=== PATIENT | male | born 1935 | race Caucasian/White ===

== ENCOUNTER 2021-11-16 09:41 | Outpatient (CLI) | payer OTHER, SELFPAY ==
--- NOTE | 2021-11-16 10:05 | USCV_ITS ---
Rafaela Tapan Age: 85 Gender: M : 1935 Exam Date: 11/16/2021 10:29 Ordering Phys: WILSON CAPMOS MD Technologist: Ishmael Loaiza [place] [facility] [place]: AAA HISTORY: Diameter (cm) AP x Transverse x Length Velocity (cm/s) Waveform Prox Aorta: 2.72 x 3.19 x 5.35 81.80 Mid Aorta: 1.73 x 2.13 x 132.80 Distal Aorta: 3.76 x 3.79 x 6.61 107.40 Right Iliac Prox: 1.08 x 0.98 x 118.90 Left Iliac Prox: 1.50 x 1.08 x 118.90 Stent Prox Landing x x Aneurysmal Sac Max x x Lt Lat Sac Dim Rt Lat Sac Dim Stent Dist Landing x x Right Iliac Stent x x Left Iliac Stent x x Right Renal Art Left Renal Art FINDINGS: Comparison: none available. A fusiform abdominal aortic aneurysm is noted with a maximal diameter of 3.8 cm. Atherosclerotic plaque is noted in the abdominal aorta. There is evidence of atherosclerotic plaque no significan stenosis in the right common iliac artery. There is evidence of atherosclerotic plaque no significan stenosis in the left common iliac artery. CONCLUSIONS A fusiform abdominal aortic aneurysm is noted with a maximal diameter of 3.[address] Carly Angel DO (Electronically Signed) Final Date: 16 November 2021 15:03 S
== END 2021-11-16 09:42 | disposition home or self-care (01) ==
LOC: RAD 09:41
PROVIDERS: PCP Family Medicine; Visit Provider Family Medicine
DX: I71.4 Abdominal aortic aneurysm, without rupture (principal)
CPT/HCPCS: 93978

== ENCOUNTER 2022-11-16 08:44 | Outpatient (CLI) | payer OTHER, SELFPAY ==
--- NOTE | 2022-11-16 09:38 | USCV_ITS ---
Tapan Russo Age: 86 Gender: M : 1935 Exam Date: 11/16/2022 09:46 Ordering Phys: Mauricio Parks Technologist: CT Exam Location: [facility] [place] Indication: AAA HISTORY: Diameter (cm) AP x Transverse x Length Velocity (cm/s) Waveform Prox Aorta: 2.71 x 2.32 x 73.50 Mid Aorta: 2.54 x 1.99 x 102.10 Distal Aorta: 4.03 x 3.98 x 5.34 116.00 Right Iliac Prox: 1.33 x 1.13 x 147.20 Left Iliac Prox: 1.75 x 1.62 x 116.00 Stent Prox Landing x x Aneurysmal Sac Max x x Lt Lat Sac Dim Rt Lat Sac Dim Stent Dist Landing x x Right Iliac Stent x x Left Iliac Stent x x Right Renal Art Left Renal Art FINDINGS: Comp 11/16/21 CONCLUSIONS Fusiform Distal AAA measuring 4.0 x 3.9 x 5.3cm AP x transverse x length not significantly changed Normal iliac arteries. 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 Colin Martinez MD (Electronically Signed) Final Date: 16 November 2022 12:43 S
== END 2022-11-16 08:45 | disposition home or self-care (01) ==
PROVIDERS: PCP Family Medicine; Visit Provider Family Medicine
DX: I71.40 Abdominal aortic aneurysm, without rupture, unspecified (principal); I70.0 Atherosclerosis of aorta
CPT/HCPCS: 93978

== ENCOUNTER 2023-11-14 12:27 | Outpatient (CLI) | payer OTHER, SELFPAY ==
--- NOTE | 2023-11-14 12:36 | USCV_ITS ---
Rafaela Tapan Age: 87 Gender: M : 1935 Exam Date: 11/14/2023 12:49 Ordering Phys: Mauricio Parks Technologist: Exam Location: [facility] [place] Indication: aaa HISTORY: Diameter (cm) AP x Transverse x Length Velocity (cm/s) Waveform Prox Aorta: 1.60 x 1.90 x 110.60 Mid Aorta: 2.20 x 2.30 x 125.20 Distal Aorta: 3.50 x 3.90 x 109.00 Right Iliac Prox: 1.20 x 1.40 x 115.50 Left Iliac Prox: 1.20 x 1.30 x 115.00 Stent Prox Landing x x Aneurysmal Sac Max x x Lt Lat Sac Dim Rt Lat Sac Dim Stent Dist Landing x x Right Iliac Stent x x Left Iliac Stent x x Right Renal Art Left Renal Art FINDINGS: Comparison:. 11/16/21 A fusiform abdominal aortic aneurysm is noted with a maximal diameter of 3.9 cm. No evidence of periaortic fluid is detected. There is evidence of atherosclerotic plaque no significan stenosis in the right common iliac artery. There is evidence of atherosclerotic plaque no significan stenosis in the left common iliac artery. CONCLUSIONS No change seen from prior study. Stable 3.[address] Carly Angel DO (Electronically Signed) Final Date: 14 November 2023 15:20 S
== END 2023-11-14 12:28 | disposition home or self-care (01) ==
LOC: RAD 12:27
PROVIDERS: PCP Family Medicine; Visit Provider Family Medicine
DX: I71.40 Abdominal aortic aneurysm, without rupture, unspecified (principal)
CPT/HCPCS: 93978

== ENCOUNTER 2024-05-13 11:38 | Emergency (ER) | payer OTHER, SELFPAY ==
[2024-05-13 11:46] VITALS: BP 135/53; PULSE 76; RESP 16; TEMP 36.3; O2SAT 95; BMI 27.3
--- NOTE | 2024-05-13 12:11 | ECG_ITS ---
[facility] [place] [facility] Date: 2024-05-13 Pat Name: Tapan Russo Department: Room: Gender: Male Residential Property Tax Appraiser: : 1935 Requested By: Matheus Ferreira Order Number: [id number] Ciera MD: Hira Cha M.D. Measurements Intervals [place] Rate: 81 P: -10 NV: 173 QRS: -58 QRSD: 110 T: 120 QT: 395 QTc: 459 Interpretive Statements SINUS RHYTHM WITH FREQUENT VENTRICULAR PREMATURE COMPLEXES POSSIBLE LEFT ATRIAL ENLARGEMENT [-0.1mV P-WAVE IN V1/V2] LEFT ANTERIOR FASCICULAR BLOCK [QRS AXIS <= -45, QR IN I, RS IN II] INFERIOR MYOCARDIAL INFARCTION , OF INDETERMINATE AGE [40+ ms Q WAVE AND/OR ST/T ABNORMALITY IN II/aVF] ANTEROSEPTAL MYOCARDIAL INFARCTION , OF INDETERMINATE AGE [40+ ms Q WAVE IN V1-V4] MODERATE T-WAVE ABNORMALITY, CONSIDER LATERAL ISCHEMIA [-0.1+ mV T-WAVE IN I/aVL/V5/V6] No previous ECG available for comparison Electronically Signed On 05-16-2024 22:08:16 JV BASEBALL COACH by Hira Cha M.D. [email or web address]
--- NOTE | 2024-05-13 12:12 | XRR_ITS ---
PROCEDURE INFORMATION: Exam: XR Chest Exam date and time: 05/13/2024 12:45 PM Age: 88 years old Clinical indication: Shortness of breath; Additional info: SOB TECHNIQUE: Imaging protocol: Radiologic exam of the chest. Views: 1 view. COMPARISON: US CV duplex aorta [id number] 11/14/2023 12:49 PM FINDINGS: Lungs: There are some indistinct bibasilar opacities likely secondary to small pleural effusions and adjacent subsegmental atelectasis. The remaining lung miranda are clear. Pleural spaces: See lungs Heart/Mediastinum: Heart is enlarged with pulmonary vascular redistribution indicating elevated central venous pressure. Bones/joints: Mild deformity left 5th, 6th and 7th ribs placed secondary to old healed fractures. XR/XR chest 1V portable [id number] IMPRESSION: 1. Cardiomegaly with elevated central venous pressure. 2. Small bibasilar pleural effusions there may be cardiogenic in nature with adjacent bibasilar subsegmental atelectasis.
[2024-05-13 13:17] LABS: Basophils % 0.6 %; Eosinophils # 0.1 10^3/uL (0.0-0.8); Eosinophils % 2.1 %; Hematocrit 38.5 % (37-53); Lymphocytes # 0.9 10^3/uL (0.8-4.8); Lymphocytes % 18.2 %; Mean Corpuscular HGB Conc 32.5 g/dL (30-55); Mean Corpuscular Hemoglobin 32.4 pg (27-33); Mean Corpuscular Volume 99.7 fl (82-101); Mean Platelet Volume 10.1 fL (7.4-10.4); Monocytes # 0.6 10^3/uL (0.2-0.9); Monocytes % 11.1 %; Neutrophils # 3.47 10^3/uL (1.8-7.7); Neutrophils % 67.8 %; Nucleated Red Blood Cells % 0 %; Platelet Count 260 10^3/cmm (157-399); Red Blood Count 3.86 10^6/uL (3.85-5.65); Red Cell Distribution Width 13.7 % (12.1-15.1); White Blood Count 5.12 10^3/uL (3.29-11.43)
[2024-05-13 13:51] VITALS: BP 132/82; PULSE 76; RESP 16; O2SAT 97
[2024-05-13 13:53] LABS: Alanine Aminotransferase 29 U/L (0-41); Albumin Level 4.4 g/dL (3.5-5.2); Alkaline Phosphatase 69 U/L (40-130); Anion Gap 12.8 (5-19); Aspartate Amino Transferase 21 U/L (0-40); Blood Urea Nitrogen 16 mg/dL (8-23); Calcium 9.4 mg/dL (8.5-10.5); Carbon Dioxide 28 mmol/L (22-29); Chloride 100 mmol/L (98-107); Creatinine Clr Calc Pharmacy 50.2492; Globulin 2.4 g/dL (1.3-4.6); Glucose 101 mg/dL (65-115); NT Pro B Type Natriuretic Pept 6536 pg/mL (0-450); Osmolality Calculated 283 mOsm/kg (285-295); Potassium 4.8 mmol/L (3.5-5.1); Sodium 136 mmol/L (136-145); Total Bilirubin 0.8 mg/dL (0.15-1.2); Total Protein 6.8 g/dL (6.6-8.7)
[2024-05-13] MEDS: FUROsemide 10 mg/mL SDV 10mL 80 MG IVP (14:00)
[2024-05-13 14:02] VITALS: BP 120/71; PULSE 73; RESP 16; O2SAT 95
--- NOTE | 2024-05-13 14:07 | ED_ITS ---
HPI - SOB/Dyspnea 2 General: Chief Complaint: Shortness of Breath/Dyspnea Stated Complaint: feet/legs swollen/SOB Time Seen by Provider: 05/13/24 13:53 Source: patient Mode of arrival: ambulatory Limitations: no limitations History of Present Illness: HPI Narrative: 88-year-old male states that having some slight shortness of breath over the last week he has been having some leg swelling as well. He is concerned he has CHF. He denies any chest pain denies any cough denies any fever he is not hypoxic here. Denies any worse improved factors. Associated symptoms: Deny abdominal pain, chest pain, fever(s), nausea or vomiting Related Data Home Medications Medication Instructions Recorded Confirmed finasteride 5 mg tablet tab PO 04/28/22 04/28/22 levothyroxine 25 mcg capsule 25 mcg PO DAILY 04/28/22 04/28/22 losartan 100 mg tablet tab PO 04/28/22 04/28/22 nifedipine 30 mg tablet,extended tab PO 04/28/22 04/28/22 release omeprazole 20 mg capsule,delayed cap PO 04/28/22 04/28/22 release simvastatin 80 mg tablet tab PO 04/28/22 04/28/22 tamsulosin 0.4 mg capsule cap PO 04/28/22 04/28/22 Previous Rx's Medication Instructions Recorded prednisone 20 mg tablet 20 mg PO DAILY 5 days #5 tabs 04/28/22 furosemide 40 mg tablet (Lasix) 40 mg PO DAILY #30 tabs 05/13/24 Allergies Allergy/AdvReac Type Severity Reaction Status Date / Time No Known Allergies Allergy Unverified 04/28/22 18:18 Review of Systems 2 Const: Denies: fever(s), chills, body aches or change in appetite ENMT: Denies: throat pain or dental pain Card: Denies: chest pain Resp: Reports: dyspnea GI: Denies: abdominal pain, nausea, vomiting or diarrhea Musc: Denies: neck pain or back pain Skin/Breast: Denies: rash Neuro: Denies: headache(s) Physical Exam 2 Const: COMMON NORMALS: no acute distress, patient oriented x3 and healthy appearing HENMT: COMMON NORMALS: normocephalic and atraumatic HEAD & SCALP: n ormocephalic and atraumatic Eye: COMMON NORMALS: Equal, round and reactive pupils present and EOMs intact bilaterally PUPIL: Yes Equal, round and reactive pupils present Neck/C-Spine: COMMON NORMALS: full ROM and supple Chest: COMMONS NORMALS: normal inspection of the chest and normal palpation of entire chest wall Resp: COMMON NORMALS: normal respiratory effort, No retractions, No use of accessory muscles and clear to auscultation bilaterally AUSCULTATION: clear to auscultation bilaterally Cardio: COMMON NORMALS: regular rate, regular rhythm and No murmurs present (Cardio) RATE: regular rate RHYTHM: regular rhythm Extremity: COMMON NORMALS: full ROM NARRATIVE EXTREMITY EXAM: 2+ le edema Neuro: COMMON NORMALS: patient oriented x3, moves all extremities and no focal motor deficits Psych: COMMON NORMALS: mental status grossly normal, Normal thought process present and cooperative THOUGHT PROCESS: Normal thought process present Skin: COMMON NORMALS: no rashes or lesions noted and no wounds GENERAL SKIN EXAM: no rashes or lesions noted Course 2 Vital Signs: Vital signs: Vital Signs Temperature 97.4 F L 05/13/24 11:46 Pulse Rate 72 05/13/24 14:29 Respiratory Rate 16 05/13/24 14:29 Blood Pressure 127/65 05/13/24 14:29 Pulse Oximetry 97 05/13/24 14:29 Oxygen Delivery Me thod Room Air 05/13/24 11:46 MDM - SOB/Dyspnea Medical Decision Making Patient presents for shortness of breath along with lower extremity edema did give him dose of Lasix he has no hypoxia here has been having no chest pain we will start him on Lasix we will get him follow-up with cardiology I informed him if he worsens he is return he understands agrees to plan. Medical Records I reviewed the patient's medical records. Lab Data I reviewed the patient's lab results. 05/13/24 12:55 05/13/24 12:55 Labs/Radiology: Radiology Impressions Chest X-Ray 05/13/24 12:12 IMPRESSION: 1. Cardiomegaly with elevated central venous pressure. 2. Small bibasilar pleural effusions there may be cardiogenic in nature with adjacent bibasilar subsegmental atelectasis. Laboratory Results WBC 5.12 10^3/uL (3.29-11.43) 05/13/24 12:55 RBC 3.86 10^6/uL (3.85-5.65) 05/13/24 12:55 Hgb 12.50 g/dL (11.27-16.99) 05/13/24 12:55 Hct 38.5 % (37-53) 05/13/24 12:55 MCV 99.7 fl (82-101) 05/13/24 12:55 MCH 32.4 pg (27-33) 05/13/24 12:55 MCHC 32.5 g/dL (30-55) 05/13/24 12:55 RDW 13.7 % (12.1-15.1) 05/13/24 12:55 Plt Count 260 10^3/cmm (157-399) 05/13/24 12:55 MPV 10.1 fL (7.4-10.4) 05/13/24 12:55 Neut % (Auto) 67.8 % 05/13/24 12:55 Lymph % (Auto) 18.2 % 05/13/24 12:55 Mcpherson % (Auto) 11.1 % 05/13/24 12:55 Eos % (Auto) 2.1 % 05/13/24 12:55 Baso % (Auto) 0.6 % 05/13/24 12:55 Neut # (Auto) 3.47 10^3/uL (1.8-7.7) 05/13/24 12:55 Lymph # (Auto) 0.9 10^3/uL (0.8-4.8) 05/13/24 12:55 Mcpherson # (Auto) 0.6 10^3/uL (0.2-0.9) 05/13/24 12:55 Eos # (Auto) 0.1 10^3/uL (0.0-0.8) 05/13/24 12:55 Baso # (Auto) 0.0 10^3/uL (0.0-0.1) 05/13/24 12:55 Nucleated RBC % (auto) 0 % 05/13/24 12:55 Nucleated RBCs # 0.0 /100WBC 05/13/24 12:55 Sodium 136 mmol/L (136-145) 05/13/24 12:55 Potassium 4.8 mmol/L (3.5-5.1) 05/13/24 12:55 Chloride 100 mmol/L (98-107) 05/13/24 12:55 Carbon Dioxide 28 mmol/L (22-29) 05/13/24 12:55 Anion Gap 12.8 (5-19) 05/13/24 12:55 BUN 16 mg/dL (8-23) 05/13/24 12:55 Creatinine 1.1 mg/dL (0.7-1.2) 05/13/24 12:55 GFR Calculation Not Reportable 05/13/24 12:55 Glucose 101 mg/dL (65-115) 05/13/24 12:55 Calculated Osmolality 283 mOsm/kg (285-295) L 05/13/24 12:55 Calcium 9.4 mg/dL (8.5-10.5) 05/13/24 12:55 Total Bilirubin 0.8 mg/dL (0.15-1.2) 05/13/24 12:55 AST 21 U/L (0-40) 05/13/24 12:55 ALT 29 U/L (0-41) 05/13/24 12:55 Alkaline Phosphatase 69 U/L (40-130) 05/13/24 12:55 NT-Pro-B Natriuret Pep 6536 pg/mL (0-450) H 05/13/24 12:55 Total Protein 6.8 g/dL (6.6-8.7) 05/13/24 12:55 Albumin 4.4 g/dL (3.5-5.2) 05/13/24 12:55 Globulin 2.4 g/dL (1.3-4.6) 05/13/24 12:55 All radiology interpretation(s) finalized by discharge EKG Data EKG 1: I personally reviewed and interpreted this EKG as follows: EKG Interpretation Date: 05/13/24 EKG interpretation time: 11:49 Interpretation: nsr hr [address] elevation qrs 110 qtc 422 Discharge Plan Discharge Patient Disposition: Home Clinical Impression: Edema of both lower legs Condition: Stable Prescriptions: New furosemide [Lasix] 40 mg tablet 40 mg PO DAILY Qty: 30 0RF No Action levothyroxine 25 mcg capsule 25 mcg PO DAILY finasteride 5 mg tablet PO tamsulosin 0.4 mg capsule PO simvastatin 80 mg tablet PO losartan 100 mg tablet PO omeprazole 20 mg capsule,delayed release(DR/EC) PO nifedipine 30 mg tablet extended release PO prednisone 20 mg tablet 20 mg PO DAILY 5 Days Qty: 5 0RF Discharge Orders: Discharge ED (Routine); Ordered 05/13/24 Ordered By: Matheus Ferreira Referrals: Hira Cha M.D [Physician] - 4-7 days Mauricio Parks [Primary Care Provider] - Discharge Diet: Advance as tolerated Discharge Activity: Resume usual activity Patient Instructions: Leg Edema (ED), Edema (ED) Coding Level of Care Code ED Sports Lawyer for Lennie Garcia
[2024-05-13 14:29] VITALS: BP 127/65; PULSE 72; RESP 16; O2SAT 97
--- NOTE | 2024-05-16 09:32 | DCPLANNER ---
messaged heart care for er f/u
== END 2024-05-13 14:38 | disposition home or self-care (01) ==
PROVIDERS: Emergency Provider Emergency Medicine; PCP Family Medicine
DX: R60.0 Localized edema (principal)
CPT/HCPCS: 71045; 80053; 83880; 85025; 93005; 96374; 99285; J1940

== ENCOUNTER 2024-06-04 13:19 | Outpatient (CLI) | payer OTHER, SELFPAY ==
[2024-06-04 13:21] VITALS: BMI 27.3
--- NOTE | 2024-06-04 13:31 | ECG_ITS ---
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 Interpretive Statements EXERCISE STRESS TEST EXERCISE DATA: The patient was exercised by Tomas protocol. Baseline heart rate was 81 beats per minute. Baseline blood pressure was 109/67 millimeters of mercury. Maximal predicted heart rate was 134 beats per minute. Maximum heart rate achieved was 130 which was 97% of the maximum predicted heart rate. Maximum blood pressure was 144/47 millimeters of mercury. Total exercise time was 2 minutes and 53 seconds. Maximum METs achieved was 5.5. The reason for ending the test was completion of protocol. The patient complained of shortness of breath during the stress test, which then resolved at the end of the test. ELECTROCARDIOGRAM: BASELINE: Showed sinus rhythm, left axis deviation, PVCs and interventricular conduction delay, no significant ST-T changes at the baseline noted. [] EXERCISE: At the peak exercise level, [] No significant ST-T changes suggestive of ischemia noted. [] RECOVERY: During the recovery period, heart rate dropped appropriately. No significant ST-T changes in the recovery suggestive of ischemia noted. [] CONCLUSION: 1. Exercise capacity is fair 2. Heart rate response was appropriate 3. Blood pressure response was appropriate 4. Symptoms not suggestive of ischemia. 5. Electrocardiogram portion of the stress test was not suggestive of ischemia. Electronically Signed On 06-25-2024 21:50:47 CDT by Hira Cha M.D. [email or web address]
--- NOTE | 2024-06-04 13:32 | USCV_ITS ---
Rafaela Tapan Age: 88 Gender: M : 1935 Exam Date: 06/04/2024 13:47 Ordering Phys: Mauricio Parks Technologist: Exam Location: [facility] – [place] Indication: Edema Rhythm: Sinus Patient History: Cardiac Medications: none Medications in past 24 hours: none Contrast: Stress Results Protocol: Tomas Total dose(mL): Exercise Duration (min:sec): 02:53 METS: 5.5 Resting HR: 81 Resting BP: 115 / 72 Peak HR: 130 Peak BP: 144 / 67 Max Predicted HR: 134 97 % Max Predicted HR Target HR: 114 Double Product: [id number] Stress Summary: The patient's target heart rate was achieved BP Response: Normal Reason for Termination: Test terminated after reaching maximum heart rate Cardiac Symptoms: Short of Breath ECG Analysis Resting ECG: Sinus rhythm with interventricular conduction delay and occasional PVCs. Stress ECG: Sinus tachycardia with no significant ST T wave changes Arrhythmia: PVCs MEASUREMENTS (Male/Female) Normal Values FINDINGS At baseline LV systolic function is mildly reduced with EF of 40 to 45%. Moderate hypokinesis of anterolateral and inferolateral ma are seen. At Stress imgaging, LV systolic function slightly increases to 50 to 55%. However significant hypokinesis of inferolateral and anterolateral ma seen. CONCLUSIONS 1. Abnormal baseline echocardiogram with EF of 40-45% and regional wall motion abnormalities. This already reduces sensitivity and specificity of stress echocardiogram 2. After exercise worsening hypokinesis of inferolateral and anterolateral ma seen, demonstrating abnormal response and abnormal stress test 3. EKG portion of the stress test does not shows significant abnormalities. Hira Cha MD (Electronically Signed) Final Date: 14 June 2024 14:09 S
[2024-06-04 14:15] VITALS: BP 112/64; PULSE 86
== END 2024-06-04 13:20 | disposition home or self-care (01) ==
PROVIDERS: PCP Family Medicine; Visit Provider Family Medicine
DX: R60.9 Edema, unspecified (principal); R93.1 Abnormal findings on diagnostic imaging of heart and coronary circulation; I51.89 Other ill-defined heart diseases
CPT/HCPCS: 93017; 93350

== ENCOUNTER → 2024-06-07 08:48 | Outpatient (BNVA) | payer OTHER, SELFPAY | PROVIDERS: PCP Family Medicine; Visit Provider Internal Medicine | DX: R06.09 Other forms of dyspnea (principal); R60.0 Localized edema; R06.02 Shortness of breath | CPT/HCPCS: 99204 ==

== ENCOUNTER → 2024-06-28 11:38 | Outpatient (BNVA) | payer OTHER, SELFPAY | PROVIDERS: PCP Family Medicine; Visit Provider Internal Medicine | DX: Z09 Encounter for follow-up examination after completed treatment for conditions other than malignant neoplasm (principal); R06.00 Dyspnea, unspecified; R60.0 Localized edema; R94.39 Abnormal result of other cardiovascular function study; Z87.891 Personal history of nicotine dependence; R58 Hemorrhage, not elsewhere classified | CPT/HCPCS: 36415; 80048; 85025; 85610; 99204 ==

== ENCOUNTER 2024-07-11 13:53 | Outpatient (CLI) | payer OTHER, SELFPAY ==
--- NOTE | 2024-07-11 14:15 | USCV_ITS ---
Tapan Mcdaniel Age: 88 Gender: M : 1935 Exam Date: 07/11/2024 14:05 Ordering Phys: Hira Cha M.D ([email or web address]) Technologist: Exam Location: [facility] [place] Indication: CP BP: 120 / 70 HR: 72 Rhythm: Sinus Technical Quality: Adequate MEASUREMENTS (Male / Female) Normal Values 2D ECHO LV Diastolic Diameter PLAX 5.7 cm 4.2 - 5.9 / 3.9 - 5.3 cm IVS Diastolic Thickness 1.1 cm 0.6 - 1.0 / 0.6 - 0.9 cm IVS Systolic Thickness 1.8 cm LVPW Diastolic Thickness 1.4 cm 0.6 - 1.0 / 0.6 - 0.9 cm LVPW Systolic Thickness 1.9 cm LVOT Diameter 2.0 cm LV Ejection Fraction 2D Teich 60.0 % LV Ejection Fraction MOD 4C 33.4 % LV Ejection Fraction MOD 2C 31.1 % LV Ejection Fraction 2C AL 32.0 % LA Diameter 4.6 cm RA Systolic Volume 4C AL 69.4 ml RA Systolic Volume 4C MOD 68.8 ml Aorta at Sinotubular Diameter 3.2 cm IVC Diameter 1.7 cm M-MODE LA Ao Ratio MM 1.7 AV Cusp Separation MM 1.7 cm DOPPLER AV Peak Velocity 160.0 cm/s LVOT Peak Velocity 111.0 cm/s AV Area Cont Eq vti 2.6 cm squared AV Area Cont Eq pk 2.3 cm squared MV Peak Velocity 168.0 cm/s MV Area PHT 5.3 cm squared Mitral E to A Ratio 1.9 TV Peak Velocity 234.5 cm/s TR Peak Velocity 336.0 cm/s TR Peak Gradient 45.2 mmHg TV Peak E Velocity 99.0 cm/s PV Peak Velocity 91.0 cm/s FINDINGS Left Ventricle Left ventricular is normal in size. LV systolic function is severely reduced with EF of 25-30%. Moderate global hypokinesis with severe hypokinesis of inferolateral, anterior and anterolateral ma. Right Ventricle Normal in size and function Right Atrium Dilated Left Atrium Dilated Mitral Valve Mild mitral annular calcification. Mild mitral regurgitation. Aortic Valve Aortic valve is thickened. No significant stenosis or regurgitation Tricuspid Valve Mild tricuspid regurgitation. RVSP is 45-50 mmHg. This is consistent with the moderate pulmonary hypertension Pulmonic Valve Mild pulmonic regurgitation. Pericardium Normal Aorta Normal in size IVC Appears to be normal CONCLUSIONS LV systolic function is severely reduced with EF of 25-30%. Above mentioned regional wall motion abnormalities. Biatrial dilation Mild mitral regurgitation Mild tricuspid regurgitation. Moderate pulmonary hypertension Mild pulmonic regurgitation. Hira Cha MD (Electronically Signed) Final Date: 17 July 2024 10:48 S
== END 2024-07-11 13:54 | disposition home or self-care (01) ==
PROVIDERS: PCP Family Medicine; Visit Provider Internal Medicine
DX: I08.1 Rheumatic disorders of both mitral and tricuspid valves (principal); I27.20 Pulmonary hypertension, unspecified; R07.9 Chest pain, unspecified; R06.02 Shortness of breath
CPT/HCPCS: 93306

== ENCOUNTER 2024-07-17 08:38 | Outpatient (CLI) | payer OTHER, SELFPAY ==
--- NOTE | 2024-07-17 09:00 | XACV_ITS ---
Exam Room: 2 Ht: 173 cm Wt: 86 kg BSA: 2.05 m2 Gender: Male : 1935 Any Known Allergies: No known allergies Exam Priority: Routine Procedure(s): Procedure Description: Diagnostic procedure Procedure Description: Right Heart Catheterization Procedure Description: O2 saturation Procedure Description: Coronary IVUS Procedure Description: Miscellaneous Procedure Description: ACT Procedure Description: Coronary Angiography Procedure Description: Pressure Wire Diagnostic Cath Status: Elective Diagnostic Findings * INDICATION: LV dysfunction/ abnormal stress test. * Left Main has mild 20% ostial stenosis. * Circumflex has no disease. * LAD has significant 70% proximal stenosis. IVUS shows an MLA of 3.4mm2. iFR could not be performed because of equipment malfunction. * RCA has mid to distal severe 70-80% stenosis. * Left circumflex artery is a large vessel with no significant disease. Conclusions 1. Severe proximal LAD and mid to distal RCA stenosis. Patient has severely elevated cardiac pressures at this time. Needs diuresis before PCI. Patient given option of inpatient diuresis but he wants outpatient management. Will be seen in office in 1 week and then scheduled for PCI of LAD and RCA. Recommendations * We will uptitrate diuretics . Will have staged PCI of RCA and LAD. Outpatient cardiology follow up in 1 week. Interventional RX Recommendation: PCI w/o planned CABG Diagnostic RX Recommendation: PCI w/o planned CABG Anticoagulation: Heparin Pressures Phase:Rest AO : 113 / 74 ( 99 ) @ 3:08:00 PM RV : 72 / 12 / 16 @ 2:54:00 PM PA : 70 / 33 ( 49 ) @ 2:53:00 PM RA : a wave = 23 v wave = 14 mean = 14 @ 2:55:00 PM PCW : a wave = 42 v wave = 52 mean = 39 @ 2:52:00 PM O2 Content Phase:Rest PA : O2 Content O2: 47.3 @ 2:53:00 PM Saturations Phase:Rest AO : 89 @ 3:08:00 PM PA : 47 @ 2:53:00 PM Cardiac Output Phase:Rest Angie : 3 @ 2:54:50 PM Angie Cardiac Index: 2 @ 2:54:50 PM Flow Phase:Rest Qp : 3 @ 2:54:50 PM Qs : 3 @ 2:54:50 PM Clinical Evaluation EBL: 5mL-10mL Procedural Details Pre-Procedure Time Out. Identified patient by full name and date of as verbalized by the patient/guarantor. Does the consent match the physician's order: Yes. Accurate & Complete Informed Consent: Yes. Inpatient/Outpatient History & Physical on Chart: Yes. If H&P is completed, is and addenduem needed: No; If yes, is the addendum complete: N/A. Visualize and Verify Site with Patient/Guarantor: N/A. Relevant Radiology Images available: Yes. Pre-op teaching completed and patient verbalized understanding. The risks, benefits, and alternatives of sedation and/or procedure were discussed by physician. The patient agrees to continue. Procedure started. [facility] Clinical Fraility Score: 4: Vulnerable. Manager Cardiology Indications: LV Dysfunction/GODDARD/Abnormal stress echo. Chest Pain Symptom Assessment: Atypical Angina. Cardiovascular Instability: No. Correct patient, site and procedure confirmed by cath team. PERRLA. Strong, equal hand collections clerk bilaterally. Lungs clear x 5 lobes. IV Site on Arrival: 20 gauge in the right anticubital for the RHC procedure. IV Site on Arrival: 20 gauge in the left anticubital. IV Fluids: 0.9% NaCl at KVO. 50 mL infused prior to receiver/laborer. Pre Procedural Pulses: bilateral dorsalis pedis was Doppled. Pre Procedural Pulses: bilateral posterior tibial was Doppled. Pre Procedural Pulses: bilateral radial was 2+. Patient on room air for RHC. right groin was prepped with chloroprep then draped in the usual sterile fashion. right radial was prepped with chloroprep then draped in the usual sterile fashion. right brachial was prepped with chloroprep then draped in the usual sterile fashion. Physician notified. Baseline sample Acquired. HR: 79 BPM. Patient's roommate is in CPRU rom #2. Dr. Cha will update at the compeltion of the procedure. Equipment: 6F - Radial. Cardiac Cath Pack. Cloze Manifold Kit Model BT 2000. Heparinized Saline (2 units/mL), 1000 mL bag. Physician arrived. Physician scrubbed in. Immediate Pre-Procedure Time Out. Correct Patient: Yes; Correct Procedure: Yes; Correct Site: Yes; Correct Patient Position: Yes; Correct Supplies: Yes; Dried Flammable Prep: Yes; Blood Products Available: N/A;. Micropuncture wire inthrough the existing 20g PIV in the right brachial vein. Lidocaine 1% infiltrated to the right brachial. [place]-Carlos catheter inserted. [place] guidewire in through the swan. Oximetry samples were obtained. Normal venous range: 60-85%. Normal arterial range: 95-100%. Pressure measurements obtained. [place]-Carlos out. RT called to run sats. Lidocaine 1% infiltrated to the right radial. Arterial access obtained. A 5 [place] TIG catheter in over the exchange J wire. Hand injection performed through the catheter. exchange J wire out. 0.035 x 260cm stiff angled glidewire in through the catheter. Glidewire out. Multiple views taken of right coronary artery. Catheter removed over the exchange J wire. A 5 [place] JL3.5 catheter in over the exchange J wire. Multiple views taken of left coronary artery. Catheter removed over the exchange J wire. A 5 [place] JL4 catheter in over the exchange J wire. Multiple views taken of left coronary artery. Catheter removed over the exchange J wire. 6 [place] XB 3 guide catheter was inserted over the exchange J wire. iFR guidewire was advanced through the guide catheter to lesion in the left main. iFR wire out to re-shape. iFR guidewire was advanced through the guide catheter to lesion in the left main. iFR measurement of the left main obtained = 1.06. IVUS catheter in over the iFR wire. IVUS of the left main performed. IVUS catheter out over the iFR wire. Runthrough guidewire was advanced through the guide catheter to the LAD. iFR wire out. IVUS catheter in over the Runthrough guidewire. IVUS of the LAD performed. IVUS catheter out over the Runthrough guidewire. Runthrough wire out. Guide catheter out. Dr. Cha scrubbed out. ACT drawn. Results seconds. Therapeutic limits - pre-heparin administration 90-150 seconds and monitoring heparin during a vascular procedure >250 seconds. A Manual Compression was successful obtaining hemostatsis at the Right Brachial Vein insertion site. A TR Band was successful obtaining hemostatsis at the Right Radial artery insertion site. Post Procedure: Pulses reassessed and unchanged. PERRLA. Strong, equal hand collections clerk bilaterally. No VTE prophylaxis required. Medication's Wasted: Lidocaine 1% = 16 mL. Medication's Wasted: Nitro = 49.6 mg. Medication's Wasted: Heparin = 3000 untis. Medication's Wasted: Other = Versed 1 mg. Medication's Wasted: Other = Fentanyl 50 mcg. Total IV fluids: 32 mL. Post-op diagnosis: Significant Proximal LAD and Mid RCA stenosis, elevated cardiac pressures. Will diuresis and stage intervention. Complications: none. Estimated blood loss: 5mL-10mL. Responsiveness - Normal response to verbal stimuli; alert and oriented, PERRLA. Airway - Unaffected, no intervention required; spontaneous ventilation. Circulation: W/N/L, pulses unchanged. Nausea/Vomiting: No. Procedure completed. Patient transferred by wheelchair to ICU. Vital chart was stopped. Access Site Site: Right Brachial Vein Sheath Size: 6 Fr Hemostasis Method: Manual Compression Hemostasis Success: Successful Site: Right Radial artery Sheath Size: 6 Fr Hemostasis Method: TR Band Hemostasis Success: Successful Procedure Medications Start: 1:30 PM Stop: 1:30 PM Medication: Benadryl Amount: 25 mg Route: I.V. Start: 2:03 PM Stop: 2:03 PM Medication: Heparin Amount: 5000 units Route: I.V. Start: 1:46 PM Stop: 1:46 PM Medication: Versed Amount: 1 mg Route: I.V. Start: 1:46 PM Stop: 1:46 PM Medication: Fentanyl Amount: 50 mcg Route: I.V. Start: 2:00 PM Stop: 2:00 PM Medication: Nitrogylcerin Amount: 200 mcg Route: I.A. Start: 2:30 PM Stop: 2:30 PM Medication: Heparin Amount: 3000 units Route: I.V. Start: 2:18 PM Stop: 2:18 PM Medication: Nitrogylcerin Amount: 200 mcg Route: I.A. I, the attending physician, have reviewed and verified all procedure medications. Yes, all medications given per verbal order History/Risk Factors Hypertension: No Dyslipidemia: No Peripheral Arterial Disease (PAD): No Myocardial Infarction ([place]): No Obesity: No Renal Disease: No Tobacco Use: Former Prior Interventions PCI: No CABG: No Valve Surgery: No Report Signatures Finalized by Hira Cha MD on 07/28/2024 11:43 AM
[2024-07-17] MEDS: diphenhydrAMINE 50 mg Capsule PO (09:35)
[2024-07-17 09:42] VITALS: BP 132/73; PULSE 53; RESP 16; TEMP 36.4; O2SAT 96; BMI 28.7
[2024-07-17 09:43] LABS: Anion Gap 14.9 (5-19); Blood Urea Nitrogen 20 mg/dL (8-23); Calcium 9.3 mg/dL (8.5-10.5); Carbon Dioxide 25 mmol/L (22-29); Chloride 103 mmol/L (98-107); Glucose 100 mg/dL (65-115); Osmolality Calculated 291 mOsm/kg (285-295); Potassium 3.9 mmol/L (3.5-5.1); Sodium 139 mmol/L (136-145)
--- NOTE | 2024-07-17 13:45 | W.PM.OPSUD ---
Surgery/Procedure H&P Update DATE OF PROCEDURE: July 17, 2024 DATE H&P PERFORMED: 06/28/24 H&P UPDATE INFORMATION: I have reviewed H&P completed within last 30 days, I have examined patient prior to procedure and No changes to prior documentation PREOP DIAGNOSIS: LV dysfunction/abnormal stress test PRIMARY INDICATION FOR PROCEDURE: LV dysfunction/abnormal stress test PLANNED PROCEDURE: Operation Date: 07/17/24 10:00 Proposed Procedures p Cardiac Catheterization - RLHC w/wo LV & [place](Bilateral) - Hira Cha M.D Possible percutaneous coronary intervention PATIENT REASSESSED PRIOR TO SEDATION, WITH NO CHANGE NOTED: Yes PHYSICAL EXAM: alert, oriented x 3, clear to auscultation bilaterally and regular rate & rhythm AIRWAY EVAL/ANESTHESIA PLAN: normal airway, ASA III, Local Anesthesia, Risks, benefits & alternatives of sedation and/or procedure discussed and Patient agrees to continue as planned ADDITIONAL INFORMATION: Moderate sedation
[2024-07-17 14:03] LABS: Alveolar-Arterial Oxygen Gradi 8.3 mmHg (5-10); Arterial Blood Gas Hematocrit 35.9 % (42-52); Blood Gas Operator Identificat BROMA; Blood Gas Sample Type Arterial; Carboxyhemoglobin 1.1 %THgb (0.4-20.1); HGB O2 Sat 46.4 % (95-100); Methemoglobin 0.8 % (0.4-1.5); Oxygen Device ROOM AIR; Total Hemoglobin 11.7 g/dL (14-18)
[2024-07-17 14:05] LABS: Blood Gas Sample Site PA
[2024-07-17 14:09] LABS: Alveolar-Arterial Oxygen Gradi 5.4 mmHg (5-10); Arterial Blood Gas Hematocrit 35.6 % (42-52); Blood Gas Operator Identificat BROMA; Blood Gas Sample Site AO; Blood Gas Sample Type Arterial; Carboxyhemoglobin 1.2 %THgb (0.4-20.1); HGB O2 Sat 87.5 % (95-100); Methemoglobin 0.9 % (0.4-1.5); Oxygen Device ROOM AIR; Total Hemoglobin 11.6 g/dL (14-18)
[2024-07-17 15:09] VITALS: PULSE 90
[2024-07-17 15:10] VITALS: PULSE 93; RESP 25
[2024-07-17 15:13] VITALS: BP 115/73; PULSE 87; RESP 16
[2024-07-17 15:15] VITALS: BP 115/73; PULSE 84; RESP 29; TEMP 36.1; O2SAT 92
[2024-07-17 15:27] VITALS: BMI 28.5
[2024-07-17 15:42] VITALS: PULSE 87
--- NOTE | 2024-07-17 17:05 | PM.PROC ---
Procedure Note: Date of procedure: 07/17/24 Pre-procedure diagnosis: LV dysfunction/abnormal stress test Post-procedure diagnosis: other (Severe RCA and proximal LAD stenosis) Procedure: Severe RCA and proximal LAD stenosis. Patient has elevated right and left-sided cardiac pressures. Will diurese patient and plan for PCI as outpatient. Performing Provider: Hira Cha Estimated blood loss (mL): 10 Complications: None Condition: stable Disposition: same day Coding Level of Care Code Acute Code for Lennie Garcia
--- NOTE | 2024-07-17 17:12 | PC.NURSE ---
Patient arrived from laboratory chemist at 1515 with a TR band to the right wrist. Patient was stable and comfortable. At 1713 TR band was removed with no hematoma and bleeding present.
--- NOTE | 2024-07-17 17:42 | PC.NURSE ---
Dr. Cha ordered to give the patient 40 mg of lasix IVP once before going home.
[2024-07-17] MEDS: FUROsemide 10 mg/mL SDV 4mL 40 MG IVP (17:55)
--- NOTE | 2024-07-17 18:33 | PC.NURSE ---
Patient was given and explained all discharge instructions. All prescriptions were sent to their preferred pharmacy. Patient was stable upon discharge. Patient left with friend.
== END 2024-07-17 18:25 | disposition home or self-care (01) ==
LOC: CCL 14:54 → ICU 15:09
PROVIDERS: PCP Family Medicine; Visit Provider Internal Medicine
DX: I25.10 Atherosclerotic heart disease of native coronary artery without angina pectoris (principal); I50.1 Left ventricular failure, unspecified; Z87.891 Personal history of nicotine dependence; K21.9 Gastro-esophageal reflux disease without esophagitis
CPT/HCPCS: 36415; 80048; 82810; 85347; 92978; 93454; 93571; 96374; 96375; 99152; 99153; C1751; C1753; C1769; C1887; C1894; J1200; J1644; J1940; J2250; J3010; J3490; J7030; J9999; Q0163; Q9967

== ENCOUNTER → 2024-07-30 14:48 | Outpatient (BNVA) | payer OTHER, SELFPAY | PROVIDERS: PCP Family Medicine; Visit Provider Nurse Practitioner Family | DX: I25.10 Atherosclerotic heart disease of native coronary artery without angina pectoris (principal); R06.09 Other forms of dyspnea; I11.0 Hypertensive heart disease with heart failure; I50.9 Heart failure, unspecified; E78.5 Hyperlipidemia, unspecified; Z87.891 Personal history of nicotine dependence | CPT/HCPCS: 36415; 80048; 83880; 99214 ==

== ENCOUNTER 2024-08-20 07:12 | Outpatient (CLI) | payer OTHER, MEDICARE, SELFPAY ==
[2024-08-20] VITALS (7 sets, daily range): BP systolic 102–113; BP diastolic 45–61; PULSE 66–77; RESP 16–25; TEMP 36.5–36.9; O2SAT 95–96; BMI 27.0
--- NOTE | 2024-08-20 07:30 | XACV_ITS ---
Exam Room: 2 Ht: 173 cm Wt: 81 kg BSA: 1.98 m2 Gender: Male : 1935 Any Known Allergies: No known allergies Exam Priority: Routine Procedure(s): Procedure Description: Diagnostic procedure Procedure Description: PCI procedure Procedure Description: Drug Eluting Coronary Stent Procedure Description: PTCA Procedure Description: Miscellaneous Procedure Description: ACT Procedure Description: Coronary Angiography Procedure Description: Pressure Wire Diagnostic Cath Status: Elective Diagnostic Findings * INDICATION: Patient is scheduled to have staged PCI of mid to distal RCA and proximal LAD. * Left Main has mild ostial disease. Was confirmed with IVUS during the diagnostic procedure.. * Circumflex has no significant disease. * Proximal Left Anterior Descending: obstructive 70% stenosis, RADHA: 3 flow. This was confirmed to be significant with IVUS on initial angiogram.. * Mid Right Coronary Artery to Distal Right Coronary Artery: obstructive 70% stenosis, RADHA: 3 flow. We performed IFR of RCA which was abnormal at 0.82.. * Coronary angiography shows right dominance. PCI Status: Elective PCI Indication: Staged PCI Interventional Findings * Procedure detail: We engaged RCA with JR4 guide catheter. IV heparin was administered to maintain anticoagulation. iFR was performed and was significantly abnormal at 0.82. We predilated the stenosis with 2.5 x 20 mm NC balloon. This was followed by placement of 2.5 x 30 mm resolute [place] drug-eluting stent. At this time final angiogram was performed that showed excellent stent expansion and no residual stenosis. Guidewire and guide catheter were removed. We then turned our attention to LAD. XB 3.5 guide catheter was used to engage the left main artery. Run-through wire was used to cross the stenosis. We predilated the stenosis with 3.5 x 15 mm noncompliant balloon. This was followed by placement of 3.5 x 18 mm resolute [place] drug-eluting stent. We then postdilated the stent with 3.75 x 8 mm NC balloon. At this time final angiogram was performed that showed excellent stent expansion, no residual stenosis and RADHA-3 flow. Patient left the Quarry Supervisor Open Pit in stable condition.. * Proximal Left Anterior Descendin% stenosis treated with a MDT NC EUPHORA RX [id number] BALLOON, MDT R BINDU 3.5X18 ALONZO, and MDT NC EUPHORA RX [id number] BALLOON. 0% residual stenosis, RADHA: 3 flow. * Mid Right Coronary Artery to Distal Right Coronary Artery: 70% stenosis treated with a MDT NC EUPHORA RX [id number] BALLOON, and MDT R BINDU 2.5X30 ALONZO. 0% residual stenosis, RADHA: 3 flow. Conclusions 1. Severe mid to distal RCA stenosis s/p successful revascularization with 1 stent. Severe proximal LAD stenosis status post successful revascularization with 1 stent.. 2. Proximal Left Anterior Descending was treated with a Balloon, Drug Eluting Stent, and Balloon. 3. Mid Right Coronary Artery to Distal Right Coronary Artery was treated with a Balloon, and Drug Eluting Stent. Recommendations * Dual antiplatelet therapy with aspirin and plavix. * High intensity statin therapy. * Outpatient cardiology follow up in 2 weeks. Interventional RX Recommendation: PCI w/o planned CABG Diagnostic RX Recommendation: PCI w/o planned CABG Anticoagulation: Heparin Pressures Phase:Rest AO : 115 / 63 ( 86 ) @ 12:12:00 PM 96 / 59 ( 76 ) @ 12:20:00 PM 112 / 50 ( 76 ) @ 12:25:00 PM Clinical Evaluation EBL: 5mL-10mL Procedural Details Procedure Consent Obtained. Pre-Procedure Time Out. Identified patient by full name and date of as verbalized by the patient/guarantor. Does the consent match the physician's order: Yes. Accurate & Complete Informed Consent: Yes. Inpatient/Outpatient History & Physical on Chart: Yes. If H&P is completed, is and addenduem needed: No; If yes, is the addendum complete: N/A. Visualize and Verify Site with Patient/Guarantor: N/A. Relevant Radiology Images available: Yes. Pre-op teaching completed and patient verbalized understanding. The risks, benefits, and alternatives of sedation and/or procedure were discussed by physician. The patient agrees to continue. Procedure started. [facility] Clinical Fraility Score: 3: Managing Well. Quarry Supervisor Open Pit Indications: Stable Known CAD. Chest Pain Symptom Assessment: Typical Angina Symptoms. Correct patient, site and procedure confirmed by cath team. Current diagnosis: Chest Pain. PERRLA. Strong, equal hand director of claims bilaterally. Lungs clear x 5 lobes. IV Site on Arrival: 20 gauge in the left anticubital. IV Fluids: 0.9% NaCl at KVO. 0 mL infused prior to laborer [place]. Pre Procedural Pulses: bilateral dorsalis pedis was Doppled. Pre Procedural Pulses: bilateral radial was 1+. Pre Procedural Pulses: bilateral posterior tibial was 1+. Oxygen started at 2liters/min via nasal canula. bilateral groins was prepped with chloroprep then draped in the usual sterile fashion. Baseline sample Acquired. HR: 73 BPM. Baseline sample Acquired. HR: 67 BPM. Physician arrived. Physician scrubbed in. Immediate Pre-Procedure Time Out. Correct Patient: Yes; Correct Procedure: Yes; Correct Site: Yes; Correct Patient Position: Yes; Correct Supplies: Yes; Dried Flammable Prep: Yes; Blood Products Available: Yes;. Lidocaine 1% infiltrated to the right groin. Arterial access obtained with micropuncture set. 6 maldiv[place] JR 4 guide catheter was inserted over the wire. Wire out. Glidewire inserted. Wire out. FFR guidewire was advanced through the guide catheter to lesion in the mid RCA. IFR Result: 0.82. Runthrough guidewire was advanced through the guide catheter to lesion in the mid RCA. IFR wire out. Inflation number : 1 A MDT LUPE EUPHORA RX [id number] BALLOON was prepped and advanced across the Mid RCA , then inflated to 12 AURELIA for 0:14 seconds. Inflation number: 2 The MDT NC EUPHORA RX 2.39V97TC BALLOON was reinflated across the Mid RCA, to 12 AUERLIA for 0:07 seconds. Balloon out. Inflation Number : 3 A MDT R BINDU 2.5X30 ALONZO -Lot Number# _[id number] EXP: 10/28/2025 was prepped and advanced across the Mid RCA. The stent was deployed at 12 AURELIA for 0:20 seconds. Stent balloon out over wire. Results checked. Wire out. ACT drawn. Results out of range high seconds. Therapeutic limits - pre-heparin administration 90-150 seconds and monitoring heparin during a vascular procedure >250 seconds. Guide catheter out over the glidewire. 6 maldivian XB 3.5 guide catheter was inserted over the wire. Runthrough guidewire was advanced through the guide catheter to lesion in the prox LAD. Inflation number : 1 A MDT NC EUPHORA RX 3.68Q44QT BALLOON was prepped and advanced across the Prox LAD , then inflated to 14 AURELIA for 0:13 seconds. Balloon out. Inflation Number : 2 A MDT R BINDU 3.5X18 ALONZO -Lot Number# _[id number] EXP: 10/27/2025 was prepped and advanced across the Prox LAD. The stent was deployed at 12 AURELIA for 0:18 seconds. Stent balloon out over wire. Inflation number : 3 A MDT NC EUPHORA RX [id number] BALLOON was prepped and advanced across the Prox LAD , then inflated to 12 AURELIA for 0:14 seconds. Inflation number: 4 The MDT NC EUPHORA RX 3.89N92OT BALLOON was reinflated across the Prox LAD, to 16 AURELIA for 0:19 seconds. Inflation number: 5 The MDT NC EUPHORA RX 3.89K82CU BALLOON was reinflated across the Prox LAD, to 14 AURELIA for 0:10 seconds. Balloon out. Results checked. Wire out. ACT drawn. Results out of range high results. Therapeutic limits - pre-heparin administration 90-150 seconds and monitoring heparin during a vascular procedure >250 seconds. Guide catheter out. A Right femoral angiogram was performed to determine safe placement of closure device. A Suture was successful obtaining hemostatsis at the Right Femoral artery insertion site. Sheath(s) sutured into position with 2-0 silk and sterile 4x4's and Op-site applied over the site. No oozing or signs and symptoms of hematoma noted. Arterial sheath flushed and connected to tranducer and pressure bag with heparinized saline. Post Procedure: Pulses reassessed and unchanged. PERRLA. Strong, equal hand director of claims bilaterally. No VTE prophylaxis required. ACT drawn. Results 267 seconds. Therapeutic limits - pre-heparin administration 90-150 seconds and monitoring heparin during a vascular procedure >250 seconds. Medication's Wasted: Lidocaine 1% = 10 mL. Medication's Wasted: Other = Fentanyl 50mcg. Medication's Wasted: Heparin = 1000 units. Total IV fluids: 55 mL. Post-op diagnosis: Severe stenosis of mid RCA and Prox LAD. Status post PCI placement of 2 ALONZO. Complications: None. Estimated blood loss: 5mL-10mL. Responsiveness - Normal response to verbal stimuli; alert and oriented, PERRLA. Airway - Unaffected, no intervention required; spontaneous ventilation. Circulation: W/N/L, pulses unchanged. Nausea/Vomiting: No. Procedure completed. Patient transferred by bed to 1st floor. Access Site Site: Right Femoral artery Sheath Size: 6 Fr Hemostasis Method: Suture Hemostasis Success: Successful Procedure Medications Start: 10:56 AM Stop: 10:56 AM Medication: Versed 1 mg and Fentanyl 25 mcg Amount: 1 Route: I.V. Start: 11:02 AM Stop: 11:02 AM Medication: Heparin Amount: 7000 units Route: I.V. Start: 11:09 AM Stop: 11:09 AM Medication: Versed 1 mg and Fentanyl 25 mcg Amount: 1 Route: I.V. Start: 11:31 AM Stop: 11:31 AM Medication: Heparin Amount: 1000 units Route: I.V. Start: 11:38 AM Stop: 11:38 AM Medication: 0.9% Saline Amount: 100 ml/hr Route: I.V. drip Start: 11:51 AM Stop: 11:51 AM Medication: Plavix Amount: 600 mg Route: P.O. I, the attending physician, have reviewed and verified all procedure medications. Yes, all medications given per verbal order History/Risk Factors Hypertension: Yes Dyslipidemia: Yes Peripheral Arterial Disease (PAD): No Myocardial Infarction ([place]): No Obesity: No Renal Disease: No Tobacco Use: Former Prior Interventions PCI: No CABG: No Valve Surgery: No Report Signatures Finalized by Hira Cha MD on 09/06/2024 06:00 PM
[2024-08-20 08:19] LABS: Basophils % 0.8 %; Eosinophils # 0.3 10^3/uL (0.0-0.8); Eosinophils % 5.9 %; Hematocrit 39.3 % (37-53); Lymphocytes # 1.3 10^3/uL (0.8-4.8); Lymphocytes % 26.8 %; Mean Corpuscular HGB Conc 32.8 g/dL (30-55); Mean Corpuscular Hemoglobin 30.9 pg (27-33); Mean Corpuscular Volume 94.2 fl (82-101); Mean Platelet Volume 10.5 fL (7.4-10.4); Monocytes # 0.6 10^3/uL (0.2-0.9); Monocytes % 11.8 %; Neutrophils # 2.58 10^3/uL (1.8-7.7); Neutrophils % 54.5 %; Nucleated Red Blood Cells % 0 %; Platelet Count 219 10^3/cmm (157-399); Red Blood Count 4.17 10^6/uL (3.85-5.65); Red Cell Distribution Width 14.8 % (12.1-15.1); White Blood Count 4.74 10^3/uL (3.29-11.43)
[2024-08-20] MEDS: diphenhydrAMINE 50 mg Capsule PO (08:20)
[2024-08-20 08:56] LABS: Blood Urea Nitrogen 27 mg/dL (8-23); Calcium 9.2 mg/dL (8.5-10.5); Carbon Dioxide 27 mmol/L (22-29); Chloride 101 mmol/L (98-107); Creatinine Clr Calc Pharmacy 45.8348; Glucose 96 mg/dL (65-115); Osmolality Calculated 291 mOsm/kg (285-295); Sodium 138 mmol/L (136-145)
[2024-08-20 08:57] LABS: Anion Gap 14.8 (5-19); Potassium 4.8 mmol/L (3.5-5.1)
--- NOTE | 2024-08-20 09:01 | W.PM.OPSUD ---
Surgery/Procedure H&P Update DATE OF PROCEDURE: August 20, 2024 DATE H&P PERFORMED: 07/30/24 H&P UPDATE INFORMATION: I have reviewed H&P completed within last 30 days, I have examined patient prior to procedure and No changes to prior documentation PREOP DIAGNOSIS: Staged PCI of LAD and RCA PRIMARY INDICATION FOR PROCEDURE: Staged PCI of LAD and RCA PLANNED PROCEDURE: Operation Date: 08/20/24 08:30 Proposed Procedures p Percutaneous Coronary Intervention - Staged PCI(Not Applicable) - Hira Cha M.D PATIENT REASSESSED PRIOR TO SEDATION, WITH NO CHANGE NOTED: Yes PHYSICAL EXAM: alert, oriented x 3, clear to auscultation bilaterally and regular rate & rhythm AIRWAY EVAL/ANESTHESIA PLAN: normal airway, ASA III, Local Anesthesia, Risks, benefits & alternatives of sedation and/or procedure discussed and Patient agrees to continue as planned ADDITIONAL INFORMATION: Moderate sedation
--- NOTE | 2024-08-20 12:01 | P.PCN_ITS ---
Procedure Note: Date of procedure: 08/20/24 Pre-procedure diagnosis: Severe proximal LAD and mid to distal RCA stenosis. Plan for staged PCI Post- procedure diagnosis: other (Status post revascularization of proximal LAD with 1 stent. Status post successful vascularization of mid to distal RCA with 1 stent after confirmation of severity of lesion with IFR.) Procedure: Proximal LAD has severe stenosis confirmed with IVUS on diagnostic cath s/p successful revascularization with 1 stent. Mid to distal RCA has moderate to severe stenosis confirmed with abnormal IFR to be significant. Status post accessible revascularization with 1 stent. Dual antiplatelet therapy with aspirin and Plavix. High intensity statin therapy Performing Provider: Hira Cha Estimated blood loss (mL): 10 Complications: None Condition: stable Disposition: floor Coding Level of Care Code Acute Code for Lennie Fwkaur
--- NOTE | 2024-08-20 12:22 | PC.NURSE ---
patient received from dental laboratory manager via bed. s/p lhc via right groin with sheath and pressure bag in place. No s/s of bleeding or hematoma formation observed. Instructed patient on site care and restrictions. Patient verbalized complete understanding. Meal provided.
[2024-08-20] MEDS: sodium chloride 0.9% 1,000 ML 100 ML IV (12:59)
[2024-08-20 14:57] LABS: Partial Thromboplastin Time 163.2 SECONDS (23.9-36.7)
--- NOTE | 2024-08-20 17:57 | PC.NURSE ---
Initiated sheath removal at 1724 per protocol. Hemostasis achieved immediately. Maintained pressure to site for 20min. No s/s of bleeding or hematoma formation observed. Dr Cha at bedside. VS wnl. Covered site with 2x2 and bio-occlusive. Instructed patient on site care and restrictions. Patient verbalized complete understanding. Will continue to monitor.
[2024-08-21 02:44] LABS: Basophils # 0.1 10^3/uL (0.0-0.1); Basophils % 0.8 %; Eosinophils # 0.3 10^3/uL (0.0-0.8); Eosinophils % 4.2 %; Hematocrit 34.4 % (37-53); Lymphocytes # 1.2 10^3/uL (0.8-4.8); Lymphocytes % 19.2 %; Mean Corpuscular HGB Conc 32.6 g/dL (30-55); Mean Corpuscular Hemoglobin 31.1 pg (27-33); Mean Corpuscular Volume 95.6 fl (82-101); Mean Platelet Volume 10.1 fL (7.4-10.4); Monocytes # 0.6 10^3/uL (0.2-0.9); Monocytes % 10.1 %; Neutrophils # 4.11 10^3/uL (1.8-7.7); Neutrophils % 65.5 %; Nucleated Red Blood Cells % 0 %; Platelet Count 179 10^3/cmm (157-399); Red Cell Distribution Width 14.6 % (12.1-15.1); White Blood Count 6.26 10^3/uL (3.29-11.43)
[2024-08-21 03:02] LABS: Anion Gap 13.9 (5-19); Blood Urea Nitrogen 23 mg/dL (8-23); Calcium 8.7 mg/dL (8.5-10.5); Carbon Dioxide 25 mmol/L (22-29); Chloride 106 mmol/L (98-107); Creatinine Clr Calc Pharmacy 55.0017; Glucose 98 mg/dL (65-115); Osmolality Calculated 294 mOsm/kg (285-295); Potassium 4.9 mmol/L (3.5-5.1); Sodium 140 mmol/L (136-145)
[2024-08-21 04:26] VITALS: BP 128/52; PULSE 86; RESP 20; TEMP 36.9; O2SAT 93
[2024-08-21 05:51] VITALS: PULSE 68
[2024-08-21 07:46] VITALS: BP 106/56; PULSE 69; RESP 17; TEMP 36.7; O2SAT 97
[2024-08-21] MEDS: clopidogrel 75 mg Tablet PO (07:47)
[2024-08-21] MEDS: levothyroxine 25 mcg Tablet PO (07:47)
[2024-08-21] MEDS: aspirin 81 mg EC Tablet PO (07:48)
--- NOTE | 2024-08-21 07:52 | PC.NURSE ---
Dressing to right groin remains c,d,i without s/s of bleeding or hematoma formation observed. Patient denies pain or swelling to site. Instructed patient on site care and restrictions. He verbalized complete understanding. Will continue to monitor.
--- NOTE | 2024-08-21 10:21 | P.DS_ITS ---
<Statement entered by Hira Cha M.D - 08/23/24 09:33> Patient was cared for in conjunction with an advanced practice practitioner.? I reviewed the chart and all pertinent data including imaging, telemetry, and laboratory results.? I discussed the patient in detail with the advanced practice practitioner.? Please see their note for complete discharge summary, testing results and agreed upon plan of care for the patient. Discharge Providers Date of Admission: 08/20/2024 Date of Discharge: August 21, 2024 Attending Provider at Admission: Hira Cha M.D Attending Provider at Discharge: Hira Cha M.D Primary Care Provider: Mauricio Parks Reason for Visit Reason for Visit: I25.10 Brief History: Patient underwent coronary angiogram in July and finding severe RCA and LAD stenosis, patient desired to have the procedure performed as an outpatient. After he was diuresed with Lasix procedure was scheduled. Hospital Course Hospital Course He was brought to the hospital yesterday for staged PCI of the proximal LAD ALONZO x 1 and mid RCA with ALONZO x 1. Overnight he has done well and feels ready for discharge today. No chest pain or shortness of breath this morning. No complications with right femoral cath site. Blood pressure and heart rate are well-controlled. Due to noted PVCs on telemetry we will add metoprolol succinate 25 mg daily. Continue aspirin and Plavix. No lifting greater than 5 pounds for the next 4 days. Follow-up in the cardiology clinic in the next 7 to 10 days. Physical Exam Const: COMMON NORMALS: no acute distress and patient oriented x3 GENERAL APPEARANCE: cooperative ORIENTATION/CONSCIOUSNESS: Yes awake, Yes oriented to person, Yes oriented to place and Yes oriented to time Chest: COMMONS NORMALS: normal inspection of the chest and normal palpation of entire chest wall CHEST: Yes Symmetrical chest wall rise Resp: COMMON NORMALS: normal respiratory effort, No retractions, No use of accessory muscles and clear to auscultation bilaterally AUSCULTATION: clear to auscultation bilaterally Cardio: COMMON NORMALS: regular rate, regular rhythm, S1 normal heart sound present, S2 normal heart sound present, No gallops present (Cardio), No clicks present (Cardio), No murmurs present (Cardio) and No rub (Cardio) RATE: regular rate RHYTHM: regular rhythm HEART SOUNDS: S1 normal heart sound present and S2 normal heart sound present PERIPHERAL PULSES: radial pulses present positive right 2+ and femoral pulses present positive right 2+ Neuro: COMMON NORMALS: patient oriented x3 and moves all extremities SENSORIUM/ORIENTATION: Yes oriented to person, Yes oriented to place and Yes oriented to time Skin: WOUNDS: Yes surgical site (no hematoma palpable) Details: no odor Discharge Data Studies Completed and Pending Pending at discharge Category Date Time Status SIMULATION SOFTWARE ENGINEER request for service Routine Exams 08/20/24 07:30 Taken Laboratory Results WBC 6.26 10^3/uL (3.29-11.43) 08/21/24 02:22 RBC 3.60 10^6/uL (3.85-5.65) L 08/21/24 02:22 Hgb 11.20 g/dL (11.27-16.99) L 08/21/24 02:22 Hct 34.4 % (37-53) L 08/21/24 02:22 MCV 95.6 fl (82-101) 08/21/24 02:22 MCH 31.1 pg (27-33) 08/21/24 02:22 MCHC 32.6 g/dL (30-55) 08/21/24 02:22 RDW 14.6 % (12.1-15.1) 08/21/24 02:22 Plt Count 179 10^3/cmm (157-399) 08/21/24 02:22 MPV 10.1 fL (7.4-10.4) 08/21/24 02:22 Neut % (Auto) 65.5 % 08/21/24 02:22 Lymph % (Auto) 19.2 % 08/21/24 02:22 [place] % (Auto) 10.1 % 08/21/24 02:22 Eos % (Auto) 4.2 % 08/21/24 02:22 Baso % (Auto) 0.8 % 08/21/24 02:22 Neut # (Auto) 4.11 10^3/uL (1.8-7.7) 08/21/24 02:22 Lymph # (Auto) 1.2 10^3/uL (0.8-4.8) 08/21/24 02:22 [place] # (Auto) 0.6 10^3/uL (0.2-0.9) 08/21/24 02:22 Eos # (Auto) 0.3 10^3/uL (0.0-0.8) 08/21/24 02:22 Baso # (Auto) 0.1 10^3/uL (0.0-0.1) 08/21/24 02:22 Nucleated RBC % (auto) 0 % 08/21/24 02:22 Nucleated RBCs # 0.0 /100WBC 08/21/24 02:22 APTT 37.0 SECONDS (23.9-36.7) H D 08/20/24 15:40 Sodium 140 mmol/L (136-145) 08/21/24 02:22 Potassium 4.9 mmol/L (3.5-5.1) 08/21/24 02:22 Chloride 106 mmol/L (98-107) 08/21/24 02:22 Carbon Dioxide 25 mmol/L (22-29) 08/21/24 02:22 Anion Gap 13.9 (5-19) 08/21/24 02:22 BUN 23 mg/dL (8-23) 08/21/24 02:22 Creatinine 1.0 mg/dL (0.7-1.2) 08/21/24 02:22 GFR Calculation Not Reportable 08/21/24 02:22 Glucose 98 mg/dL (65-115) 08/21/24 02:22 Calculated Osmolality 294 mOsm/kg (285-295) 08/21/24 02:22 Calcium 8.7 mg/dL (8.5-10.5) 08/21/24 02:22 Vitals Last Vital Signs Temp 98.0 F 08/21/24 07:46 Pulse 69 08/21/24 07:46 Resp 17 08/21/24 07:46 BP 106/56 08/21/24 07:46 Pulse Ox 97 08/21/24 07:46 O2 Del Method Room Air 08/21/24 07:46 Discharge Plan Discharge Patient Disposition: Home Prescriptions: New clopidogrel 75 mg Tablet 75 mg PO DAILY Qty: 90 3RF metoprolol succinate 25 mg tablet extended release 24 hr 25 mg PO DAILY Qty: 90 3RF Continued levothyroxine 25 mcg capsule 25 mcg PO DAILY finasteride [Proscar] 5 mg tablet 5 mg PO BEDTIME tamsulosin 0.4 mg capsule 0.8 mg PO BEDTIME omeprazole 20 mg capsule,delayed release(DR/EC) 20 mg PO DAILY aspirin 81 mg tablet,delayed release (DR/EC) 81 mg PO DAILY Qty: 90 3RF furosemide [Lasix] 40 mg tablet 40 mg PO DAILY Qty: 90 3RF losartan [Cozaar] 100 mg tablet 100 mg PO DAILY Qty: 90 3RF potassium chloride [K-Tab] 20 mEq tablet extended release 20 meq PO BID Qty: 180 3RF simvastatin 80 mg tablet 80 mg PO BEDTIME Discharge Orders: Discharge Order (Routine); Ordered 08/21/24 Ordered By: Trixie Samano Referrals: Alycia Ramon NP [Nurse Practitioner, Cardiology] - 08/29/24 1:30 pm Mauricio Parks [Primary Care Provider] [facility]erral [facility] Diet: Advance as tolerated Activity: Increase activity as tolerated Patient Instructions: Coronary Angioplasty (DC) Activity Restrictions/Additional Instructions: No lifting over 5 pounds for the next 4 days. Print Language: Indonesian Discharge Attestations Time Spent in Discharge Care*: less than 30 min Quality Metrics Clinical Quality Measures [ No reported AMI, CVA or VTE this stay] Coding Level of Care Code Acute Code for Chg Radha
--- NOTE | 2024-08-21 10:57 | PC.NURSE ---
Patient discharged to home. Instruction provided regarding follow up needs, new medications and site care with restrictions. Patient verbalized complete understanding. Dressing remains c,d,i without s/s of bleeding or hematoma formation observed. Patient denies pain to site. No distress observed. New Rx tranmitted to [facility]. Patient left ambulatory to private vehicle.
== END 2024-08-21 11:00 | disposition home or self-care (01) ==
LOC: CCL 07:18 → CSU 11:55
PROVIDERS: Nurse Practitioner Family; PCP Family Medicine; Visit Provider Internal Medicine
DX: I25.10 Atherosclerotic heart disease of native coronary artery without angina pectoris (principal); I10 Essential (primary) hypertension; E78.5 Hyperlipidemia, unspecified; Z87.891 Personal history of nicotine dependence; Z79.82 Long term (current) use of aspirin
CPT/HCPCS: 36415; 80048; 85025; 85347; 85730; 93454; 93571; 96374; 96376; 99152; 99153; C1725; C1769; C1874; C1887; C1894; C9600; C9601; J1644; J2250; J3010; J3490; J7030; J9999; Q0163; Q9967

== ENCOUNTER → 2024-08-29 13:24 | Outpatient (BNVA) | payer OTHER, SELFPAY | PROVIDERS: PCP Family Medicine; Visit Provider Nurse Practitioner Family | DX: I25.10 Atherosclerotic heart disease of native coronary artery without angina pectoris (principal); I50.23 Acute on chronic systolic (congestive) heart failure; Z09 Encounter for follow-up examination after completed treatment for conditions other than malignant neoplasm; R60.0 Localized edema; Z79.01 Long term (current) use of anticoagulants; Z79.82 Long term (current) use of aspirin; Z87.891 Personal history of nicotine dependence; Z95.5 Presence of coronary angioplasty implant and graft; R06.09 Other forms of dyspnea; I50.20 Unspecified systolic (congestive) heart failure | CPT/HCPCS: 36415; 80048; 83880; 85025; 99214 ==

== ENCOUNTER → 2024-09-30 07:52 | Outpatient (BNVA) | payer OTHER, SELFPAY | PROVIDERS: PCP Family Medicine; Visit Provider Nurse Practitioner Family | DX: I50.23 Acute on chronic systolic (congestive) heart failure (principal); I25.10 Atherosclerotic heart disease of native coronary artery without angina pectoris; Z79.02 Long term (current) use of antithrombotics/antiplatelets; Z79.82 Long term (current) use of aspirin; Z87.891 Personal history of nicotine dependence | CPT/HCPCS: 99214 ==

== ENCOUNTER 2024-10-28 08:15 | Outpatient (CLI) | payer OTHER, SELFPAY ==
--- NOTE | 2024-10-28 08:25 | USCV_ITS ---
Tapan Russo Age: 88 Gender: M : 1935 Exam Date: 10/28/2024 08:33 Ordering Phys: Mauricio Parks Technologist: BRADLY Exam Location: [facility] [place] Indication: AAA HISTORY: Diameter (cm) AP x Transverse x Length Velocity (cm/s) Waveform Prox Aorta: 1.35 x 1.48 x 58.20 Triphasic Mid Aorta: 1.56 x 1.69 x 101.70 Triphasic Distal Aorta: 4.24 x 3.41 x 5.24 73.60 Triphasic Right Iliac Prox: 1.01 x 1.02 x 95.10 Triphasic Left Iliac Prox: 1.09 x 1.00 x 98.60 Triphasic Stent Prox Landing x x Aneurysmal Sac Max x x Lt Lat Sac Dim Rt Lat Sac Dim Stent Dist Landing x x Right Iliac Stent x x Left Iliac Stent x x Right Renal Art Left Renal Art FINDINGS: Comparison:. 11/14/23 A fusiform abdominal aortic aneurysm is noted with a maximal diameter of 4.2 cm. Mild increase in size since the prior exam. Atherosclerotic plaque is noted in the abdominal aorta. There is evidence of atherosclerotic plaque no significan stenosis in the right common iliac artery. There is evidence of atherosclerotic plaque no significan stenosis in the left common iliac artery. CONCLUSIONS A fusiform abdominal aortic aneurysm is noted with a maximal diameter of 4.2 cm. Mld increase in diameter since the prior exam from 11/14/23. Dr. Carly Angel DO (Electronically Signed) Final Date: 28 October 2024 13:44 S
== END 2024-10-28 08:16 | disposition home or self-care (01) ==
LOC: RAD 08:16
PROVIDERS: PCP Family Medicine; Visit Provider Family Medicine
DX: I71.40 Abdominal aortic aneurysm, without rupture, unspecified (principal)
CPT/HCPCS: 76706

== ENCOUNTER 2024-11-21 11:53 | Outpatient (CLI) | payer OTHER, SELFPAY | END 2024-11-21 11:54 | disposition home or self-care (01) | LOC: RAD 11:54 | PROVIDERS: PCP Family Medicine; Visit Provider Nurse Practitioner Family | DX: R06.09 Other forms of dyspnea (principal); R60.0 Localized edema; Z79.02 Long term (current) use of antithrombotics/antiplatelets; Z79.82 Long term (current) use of aspirin; Z87.891 Personal history of nicotine dependence | CPT/HCPCS: 93306; 99214 ==

== ENCOUNTER 2025-02-16 07:58 | Observation (INO) | payer OTHER, MEDICARE, SELFPAY ==
[2025-02-16] VITALS (73 sets, daily range): BP systolic 98–165; BP diastolic 45–121; PULSE 51–105; RESP 12–29; TEMP 36.3–36.9; O2SAT 90–100; BMI 29.6; BMI 28.7
--- NOTE | 2025-02-16 08:00 | XRR_ITS ---
PROCEDURE INFORMATION: Exam: XR Chest Exam date and time: 02/16/2025 8:04 AM Age: 89 years old Clinical indication: Sternal or substernal pain; Additional info: Chest pain TECHNIQUE: Imaging protocol: Radiologic exam of the chest. Views: 1 view. COMPARISON: CR XR chest 1V portable [id number] 05/13/2024 12:45 PM FINDINGS: Lungs: There may be minimal atelectasis or scarring at the left lung base. Lungs are otherwise clear. No consolidated infiltrates are noted. Pleural spaces: Unremarkable. No pleural effusion. No pneumothorax. Heart/Mediastinum: The heart is slightly enlarged. There is calcified plaque involving the aorta. Bones/joints: Unremarkable. XR/XR chest 1V portable [id number] IMPRESSION: Suspect minimal atelectasis or scarring at the left lung base.
--- NOTE | 2025-02-16 08:03 | ECG_ITS ---
[facility]25-[facility]16 Pat Name: Tapan Russo Department: Room: Gender: Male Audograph Operator: : 1935 Requested By: Javier Moreno Order Number: [id number] Ciera MD: Claire Jaramillo M.D. Measurements Intervals [place] Rate: 51 P: 1 MI: 188 QRS: -51 QRSD: 116 T: 109 QT: 436 QTc: 403 Interpretive Statements SINUS BRADYCARDIA POSSIBLE LEFT ATRIAL ENLARGEMENT [-0.1mV P-WAVE IN V1/V2] LOW QRS VOLTAGE IN PRECORDIAL LEADS [QRS DEFLECTION < 1.0 mV IN CHEST LEADS] INFERIOR MYOCARDIAL INFARCTION , PROBABLY OLD [40+ ms Q WAVE AND/OR ST/T ABNORMALITY IN II/aVF] ANTEROSEPTAL MYOCARDIAL INFARCTION , OF INDETERMINATE AGE Compared to ECG 05/13/2024 11:49:07 Low QRS voltage now present.Sinus rhythm no longer present Ventricular premature complex(es) no longer present Left anterior fascicular block no longer present T-wave abnormality no longer present.Possible ischemia no longer present Myocardial infarct finding still present Electronically Signed On 02-16-2025 20:13:17 LATHE SPOTTER by Claire Jaramillo M.D. [id number]
--- OUTSIDE RECORDS SUMMARY | 2025-02-16 08:08 | XMS_ITS | Clinical Summary ---
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
--- OUTSIDE RECORDS SUMMARY | 2025-02-16 08:08 | XMS_ITS | Clinical Summary ---
Author Organization [facility] Address [address] [address] Phone Care Team Providers Care Flight Control Specialist Name Role Phone Unavailable Primary Care Provider Unavailabl e Allergies No known active allergies Medications No known medications Active Problems No known active problems Social History Tobacco Use Types Packs/Day Years Used Date Smoking Tobacco: Never Smokeless Tobacco: Never Sex and Gender Information Value Date Recorded Sex Assigned at Not on file Legal Sex Male 1:18 PM CDT Gender Identity Not on file Sexual Orientation Not on file Last Filed Vital Signs Vital Sign Reading Time Taken Comments Blood Pressure 149/65 07/27/2021 3:15 PM CDT Pulse 79 07/27/2021 3:15 PM CDT Temperature 37 C (98.6 F) 07/27/2021 3:15 PM CDT Respiratory Rate 18 07/27/2021 3:15 PM CDT Oxygen Saturation 96% 07/27/2021 3:15 PM CDT Inhaled Oxygen Concentration - - Weight 81.6 kg (180 lb) 07/27/2021 3:15 PM CDT Height 172.7 cm (5' 8 ) 07/27/2021 3:15 PM CDT Body Mass Index 27.37 07/27/2021 3:15 PM CDT Plan of Treatment Health Maintenance Due Date Last Done Comments Lipid Panel 1935 MMR Vaccines (1 of 1 - Stand enrique series) 1938 DTaP,Tdap,and Td Vaccines (1 - Tdap) 1944 Varicella Vaccines (1 of 2 - 13+ 2-dose series) 1950 Depression Screening 12/01/1955 Social Drivers of Health (SDoH) 12/01/1955 Pneumococcal Vaccine: 50+ Ye ars (1 of 1 - PCV) 12/01/1987 Zoster Vaccines (1 of 2) 12/01/1987 Complete Fall Risk Assessment 2002 RSV Vaccines (1 - 1-dose 75+ series) 2012 COVID-19 Vaccine (2023-2 5 season) 2024 Influenza Vaccine (#1) 2024 HIB Vaccines Aged Out No longer eligi ble based on patient's age to complete this topic HPV Vaccines Aged Out No longer eligi ble based on patient's age to complete this topic Hepatitis A Vaccines Aged Out No long er eligible based on patient's age to complete this topic Hepatitis B Vaccines Aged Out No long er eligible based on patient's age to complete this topic IPV Vaccines Aged Out No longer eligi ble based on patient's age to complete this topic Meningococcal B Vaccine Aged Out No l onger eligible based on patient's age to complete this topic Meningococcal Vaccine Aged Out No weston mary eligible based on patient's age to complete this topic Pneumococcal Vaccine Aged Out No long er eligible based on patient's age to complete this topic Rotavirus Vaccines Aged Out No longer eligible based on patient's age to complete this topic Insurance [address] [address] [employer]
--- OUTSIDE RECORDS SUMMARY | 2025-02-16 08:08 | XMS_ITS | Encounter Summary ---
Author Organization [facility] Address [address] [facility] [place] [address] Care Team Providers Care Spouter Name Role Phone Hitesh Vega MD Primary Care Provider [phone] Encounter Details Date Type Department Care Team (Late st Contact Info) Description 02/17/[address] 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
[2025-02-16 08:16] LABS: Hematocrit 37.5 % (37-53); Hemoglobin 12.30 g/dL (11.27-16.99); Mean Corpuscular HGB Conc 32.8 g/dL (30-55); Mean Corpuscular Hemoglobin 32.7 pg (27-33); Mean Corpuscular Volume 99.7 fl (82-101); Nucleated Red Blood Cells % 0 %; Platelet Count 188 10^3/cmm (157-399); Red Blood Count 3.76 10^6/uL (3.85-5.65); White Blood Count 8.65 10^3/uL (3.29-11.43)
--- NOTE | 2025-02-16 08:22 | W.ED.CHESTPA ---
HPI - Chest Pain General: Chief Complaint: Chest Pain Stated Complaint: chest pain Time Seen by Provider: 02/16/25 08:00 History of Present Illness: 89-year-old male presents to the emergency room with complaints of chest discomfort across the anterior chest woke him up from sleep. Patient has a known history of coronary disease and had to evaluations in the [facility] this year. Most recent visit in August 20, 2024. He had an LAD and RCA lesion. These were both stented. Previous Deportation Examiner visit on July 17 there was some complications with equipment and they were unable to treat so he was brought back to the [facility]ation [facility]er at a later date. He has not had any chest pain since that time has not been having any pain with activity. He is taking all of his medications including his clopidogrel. He has not noticed anything that aggravates or relieves his symptoms. Associated symptoms: Deny abdominal pain, dyspnea or fever(s) Related Data Home Medications ?Medication ?Instructions ?Recorded ?Confirmed finasteride 5 mg tablet (Proscar) 5 mg PO BEDTIME 04/28/22 02/16/25 omeprazole 20 mg capsule,delayed 20 mg PO DAILY 04/28/22 02/16/25 release tamsulosin 0.4 mg capsule 0.8 mg PO BEDTIME 04/28/22 02/16/25 levothyroxine 125 mcg tablet 125 mcg PO DAILY 02/16/25 02/16/25 potassium chloride 20 mEq 20 meq PO BID 02/16/25 02/16/25 tablet,extended release Previous Rx's ?Medication ?Instructions ?Recorded aspirin 81 mg tablet,delayed 81 mg PO DAILY #90 tabs 08/01/24 release clopidogrel 75 mg tablet 75 mg PO DAILY #90 tabs 11/21/24 furosemide 40 mg tablet (Lasix) 40 mg PO DAILY #90 tabs 11/21/24 metoprolol succinate 25 mg 12.5 mg (1/2 x 25 mg) PO DAILY #90 11/21/24 tablet,extended release 24 hr tabs sacubitril 49 mg-valsartan 51 mg 1 tab PO BID #180 tabs 11/21/24 tablet (Entresto) simvastatin 80 mg tablet 80 mg PO BEDTIME #90 tabs 11/21/24 Allergies Allergy/AdvReac Type Severity Reaction Status Date / Time No Known Allergies Allergy Verified 02/16/25 08:08 Review of Systems Const: Denies: fever(s) or chills Card: Reports: chest pain Resp: Denies: dyspnea GI: Denies: abdominal pain : Denies: dysuria, urinary frequency or urinary urgency Musc: Denies: neck pain or back pain Skin/Breast: Denies: rash PFSH ED PFSH: Medical History Hypertension Hypothyroidism Systolic heart failure Coronary artery disease Surgical History Coronary angioplasty status Social History Smoking and tobacco/nicotine status: former use of tobacco/nicotine (quit 1968) Physical Exam Const: GENERAL APPEARANCE: cooperative ORIENTATION/CONSCIOUSNESS: Yes awake, Yes oriented to person, Yes oriented to place and Yes oriented to time HENMT: COMMON NORMALS: normocephalic, atraumatic and hearing grossly normal bilaterally HEAD & SCALP: normocephalic and atraumatic Resp: COMMON NORMALS: normal respiratory effort, No retractions, No use of accessory muscles and clear to auscultation bilaterally AUSCULTATION: clear to auscultation bilaterally Cardio: COMMON NORMALS: regular rate, regular rhythm and No murmurs present (Cardio) RATE: regular rate RHYTHM: regular rhythm GI: COMMON NORMALS: Soft to palpation and No hepatosplenomegaly present AUSCULTATION: Yes normoactive bowel sounds PALPATION: Yes Soft to palpation, No Tenderness to palpation present (GI), No Guarding due to palpation present (GI) and Yes No hepatosplenomegaly present Extremity: COMMON NORMALS: normal to inspection, capillary refill normal, no clubbing, cyanosis or edema, no calf tenderness and no pedal edema Neuro: SENSORIUM/ORIENTATION: Yes oriented to person, Yes oriented to place and Yes oriented to time Skin: COMMON NORMALS: no rashes or lesions noted GENERAL SKIN EXAM: no rashes or lesions noted Course Vital Signs: Vital signs: Vital Signs Temperature 97.8 F 02/16/25 14:13 Pulse Rate 64 02/16/25 13:56 Respiratory Rate 24 H 02/16/25 12:40 Blood Pressure 117/57 02/16/25 12:40 Pulse Oximetry 100 02/16/25 14:25 Oxygen Delivery Me thod Room Air 02/16/25 14:25 MDM - Chest Pain Medical Decision Making Patient with known history of heart disease presents emergency room with chest pain that began while at rest. Evaluate for acute coronary syndrome unstable angina pneumonia. Cardiac enzymes negative EKG does not show acute change if patient continues to have pain. Based on his history and his heart score placement observation consult cardiology. Medical Records I reviewed the patient's medical records. Lab Data I reviewed the patient's lab results. 02/16/25 08:10 02/16/25 09:05 Radiology Impressions Chest X-Ray 02/16/25 08:00 IMPRESSION: Suspect minimal atelectasis or scarring at the left lung base. Laboratory Results WBC 8.65 10^3/uL (3.29-11.43) 02/16/25 08:10 RBC 3.76 10^6/uL (3.85-5.65) L 02/16/25 08:10 Hgb 12.30 g/dL (11.27-16.99) 02/16/25 08:10 Hct 37.5 % (37-53) 02/16/25 08:10 MCV 99.7 fl (82-101) 02/16/25 08:10 MCH 32.7 pg (27-33) 02/16/25 08:10 MCHC 32.8 g/dL (30-55) 02/16/25 08:10 RDW 13.4 % (12.1-15.1) 02/16/25 08:10 Plt Count 188 10^3/cmm (157-399) 02/16/25 08:10 MPV 10.4 fL (7.4-10.4) 02/16/25 08:10 Neut % (Auto) 82.4 % 02/16/25 08:10 Lymph % (Auto) 11.3 % 02/16/25 08:10 [place] % (Auto) 4.9 % 02/16/25 08:10 Eos % (Auto) 0.9 % 02/16/25 08:10 Baso % (Auto) 0.3 % 02/16/25 08:10 Neut # (Auto) 7.12 10^3/uL (1.8-7.7) 02/16/25 08:10 Lymph # (Auto) 1.0 10^3/uL (0.8-4.8) 02/16/25 08:10 [place] # (Auto) 0.4 10^3/uL (0.2-0.9) 02/16/25 08:10 Eos # (Auto) 0.1 10^3/uL (0.0-0.8) 02/16/25 08:10 Baso # (Auto) 0.0 10^3/uL (0.0-0.1) 02/16/25 08:10 Nucleated RBC % (auto) 0 % 02/16/25 08:10 Nucleated RBCs # 0.0 /100WBC 02/16/25 08:10 Sodium 139 mmol/L (136-145) 02/16/25 09:05 Potassium 4.7 mmol/L (3.5-5.1) 02/16/25 09:05 Chloride 105 mmol/L (98-107) 02/16/25 09:05 Carbon Dioxide 23 mmol/L (22-29) 02/16/25 09:05 Anion Gap 15.7 (5-19) 02/16/25 09:05 BUN 26 mg/dL (8-23) H 02/16/25 09:05 Creatinine 1.1 mg/dL (0.7-1.2) 02/16/25 09:05 GFR Calculation Not Reportable 02/16/25 09:05 Glucose 136 mg/dL (65-115) H 02/16/25 09:05 Estimat Average Glucose 105 02/16/25 08:10 Hemoglobin A1c 5.3 % (4.0-6.0) 02/16/25 08:10 Calculated Osmolality 295 mOsm/kg (285-295) 02/16/25 09:05 Calcium 8.8 mg/dL (8.5-10.5) 02/16/25 09:05 Iron 55 ug/dL (59-158) L 02/16/25 10:06 TIBC 254 mcg/dl 02/16/25 10:06 % Saturation 21.6 % (20-50) 02/16/25 10:06 Unsat Iron Binding 199 ug/dL (112-347) 02/16/25 10:06 Total Bilirubin 0.3 mg/dL (0.15-1.2) 02/16/25 09:05 AST 14 U/L (0-40) 02/16/25 09:05 ALT 11 U/L (0-41) 02/16/25 09:05 Alkaline Phosphatase 57 U/L (40-130) 02/16/25 09:05 Troponin T Baseline 13 ng/L (0-15) 02/16/25 08:10 Troponin T 120 Minute 14.93 ng/L (0-15) 02/16/25 10:06 Delta Troponin T 1.93 ABS# (0-10) 02/16/25 10:06 Total Protein 6.6 g/dL (6.6-8.7) 02/16/25 09:05 Albumin 4.3 g/dL (3.5-5.2) 02/16/25 09:05 Globulin 2.3 g/dL (1.3-4.6) 02/16/25 09:05 Vitamin B12 393 pg/mL (232-1245) 02/16/25 10:06 TSH 3.24 uIU/mL (0.27-4.20) 02/16/25 10:06 All radiology interpretation(s) finalized by discharge EKG Data EKG 1: I personally reviewed and interpreted this EKG as follows: Interpretation: EKG February 16, 2025 8:03 AM sinus bradycardia rate of 51 WI interval 188 QTc [address] No acute ST changes noted. Compared with previous EKG 05/13/2024 no acute changes at this time. EKG 2: Prior EKG tracings: available for review Interpretation: EKG 02/16/2025 1452 first-degree AV block with PVCs no acute ST changes. Rate of 71 WI interval 225 QTc 420. Compared to EKG done earlier same day no acute changes are noted Discharge Plan Discharge Patient Disposition: Admitted As Inpatient Admit Provider: Daniel Hudson Clinical Impression: Chest pain, Systolic heart failure, Hypertension, Dyspnea on exertion, Coronary artery disease Condition: Stable Coding Level of Care Code ED Radio Electronics Technician for g Fwd Heart Score HEART Score Components History: Moderately Suspicious EKG: Non-specific Changes Age: 65 or more yrs Risk Factors: >/=3 Risk Factors Troponin: Baseline Trop <16 ng/L HEART Score RESULT HEART Score: 6
[2025-02-16 08:41] LABS: Troponin(5th) Baseline 13 ng/L (0-15)
[2025-02-16 09:34] LABS: Alanine Aminotransferase 11 U/L (0-41); Albumin Level 4.3 g/dL (3.5-5.2); Alkaline Phosphatase 57 U/L (40-130); Anion Gap 15.7 (5-19); Aspartate Amino Transferase 14 U/L (0-40); Blood Urea Nitrogen 26 mg/dL (8-23); Calcium 8.8 mg/dL (8.5-10.5); Carbon Dioxide 23 mmol/L (22-29); Chloride 105 mmol/L (98-107); Creatinine Clr Calc Pharmacy 51.1399; Globulin 2.3 g/dL (1.3-4.6); Glucose 136 mg/dL (65-115); Osmolality Calculated 295 mOsm/kg (285-295); Potassium 4.7 mmol/L (3.5-5.1); Sodium 139 mmol/L (136-145); Total Protein 6.6 g/dL (6.6-8.7)
--- NOTE | 2025-02-16 10:00 | ECG_ITS ---
[facility] Test Date: 2025-02-16 Pat Name: Tapan Russo Department: Room: Gender: Male Paint Crew Supervisor: : 1935 Requested By: Javier Moreno Order Number: [id number] Ciera MD: Claire Jaramillo M.D. Measurements Intervals [place] Rate: 53 P: 17 MN: 203 QRS: -56 QRSD: 109 T: 87 QT: 435 QTc: 409 Interpretive Statements SINUS BRADYCARDIA LOW QRS VOLTAGE IN PRECORDIAL LEADS [QRS DEFLECTION < 1.0 mV IN CHEST LEADS] INFERIOR MYOCARDIAL INFARCTION , PROBABLY OLD [40+ ms Q WAVE AND/OR ST/T ABNORMALITY IN II/aVF] ANTEROSEPTAL MYOCARDIAL INFARCTION , OF INDETERMINATE AGE [40+ ms Q WAVE IN V1-V4] MODERATE T-WAVE ABNORMALITY, CONSIDER LATERAL ISCHEMIA [-0.1+ mV T-WAVE IN I/aVL/V5/V6] Compared to ECG 02/16/2025 08:03:38 T-wave abnormality now present Possible ischemia now present Myocardial infarct finding still present Electronically Signed On 02-16-2025 20:18:32 CHIEF SUBSTATION OPERATOR by Claire Jaramillo M.D. [email or web address]
[2025-02-16 10:31] LABS: Troponin 5 2HR 14.93 ng/L (0-15); Troponin 5 2HR Delta 1.93 ABS# (0-10)
[2025-02-16] MEDS: nitroglycerin 1 gm/inch oint Pkt 0.5 INCH TOPICAL (11:12)
[2025-02-16] MEDS: heparin 5,000 unit/mL INJ 1 mL IVP (11:15)
[2025-02-16] MEDS: heparin drip 25,000 UNIT/500 ML PREMIX 25 UNIT IV (11:20)
--- NOTE | 2025-02-16 11:41 | PC.NURSE ---
this RN and charge nurse Carly attempted to placed order for PTT to be redrawn at 1720, unable to place order.
--- NOTE | 2025-02-16 12:30 | PM.HP ---
Providers/Chief Complaint Admitting Physician: Daniel Hudson MD Primary Care Provider: Mauricio Parks Chief Complaint: chest pain History of Present Illness Tapan Russo is a 89 year old male with past medical history of CAD post PCI to proximal LAD ALONZO x 1, mid RCA with ALONZO x 1, systolic and diastolic heart failure presents to the ER today because of retrosternal heaviness with a bandlike chest pain in the lower chest which started today morning and woke him up from his sleep associate with nausea. Patient denies any difficulty breathing. States he has not had any chest pain or difficulty breathing on exertion at rest for last 1 to 2 weeks. Has been compliant with his medication. Denies any dizziness. Pain was relieved after he received Nitropatch in the ER. Review of Systems General: Reports: 10 or more systems reviewed and unremarkable except in HPI and below Const: Denies: fever(s), chills, body aches, change in appetite, change in weight, malaise, night sweats, diaphoresis, change in sleep pattern, daytime sleepiness or snoring Eyes: Denies: change in vision, blurry vision, photophobia, eye discomfort or eye discharge ENMT: Denies: throat pain, enlarged tonsils, hoarseness, mouth pain, oral sores, dry mouth, tinnitus, nasal congestion or post nasal drip Card: Denies: chest pain, palpitations, irregular heart rhythm, edema, swelling of feet/ankles, lightheadedness, syncope, pre-syncope, dyspnea on exertion, orthopnea, leg pain with exertion or acrocyanosis Resp: Denies: dyspnea, productive cough, non-productive cough, wheezing, stridor, pain on inspiration, change in phlegm color, hemoptysis or chest congestion GI: Denies: abdominal pain, nausea, vomiting, hematemesis, coffee ground emesis, dysphagia, heartburn, diarrhea, constipation, bloating, GI cramping, change in bowel habits, pain on defecation, hematochezia or melena : Denies: flank pain, difficulty urinating, dysuria, urinary frequency, urinary urgency, urinary hesitancy, urinary dribbling, difficulty starting urination, change in urine stream, nocturia or hematuria Musc: Denies: neck pain, back pain, extremity pain, joint pain, joint swelling, joint redness, joint stiffness or limited range of motion Neuro: Denies: headache(s), numbness in extremities, weakness in extremities, sensory changes, lack of coordination, difficulty walking, frequent falls, dizziness, vertigo, confusion, Slurred speech present, difficulty communicating thoughts or seizure-like activity Psych: Denies: anxiety, depression, mood swings, panic attacks, hopelessness or irritability Endo: Denies: polyuria, polydipsia, tired all the time, cold intolerance, excessive sweating, flushing or heat intolerance Omid/Lymph: Denies: easy bruising or easy bleeding All/Imm: Denies: tongue swelling, facial swelling or acute wheezing Medications/Allergies Home Medications ?Medication ?Instructions ?Recorded ?Confirmed ?Last Taken ?Type finasteride 5 mg tablet (Proscar) 5 mg PO BEDTIME 04/28/22 02/16/25 02/15/25 History omeprazole 20 mg capsule,delayed 20 mg PO DAILY 04/28/22 02/16/25 02/15/25 History release tamsulosin 0.4 mg capsule 0.8 mg PO BEDTIME 04/28/22 02/16/25 02/15/25 History aspirin 81 mg tablet,delayed 81 mg PO DAILY #90 tabs 08/01/24 02/16/25 02/15/25 Rx release clopidogrel 75 mg tablet 75 mg PO DAILY #90 tabs 11/21/24 02/16/25 02/15/25 Rx furosemide 40 mg tablet (Lasix) 40 mg PO DAILY #90 tabs 11/21/24 02/16/25 02/15/25 Rx metoprolol succinate 25 mg 12.5 mg (1/2 x 25 mg) PO DAILY #90 11/21/24 02/16/25 02/15/25 Rx tablet,extended release 24 hr tabs sacubitril 49 mg-valsartan 51 mg 1 tab PO BID #180 tabs 11/21/24 02/16/25 02/15/25 Rx tablet (Entresto) simvastatin 80 mg tablet 80 mg PO BEDTIME #90 tabs 11/21/24 02/16/25 02/15/25 Rx levothyroxine 125 mcg tablet 125 mcg PO DAILY 02/16/25 02/16/25 02/15/25 07:00 History potassium chloride 20 mEq 20 meq PO BID 1102/16/25 02/15/25 History tablet,extended release Allergies Allergy/AdvReac Type Severity Reaction Status Date / Time No Known Allergies Allergy Verified 02/16/25 08:08 PFSH Acute PFSH: Medical History (Updated 02/16/25 @ 12:32 by Daniel Hudson MD) Hypertension Hypothyroidism Systolic heart failure Coronary artery disease Surgical History (Updated 02/16/25 @ 12:32 by Daniel Hudson MD) Coronary angioplasty status Social History Smoking and tobacco/nicotine status: former use of tobacco/nicotine (quit 1968) Vitals/I&O/Wt Last Vital Signs Temp 97.3 F L 02/16/25 08:00 Pulse 61 02/16/25 12:01 Resp 17 02/16/25 11:30 BP 135/57 02/16/25 12:01 Pulse Ox 99 02/16/25 12:01 O2 Del Method Room Air 02/16/25 08:00 02/15/25 02/16/25 02/16/25 22:59 06:59 14:59 Intake Total 0 / 0 Balance 0 / 0 Weight last 48 hrs Weight 88.451 kg Physical Exam Narrative: General: No acute distress, AO x3 HEENT: PERRLA, pupils bilaterally equal and reactive Chest: Normal vesicular breath sounds, no added sounds, equal good air entry bilaterally CVS: S1-S2 regular, no murmurs, no tachycardia, no gallops, no rubs Abdomen: Soft, nontender, no organomegaly, bowel sounds present Neuro: No focal deficits, no facial deformity, AO x3, power 5/5 in all limbs Data 02/16/25 08:10 02/16/25 09:05 A&P Assessment and plan 1. Chest pain: With history of CAD and multivessel PCI in 09/01. Cycle troponin. Cardiology consulted from the ER. Possible need for stress test versus repeat cardiac angiogram. Limited echocardiogram. Continue with aspirin, Plavix, statin, beta-tesfaye. Heparin drip for now. N.p.o. after midnight. Continue Nitropatch for now. 2. Coronary artery disease: 3. Systolic heart failure: 4. Hypertension: Goal blood pressure less than 140/90 mmHg. Continued home dose of Entresto and beta-tesfaye for now. Plan: Clear liquid diet. N.p.o. after midnight Heparin drip will be sufficient for DVT prophylaxis Protonix OPD prophylaxis PDMP PDMP Reviewed: Not Reviewed Attestations Medical Necessity Statement*: Admit under observation further evaluation and management of chest pain in setting of CAD post PCI Diagnoses Chest pain R07.9 Coronary artery disease I25.10 Systolic heart failure I50.20 Hypertension I10
[2025-02-16] MEDS: FUROsemide 10 mg/mL SDV 2mL 20 MG IVP (12:47)
[2025-02-16] MEDS: pantoprazole 40 mg SDV IVP (12:47)
--- NOTE | 2025-02-16 12:50 | USCV_ITS ---
Rafeala Tapan Age: 89 Gender: M : 1935 Exam Date: 02/16/2025 17:06 Ordering Phys: Daniel Hudson MD Technologist: Ishmael Loaiza Exam Location: [facility] – [place] Indication: chest pain BP: 125 / 51 HR: Rhythm: Sinus Technical Quality: Adequate MEASUREMENTS (Male / Female) Normal Values 2D ECHO LV Diastolic Diameter PLAX 5.9 cm 4.2 - 5.9 / 3.9 - 5.3 cm IVS Diastolic Thickness 0.9 cm 0.6 - 1.0 / 0.6 - 0.9 cm IVS Systolic Thickness 1.4 cm LVPW Diastolic Thickness 0.9 cm 0.6 - 1.0 / 0.6 - 0.9 cm LVPW Systolic Thickness 1.2 cm LVOT Diameter 2.1 cm LV Ejection Fraction 2D Teich 53.1 % LV Ejection Fraction MOD 4C 51.1 % LV Ejection Fraction MOD 2C 48.2 % LV Ejection Fraction 2C AL 48.3 % LA Diameter 4.0 cm RA Systolic Volume 4C AL 34.3 ml RA Systolic Volume 4C MOD 35.2 ml LA Sys Volume AL 57.3 cm cubed LA Sys Volume Index AL 27.9 cm cubed/m squared Aorta at Sinotubular Diameter 2.5 cm IVC Diameter 1.9 cm M-MODE LA Ao Ratio MM 1.2 AV Cusp Separation MM 1.4 cm FINDINGS Left Ventricle Severe hypokinesia of the basal inferolateral segment. Mild diffuse hypokinesia of the lateral wall segment.mildly increased left ventricular cavity size. LV ejection fraction around 48% Right Ventricle Normal right ventricular size and systolic function. Right Atrium Normal right atrial size. Left Atrium Mildly increased left atrial size. IA Septum Normal interatrial septum. Mitral Valve Mild mitral annular calcification. Aortic Valve Thickened aortic valve. Tricuspid Valve Structurally normal tricuspid valve. Pulmonic Valve Pulmonic valve not well visualized. Pericardium No pericardial effusion. Aorta Normal aortic annulus size. IVC Inferior vena cava not visualized. CONCLUSIONS Mildly dilated left ventricle with an ejection fraction of 48%. Wall motion abnormalities as mentioned above. Mildly increased left atrial size. Mild mitral annular calcification. Thickened aortic valve. There is no pericardial effusion. There are no intracardiac masses. Compared to the previous study from 11/21/2024, there may not be a significant change Dr Claire Jaramillo MD FACC (Electronically Signed) Final Date: 16 February 2025 19:48 S
[2025-02-16 13:15] LABS: Estmated Average Glucose 105; Hemoglobin A1C 5.3 % (4.0-6.0)
[2025-02-16 13:29] LABS: Iron 55 ug/dL (59-158); Thyroid Stimulating Hormone 3.24 uIU/mL (0.27-4.20); Total Iron Binding Capacity 254 mcg/dl; Unsaturated Iron Binding 199 ug/dL (112-347); Vitamin B12 393 pg/mL (232-1245)
--- NOTE | 2025-02-16 14:00 | ECG_ITS ---
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 Measurements Intervals [place] Rate: 71 P: 25 HI: 225 QRS: -64 QRSD: 110 T: 97 QT: 386 QTc: 420 Interpretive Statements SINUS RHYTHM WITH FIRST DEGREE AV BLOCK WITH OCCASIONAL VENTRICULAR PREMATURE COMPLEXES.POSSIBLE LEFT ATRIAL ENLARGEMENT [-0.1mV P-WAVE IN V1/V2] LOW QRS VOLTAGE IN PRECORDIAL LEADS [QRS DEFLECTION < 1.0 mV IN CHEST LEADS] LEFT ANTERIOR FASCICULAR BLOCK [QRS AXIS <= -45, QR IN I, RS IN II] INFERIOR MYOCARDIAL INFARCTION , PROBABLY OLD [40+ ms Q WAVE AND/OR ST/T ABNORMALITY IN II/aVF].ANTEROSEPTAL MYOCARDIAL INFARCTION , OF INDETERMINATE AGE [40+ ms Q WAVE IN V1-V4] Compared to ECG 02/16/2025 10:16:29 Ventricular premature complex(es) now present.First degree AV block now present Left anterior fascicular block now present.Sinus bradycardia no longer present T-wave abnormality no longer present.Possible ischemia no longer present Myocardial infarct finding still present Electronically Signed On 02-16-2025 20:17:22 DRILL RUNNER by Claire Jaramillo M.D. [email or web address]
[2025-02-16 14:24] LABS: Troponin 5 6HR 15.32 ng/L (0-15); Troponin 5 6HR Delta 2.32 ng/L (0-12)
[2025-02-16] MEDS: SACUBITRIL/VALSARTAN 49-51 TABLET 1 EACH PO (16:56)
--- NOTE | 2025-02-16 17:21 | PM.CONSULT ---
Providers/Reason For Consult Consulting Physician/Specialty*: RICHARD Jaramillo MD/cardiology Reason for Consult*: Patient was atherosclerotic heart diseas, multiple PCI, presenting with symptoms suggestive of unstable angina Requesting Physician: Dr. Simeon Attending Physician: Daniel Hudson MD Primary Care Provider: Mauricio Parks History of Present Illness History of Present Illness Tapan Russo is a 89 year old male with a history of atherosclerotic heart disease, status post PCI of the proximal LAD and mid RCA in August of this year, is admitted to the hospital through the emergency room, where he presented with lower epigastric/upper abdominal pain. Cardiology consult is requested for further cardiac evaluation recommendations. This patient apparently has been in his baseline state of health up until early this morning around 3:30 PM he woke up with the a tight feeling in the lower substernal/epigastric area which was going around like a band. He had some shortness of breath. The intensity of the pain was moderate. It lasted for several hours. So he came to the emergency room with these complaints. He did not have any nausea vomiting. No fever or chills. No cough. No other associated symptoms. In July of this year, he was admitted to the hospital with features of congestive heart failure. Subsequent echocardiogram results revealed a high-grade lesion in the proximal LAD and mid RCA. He underwent PCI of these lesions in August. According to the patient, he been doing okay since then. He was having bilateral leg swelling which also got improved slowly. He has a history of hypertension, dyslipidemia, infrarenal aortic aneurysm, LV systolic dysfunction with the most recent echocardiogram in November revealing ejection fraction of 45 to 50% Review of Systems Narrative: CONSTITUTIONAL: No fever or chills. EYES: No blurring of vision or other visual disturbances lately. ENT: No hoarseness of voice, auditory disturbances or sore throat. CARDIOVASCULAR: As mentioned above. RESPIRATORY: Has baseline shortness of breath with activities GASTROINTESTINAL: No hematemesis or melena. GENITOURINARY: No dysuria or hematuria. INTEGUMENTARY: No skin rashes or history of skin cancer. NEURO: No transient ischemic attacks or amaurosis. PSYCHIATRIC: No history of psychosis or major depression. HEMATOLOGIC: No bleeding disorders or significant anemia. ENDOCRINE: No history of polyuria or polydipsia. MUSCULOSKELETAL: Has been having extremity swelling which is improving ALLERGY/IMMUNOLOGY: As mentioned above. Medications/Allergies Home Medications ?Medication ?Instructions ?Recorded ?Confirmed ?Last Taken ?Type finasteride 5 mg tablet (Proscar) 5 mg PO BEDTIME 04/28/22 02/16/25 02/15/25 History omeprazole 20 mg capsule,delayed 20 mg PO DAILY 04/28/22 02/16/25 02/15/25 History release tamsulosin 0.4 mg capsule 0.8 mg PO BEDTIME 04/28/22 02/16/25 02/15/25 History aspirin 81 mg tablet,delayed 81 mg PO DAILY #90 tabs 08/01/24 02/16/25 02/15/25 Rx release clopidogrel 75 mg tablet 75 mg PO DAILY #90 tabs 11/21/24 02/16/25 02/15/25 Rx furosemide 40 mg tablet (Lasix) 40 mg PO DAILY #90 tabs 11/21/24 02/16/25 02/15/25 Rx metoprolol succinate 25 mg 12.5 mg (1/2 x 25 mg) PO DAILY #90 11/21/24 02/16/25 02/15/25 Rx tablet,extended release 24 hr tabs sacubitril 49 mg-valsartan 51 mg 1 tab PO BID #180 tabs 11/21/24 02/16/25 02/15/25 Rx tablet (Entresto) simvastatin 80 mg tablet 80 mg PO BEDTIME #90 tabs 11/21/24 02/16/25 02/15/25 Rx levothyroxine 125 mcg tablet 125 mcg PO DAILY 02/16/25 02/16/25 02/15/25 07:00 History potassium chloride 20 mEq 20 meq PO BID 02/16/25 02/16/25 02/15/25 History tablet,extended release Allergies Allergy/AdvReac Type Severity Reaction Status Date / Time No Known Allergies Allergy Verified 02/16/25 08:08 Current Medications Generic Name Dose Route Start Last Admin Trade Name Ayala PRN Reason Stop Dose Admin Docusate Sodium 100 mg 02/16/25 17:00 02/16/25 16:56 Docusate Sodium 100 Mg Capsule PO 100 mg BID PRINCE Administration Heparin Sodium/Sodium Chloride 25,000 unit in 500 mls @ 0 mls/hr 02/16/25 10:45 02/16/25 11:20 Heparin Drip IV 14.13 unit/kg/hr CONT PRINCE 25 mls/hr Protocol Administration Per Protocol Pantoprazole Sodium 40 mg 02/16/25 12:30 02/16/25 12:47 Pantoprazole 40 Mg Sdv IVP 40 mg Q24H PRINCE Administration Sacubitril/Valsartan 1 each 02/16/25 17:00 02/16/25 16:56 Sacubitril/Valsartan 49-51 Tablet PO 1 each BID PRINCE Administration PFSH Acute PFSH: Medical History Hypertension Hypothyroidism Systolic heart failure Coronary artery disease Surgical History Coronary angioplasty status Social History Smoking and tobacco/nicotine status: former use of tobacco/nicotine (quit 1968) Vitals/I&O/Wt Last Vital Signs Temp 98.3 F 02/16/25 16:55 Pulse 80 02/16/25 16:55 Resp 26 H 02/16/25 16:55 BP 125/51 02/16/25 16:55 Pulse Ox 93 02/16/25 16:55 O2 Del Method Room Air 02/16/25 16:55 02/16/25 02/16/25 02/16/25 06:59 14:59 22:59 Intake Total 150 / 150 Output Total 600 / 600 Balance -450 / -450 Weight last 48 hrs Weight 189 lb Weight 195 lb Physical Exam Narrative: GENERAL: The patient is alert and oriented times three. Not in any acute distress. HEENT: No significant pallor, icterus or lymphadenopathy.Oral cavity: There are no mucous membrane lesions. NECK: Trachea appears to be central. No masses noted. No JVD or thyromegaly appreciated. RESPIRATORY: Chest is symmetrical. No intercostals muscle retraction or any accessory muscle activation. There is no chest wall tenderness. Breath sounds are heard bilaterally. No rales or rhonchi heard. No evidence of any consolidation. BREASTS: Deferred. HEART: The heart sounds are normal. No S3 or S4. No significant murmurs. No pericardial rub ABDOMEN: No vessel pulsations or distention. No tenderness. Somewhat distended no organomegaly appreciated. Bowel sounds are normally heard. : Deferred. RECTAL: Deferred. LYMPHATIC: No lymphadenopathy noted in the neck. EXTREMITIES: No edema or cyanosis. No clubbing. MUSCULOSKELETAL: No acute joint deformities or swelling SKIN: There are no significant rashes or ecchymosis NEUROPSYCHIATRIC: The patient is alert and oriented x3. Appears to be in a good mood. No tremors or rigidity noted. Data 02/17/25 06:41 02/17/25 06:41 Other Labs: Laboratory Last Values WBC 8.65 10^3/uL (3.29-11.43) 02/16/25 08:10 RBC 3.76 10^6/uL (3.85-5.65) L 02/16/25 08:10 Hgb 12.30 g/dL (11.27-16.99) 02/16/25 08:10 Hct 37.5 % (37-53) 02/16/25 08:10 MCV 99.7 fl (82-101) 02/16/25 08:10 MCH 32.7 pg (27-33) 02/16/25 08:10 MCHC 32.8 g/dL (30-55) 02/16/25 08:10 RDW 13.4 % (12.1-15.1) 02/16/25 08:10 Plt Count 188 10^3/cmm (157-399) 02/16/25 08:10 MPV 10.4 fL (7.4-10.4) 02/16/25 08:10 Neut % (Auto) 82.4 % 02/16/25 08:10 Lymph % (Auto) 11.3 % 02/16/25 08:10 [place] % (Auto) 4.9 % 02/16/25 08:10 Eos % (Auto) 0.9 % 02/16/25 08:10 Baso % (Auto) 0.3 % 02/16/25 08:10 Neut # (Auto) 7.12 10^3/uL (1.8-7.7) 02/16/25 08:10 Lymph # (Auto) 1.0 10^3/uL (0.8-4.8) 02/16/25 08:10 [place] # (Auto) 0.4 10^3/uL (0.2-0.9) 02/16/25 08:10 Eos # (Auto) 0.1 10^3/uL (0.0-0.8) 02/16/25 08:10 Baso # (Auto) 0.0 10^3/uL (0.0-0.1) 02/16/25 08:10 Nucleated RBC % (auto) 0 % 02/16/25 08:10 Nucleated RBCs # 0.0 /100WBC 02/16/25 08:10 Sodium 139 mmol/L (136-145) 02/16/25 09:05 Potassium 4.7 mmol/L (3.5-5.1) 02/16/25 09:05 Chloride 105 mmol/L (98-107) 02/16/25 09:05 Carbon Dioxide 23 mmol/L (22-29) 02/16/25 09:05 Anion Gap 15.7 (5-19) 02/16/25 09:05 BUN 26 mg/dL (8-23) H 02/16/25 09:05 Creatinine 1.1 mg/dL (0.7-1.2) 02/16/25 09:05 GFR Calculation Not Reportable 02/16/25 09:05 Glucose 136 mg/dL (65-115) H 02/16/25 09:05 Estimat Average Glucose 105 02/16/25 08:10 Hemoglobin A1c 5.3 % (4.0-6.0) 02/16/25 08:10 Calculated Osmolality 295 mOsm/kg (285-295) 02/16/25 09:05 Calcium 8.8 mg/dL (8.5-10.5) 02/16/25 09:05 Iron 55 ug/dL (59-158) L 02/16/25 10:06 TIBC 254 mcg/dl 02/16/25 10:06 % Saturation 21.6 % (20-50) 02/16/25 10:06 Unsat Iron Binding 199 ug/dL (112-347) 02/16/25 10:06 Total Bilirubin 0.3 mg/dL (0.15-1.2) 02/16/25 09:05 AST 14 U/L (0-40) 02/16/25 09:05 ALT 11 U/L (0-41) 02/16/25 09:05 Alkaline Phosphatase 57 U/L (40-130) 02/16/25 09:05 Troponin T Baseline 13 ng/L (0-15) 02/16/25 08:10 Troponin T 120 Minute 14.93 ng/L (0-15) 02/16/25 10:06 Delta Troponin T 1.93 ABS# (0-10) 02/16/25 10:06 Troponin T Hi Sens 6Hr 15.32 ng/L (0-15) H 02/16/25 14:00 Troponin T Hi Sens 6Hr Delta 2.32 ng/L (0-12) 02/16/25 14:00 Total Protein 6.6 g/dL (6.6-8.7) 02/16/25 09:05 Albumin 4.3 g/dL (3.5-5.2) 02/16/25 09:05 Globulin 2.3 g/dL (1.3-4.6) 02/16/25 09:05 Vitamin B12 393 pg/mL (232-1245) 02/16/25 10:06 TSH 3.24 uIU/mL (0.27-4.20) 02/16/25 10:06 Other data: EKG from today revealed Normal sinus rhythm with frequent PVCs. Poor R wave progression suggesting previous anterior wall WA. Features of old inferior wall WA. Left axis deviation. Possible left atrial enlargement. Nonspecific ST-T changes. Compared to the previous EKG from 05/15/2024, there may not be a significant change Cardiac catheterization in August of this year Diagnostic Cath Status: Elective Diagnostic Findings * INDICATION: Patient is scheduled to have staged PCI of mid to distal RCA and proximal LAD. * Left Main has mild ostial disease. Was confirmed with IVUS during the diagnostic procedure.. * Circumflex has no significant disease. * Proximal Left Anterior Descending: obstructive 70% stenosis, RADHA: 3 flow. This was confirmed to be significant with IVUS on initial angiogram.. * Mid Right Coronary Artery to Distal Right Coronary Artery: obstructive 70% stenosis, RADHA: 3 flow. We performed IFR of RCA which was abnormal at 0.82.. * Coronary angiography shows right dominance. A&P Assessment and plan 1. Atherosclerotic heart disease of tribe coronary artery with other forms of angina pectoris: The patient chest pain/epigastric pain is somewhat atypical. The EKG is unremarkable. No evidence of myocardial injury so far. A GI etiology cannot be excluded. Hemodynamically he seems to be stable. Currently asymptomatic. 2. Abdominal aortic aneurysm (AAA) 35 to 39 mm in diameter: The most recent examination in October revealed aneurysm size of 4.24 x 3.2, based on the ultrasound. Possibility of an aneurysm expansion or dissection is a consideration 3. Benign hypertension: Currently normotensive. May continue on the current medications 4. Acute on chronic systolic heart failure: The heart failure seems to be compensated. 5. Dyslipidemia: Patient is known to have dyslipidemia. Advised to continue on the current medications. Will have the follow-up evaluation as scheduled. Patient understands the importance of dietary compliance Plan: To further evaluate the aneurysm of the abdomen, a CTA would be appropriate. Patient's kidney function is fair. No history for any dye allergy. Based on the CT findings, further recommendations will be made. If there is no evidence of an aneurysm expansion, we may consider doing a Myocardial perfusion imaging tomorrow to further evaluate the symptoms. Based on the results of the above and the patient's clinical progress, further recommendations will be made Thank you for the opportunity to evaluate this patient and make these recommendations PDMP PDMP Reviewed: Not Reviewed Coding Level of Care Code 63335 Diagnoses Atherosclerotic heart disease of tribe coronary artery with other forms of angina pectoris I25.118 Abdominal aortic aneurysm (AAA) 35 to 39 mm in diameter I71.40 Benign hypertension I10 Acute on chronic systolic heart failure I50.23 Heart failure chronicity: acute on chronic Dyslipidemia E78.5
[2025-02-16] MEDS: thiamine 100 mg/mL 2mL SDV IM (17:26)
[2025-02-16 17:52] LABS: Partial Thromboplastin Time 126.3 SECONDS (23.9-36.7)
--- NOTE | 2025-02-16 19:14 | ECG_ITS ---
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 Interpretive Statements Lung unchanged pre/post procedure; Intraprocedure shortess of breath; Intraprocedure shortess of breath; Symptoms resoled by discharge; Symptoms resoled by discharge PROCEDURE: At the baseline, the EKG revealed normal sinus rhythm with a poor R wave progression. Possible old anteroseptal NE. Possible old inferior wall NE. Nonspecific IVCD. Diffuse nonspecific ST-T changes. Occasional PVCs. The baseline heart was 74 bpm with a blood pressue of 118/55 mm of Hg Lexiscan was infused over a period of 20 seconds. A total of 0.4 milligrams of Lexiscan was infused. The stress phase was continued for a total of 5 minutes. Heart rate at the end of the stress phase was 87 bpm with a blood pressure 90/48 mm of Hg. The EKG at the peak infusion revealed no significant changes. Sestamibi was injected 20 seconds after the Lexiscan infusion. Heart rate at the end of the recovery phase was 88 bpm with a blood pressure of 98/48 mm of Hg. CONCLUSION: 1. No significant EKG changes with the LexiScan infusion 2. No LexiScan induced chest pain or cardiac arrhythmia 3. Normal blood pressure and heart rate response 4. Sestamibi/sestamibi perfusion scan pending; see separate report. Electronically Signed On 02-17-2025 18:26:44 INFORMATION RESOURCES DIRECTOR by Claire Jaramillo M.D. [email or web address]
--- NOTE | 2025-02-16 19:27 | CTR_ITS ---
PROCEDURE INFORMATION: Exam: CTA Abdomen and Pelvis With Contrast Exam date and time: 02/16/2025 10:20 PM Age: 89 years old Clinical indication: Abdominal pain; Generalized; Diffuse abd pain. History of infrarenal aneurysm. ; Additional info: HX aortic aneurysm TECHNIQUE: Imaging protocol: Computed tomographic angiography of the abdomen and pelvis with contrast. Exam focused on the arteries. 3D rendering (Not supervised by radiologist): MIP and/or 3D reconstructed images were created by the technologist. Radiation optimization: All CT scans at this facility use at least one of these dose optimization techniques: automated exposure control; mA and/or kV adjustment per patient size (includes targeted exams where dose is matched to clinical indication); or iterative reconstruction. Contrast material: OMNI 350; Contrast volume: 100 ml; Contrast route: INTRAVENOUS (IV); COMPARISON: CR (CHEST, ) 02/16/2025 8:04 AM RADIATION DOSE METRICS: Total DLP (mGy-cm): 1560.7 FINDINGS: Aorta: Atherosclerotic changes of the aorta. Infrarenal abdominal aortic aneurysm, measures 4.0 x 4.0 x 7.4 cm. Celiac and mesenteric arteries: No occlusion or significant stenosis. Renal arteries: No occlusion or significant stenosis. Right iliac arteries: No occlusion or significant stenosis. Left iliac arteries: No occlusion or significant stenosis. Liver: Cystic lesion in the left hepatic lobe measures 2.7 x 2.4 cm. Gallbladder and biliary ducts: Minimal gallbladder sludge, which extends into the cystic duct. Mildly dilated common bile duct. If there is concern for acute cholecystitis, recommend gallbladder ultrasound. Pancreas: Unremarkable. No mass. No ductal dilation. Spleen: Unremarkable. No splenomegaly. Adrenal glands: Unremarkable. No mass. Kidneys and ureters: Unremarkable. No solid mass. No hydronephrosis. Stomach and bowel: Diverticulosis, without acute diverticulitis. No small bowel obstruction. No free air. Appendix: No evidence of appendicitis. Intraperitoneal space: See Stomach and bowel finding. Lymph nodes: Unremarkable. No enlarged lymph nodes. Urinary bladder: Unremarkable. No mass. Reproductive: Enlarged prostate gland measures 5.3 cm. Bones/joints: Degenerative changes of the spine. Grade 1 anterolisthesis of L4 on L5 measures 7 mm. Soft tissues: Fat containing left inguinal hernia. Other findings: Additional cystic lesion in segment 6 measures 1.[address]/CT angio abdomen pelvis 71251 IMPRESSION: 1. Minimal gallbladder sludge, which extends into the cystic duct. Mildly dilated common bile duct. If there is concern for acute cholecystitis, recommend gallbladder ultrasound . 2. Known, infrarenal abdominal aortic aneurysm, measures 4.0 x 4.0 x 7.4 cm. 3. Fat containing left inguinal hernia. . 4. Diverticulosis, without acute diverticulitis. No small bowel obstruction. No free air.
[2025-02-16 19:49] LABS: NT Pro B Type Natriuretic Pept 4504 pg/mL (0-450)
[2025-02-16] MEDS: iohexol 350 mg/mL 500 mL Btl (per mL) IV (22:21)
--- NOTE | 2025-02-16 22:36 | PC.NURSE ---
Dr. Jaramillo in to see pt early in shift. Later called back and requested CT of abdomen due to hx of AAA.
[2025-02-17] VITALS (16 sets, daily range): BP systolic 98–107; BP diastolic 48–55; PULSE 64–88; RESP 14–27; O2SAT 91–96
[2025-02-17 00:36] LABS: Partial Thromboplastin Time 105.9 SECONDS (23.9-36.7)
[2025-02-17] MEDS: morphine 4 mg/mL SDV 1 mL 2 MG IVP (00:50)
[2025-02-17] MEDS: metoprolol succinate ER (24 HR) 25 mg Tablet 12.5 MG PO (05:26)
[2025-02-17] MEDS: multivitamin therapeutic Tablet 1 TAB PO (05:26)
[2025-02-17] MEDS: SACUBITRIL/VALSARTAN 49-51 TABLET 1 EACH PO (05:26)
[2025-02-17 06:52] LABS: Hematocrit 33.7 % (37-53); Hemoglobin 11.20 g/dL (11.27-16.99); Mean Corpuscular HGB Conc 33.2 g/dL (30-55); Mean Corpuscular Hemoglobin 32.8 pg (27-33); Mean Corpuscular Volume 98.8 fl (82-101); Nucleated Red Blood Cells % 0 %; Platelet Count 172 10^3/cmm (157-399); Red Blood Count 3.41 10^6/uL (3.85-5.65); White Blood Count 10.09 10^3/uL (3.29-11.43)
[2025-02-17 07:09] LABS: Partial Thromboplastin Time 55.3 SECONDS (23.9-36.7)
[2025-02-17 07:13] LABS: Alanine Aminotransferase 9 U/L (0-41); Albumin Level 4.0 g/dL (3.5-5.2); Alkaline Phosphatase 47 U/L (40-130); Anion Gap 12.7 (5-19); Aspartate Amino Transferase 13 U/L (0-40); Blood Urea Nitrogen 18 mg/dL (8-23); Calcium 8.5 mg/dL (8.5-10.5); Carbon Dioxide 26 mmol/L (22-29); Chloride 99 mmol/L (98-107); Creatinine Clr Calc Pharmacy 50.4838; Globulin 2.5 g/dL (1.3-4.6); Glucose 126 mg/dL (65-115); Magnesium 2.0 mg/dL (1.7-2.3); Osmolality Calculated 281 mOsm/kg (285-295); Potassium 3.7 mmol/L (3.5-5.1); Sodium 134 mmol/L (136-145); Total Protein 6.5 g/dL (6.6-8.7)
[2025-02-17 07:24] LABS: Cholesterol 176 mg/dL (0-200); HDL Cholesterol 80 mg/dL (60-100); Triglycerides 60 mg/dL (0-150)
--- NOTE | 2025-02-17 08:19 | PC.NURSE ---
To Nuc Med
--- NOTE | 2025-02-17 08:32 | US_ITS ---
WS: [id number] RIGHT UPPER QUADRANT ULTRASOUND HISTORY: upper epigastric pain, gallbladder noted on CT scan. COMPARISON: CT 02/16/2025 Liver: 16.1 cm in length. Normal size liver. Cyst in the LEFT lobe measures 2.3 x 2.4 x 2.4 cm. Hyperechoic focus which is probably in the RIGHT lobe measures 1.3 x 1.0 x 1.4 cm. Consistent with a hemangioma. No intrahepatic duct dilatation. Portal Vein: Normal hepatopetal flow with monophasic waveform. Gallbladder: Mildly hydropic gallbladder. No stones or sludge. No wall thickening or pericholecystic fluid. CBD: 0.5 cm Pancreas: Completely obscured. Right kidney: 11.5 cm in length. Normal size and echogenicity. No hydronephrosis or mass. Aorta and IVC: Unremarkable abdominal aorta and IVC. No ascites. US/US gall bladder [id number] IMPRESSION: 1. Negative gallbladder for stones or gallbladder wall thickening. 2. Mildly hydropic gallbladder. 3. Normal common bile duct. 4. Normal size liver with a LEFT lobe cyst and RIGHT lobe hemangioma.
--- NOTE | 2025-02-17 09:37 | PM.PN ---
Subjective Subjective: Patient remaining stable with no significant symptoms. Had the CTA of the abdomen and pelvis yesterday. The aneurysm was found to be measuring 4.0 x 4.0 cm in diameter. No significant change from the previous study. He had a Myocardial perfusion imaging today. Was found to have no significant ischemia. Medications: Medication Review Details: Current Medications Acetaminophen (Acetaminophen 325 Mg Tablet) 650 mg PO Q6H PRN PRN Reason: Mild/Mod Pain Or Temp >/= 101 Aminophylline (Aminophylline 25 Mg/Ml Sdv 20 Ml) 25 mg IVP Q2M PRN PRN Reason: see dose instructions Stop: 02/18/25 06:26 Aspirin (Aspirin 81 Mg Ec Tablet) 81 mg PO DAILY [facility] Last Admin: 02/17/25 05:25 Dose: 81 mg Atorvastatin Calcium (Atorvastatin 40 Mg Tablet) 40 mg PO BEDTIME [facility] Last Admin: 02/16/25 20:30 Dose: 40 mg Clopidogrel Bisulfate (Clopidogrel 75 Mg Tablet) 75 mg PO DAILY [facility] Last Admin: 02/17/25 05:26 Dose: 75 mg Docusate Sodium (Docusate Sodium 100 Mg Capsule) 100 mg PO BID [facility] Last Admin: 02/17/25 05:27 Dose: Not Given Finasteride (Finasteride 5 Mg Tablet) 5 mg PO BEDTIME [facility] Last Admin: 02/16/25 20:30 Dose: 5 mg Folic Acid (Folic Acid 1 Mg Tablet) 1 mg PO DAILY RPINCE Last Admin: 02/17/25 05:26 Dose: 1 mg Furosemide (Furosemide 40 Mg Tablet) 40 mg PO DAILY [facility] Last Admin: 02/17/25 05:25 Dose: 40 mg Heparin Sodium (Porcine) (Heparin 5,000 Unit/Ml Inj 1 Ml) 0 unit IVP PRN PRN; Protocol PRN Reason: Heparin Weight Based Protocol -Subsequent Bolus Heparin Sodium/Sodium Chloride (Heparin Drip) 25,000 unit in 500 mls @ 0 mls/hr IV CONT PRINCE; Protocol Last Titration: 02/17/25 07:11 Dose: 8.48 unit/kg/hr, 15 mls/hr Lactulose (Lactulose Oral Liq 20 Gm/30 Ml Udc) 10 gm PO DAILY PRN; Protocol PRN Reason: Constipation (see protocol) Levothyroxine Sodium (Levothyroxine 125 Mcg Tablet) 125 mcg PO DAILY [facility] Last Admin: 02/17/25 05:26 Dose: 125 mcg Lorazepam (Lorazepam 2 Mg Tablet) 2 mg PO Q4H PRN; Protocol PRN Reason: WITHDRAWAL Lorazepam (Lorazepam 2 Mg/Ml Inj 1 Ml) 2 mg IM Q4H PRN; Protocol PRN Reason: ALCOHOL WITHDRAWAL Lorazepam (Lorazepam 2 Mg/Ml Inj 1 Ml) 2 mg IVP PRN PRN; Protocol PRN Reason: WITHDRAWAL Magnesium Hydroxide (Magnesium Hydroxide 30 Ml Udc) 30 ml PO DAILY PRN; Protocol PRN Reason: Constipation (see protocol) Metoprolol Succinate (Metoprolol Succinate Er (24 Hr) 25 Mg Tablet) 12.5 mg PO DAILY [facility] Last Admin: 02/17/25 05:26 Dose: 12.5 mg Morphine Sulfate (Morphine 4 Mg/Ml Sdv 1 Ml) 2 mg IVP Q4H PRN PRN Reason: SEVERE PAIN Last Admin: 02/17/25 00:50 Dose: 2 mg Multivitamins Therapeutic (Multivitamin Therapeutic Tablet) 1 tab PO DAILY [facility] Last Admin: 02/17/25 05:26 Dose: 1 tab Nitroglycerin (Nitroglycerin 0.4 Mg Sublingual Tablet) 0.4 mg SUBLINGUAL Q5M PRN PRN Reason: CHEST PAIN Stop: 02/18/25 06:26 Ondansetron HCl (Ondansetron 2 Mg/Ml Sdv 2 Ml) 4 mg IVP Q6H PRN PRN Reason: vomiting, or N/V if npo Ondansetron HCl (Ondansetron 2 Mg/Ml Sdv 2 Ml) 4 mg IVP Q2M PRN PRN Reason: NAUSEA Pantoprazole Sodium (Pantoprazole 40 Mg Sdv) 40 mg IVP Q24H [facility] Last Admin: 02/16/25 12:47 Dose: 40 mg Sacubitril/Valsartan (Sacubitril/Valsartan 49-51 Tablet) 1 each PO BID [facility] Last Admin: 02/17/25 05:26 Dose: 1 each Tamsulosin HCl (Tamsulosin 0.4 Mg Capsule) 0.8 mg PO BEDTIME [facility] Last Admin: 02/16/25 20:30 Dose: 0.8 mg Thiamine Mononitrate (Thiamine 100 Mg Tablet) 100 mg PO DAILY [facility] Last Admin: 02/17/25 05:26 Dose: 100 mg Vitals/I&O/Wt Last Vital Signs Temp 98.4 F 02/16/25 23:00 Pulse 87 02/17/25 08:56 Resp 18 02/17/25 08:00 BP 98/48 02/17/25 08:56 Pulse Ox 96 02/17/25 08:00 O2 Del Method Room Air 02/17/25 08:00 02/16/25 02/17/25 02/17/25 22:59 06:59 14:59 Intake Total 1297.083 / 1447.083 252 / 1699.083 978.5 / 978.5 Output Total 400 / 1000 300 / 300 Balance 897.083 / 447.083 252 / 699.083 678.5 / 678.5 Weight last 48 hrs Weight 189 lb 9.561 oz Weight 189 lb 9.561 oz Weight 189 lb Weight 195 lb Physical Exam Narrative: GENERAL: The patient is alert and oriented times three. Not in any acute distress. HEENT: No significant pallor, icterus or lymphadenopathy.Oral cavity: There are no mucous membrane lesions. NECK: Trachea appears to be central. No masses noted. No JVD or thyromegaly appreciated. RESPIRATORY: Chest is symmetrical. No intercostals muscle retraction or any accessory muscle activation. There is no chest wall tenderness. Breath sounds are heard bilaterally. No rales or rhonchi heard. No evidence of any consolidation. BREASTS: Deferred. HEART: The heart sounds are normal. No S3 or S4. No significant murmurs. No pericardial rub ABDOMEN: No vessel pulsations or distention. No tenderness. Somewhat distended no organomegaly appreciated. Bowel sounds are normally heard. : Deferred. RECTAL: Deferred. LYMPHATIC: No lymphadenopathy noted in the neck. EXTREMITIES: No edema or cyanosis. No clubbing. MUSCULOSKELETAL: No acute joint deformities or swelling SKIN: There are no significant rashes or ecchymosis NEUROPSYCHIATRIC: The patient is alert and oriented x3. Appears to be in a good mood. No tremors or rigidity noted. Data 02/17/25 06:41 02/17/25 06:41 Other Labs: Laboratory Last Values WBC 10.09 10^3/uL (3.29-11.43) 02/17/25 06:41 RBC 3.41 10^6/uL (3.85-5.65) L 02/17/25 06:41 Hgb 11.20 g/dL (11.27-16.99) L 02/17/25 06:41 Hct 33.7 % (37-53) L 02/17/25 06:41 MCV 98.8 fl (82-101) 02/17/25 06:41 MCH 32.8 pg (27-33) 02/17/25 06:41 MCHC 33.2 g/dL (30-55) 02/17/25 06:41 RDW 13.2 % (12.1-15.1) 02/17/25 06:41 Plt Count 172 10^3/cmm (157-399) 02/17/25 06:41 MPV 10.1 fL (7.4-10.4) 02/17/25 06:41 Neut % (Auto) 87.0 % 02/17/25 06:41 Lymph % (Auto) 6.0 % 02/17/25 06:41 [place] % (Auto) 6.2 % 02/17/25 06:41 Eos % (Auto) 0.1 % 02/17/25 06:41 Baso % (Auto) 0.2 % 02/17/25 06:41 Neut # (Auto) 8.77 10^3/uL (1.8-7.7) H 02/17/25 06:41 Lymph # (Auto) 0.6 10^3/uL (0.8-4.8) L 02/17/25 06:41 [place] # (Auto) 0.6 10^3/uL (0.2-0.9) 02/17/25 06:41 Eos # (Auto) 0.0 10^3/uL (0.0-0.8) 02/17/25 06:41 Baso # (Auto) 0.0 10^3/uL (0.0-0.1) 02/17/25 06:41 Nucleated RBC % (auto) 0 % 02/17/25 06:41 Nucleated RBCs # 0.0 /100WBC 02/17/25 06:41 APTT 55.3 SECONDS (23.9-36.7) H 02/17/25 06:41 Sodium 134 mmol/L (136-145) L 02/17/25 06:41 Potassium 3.7 mmol/L (3.5-5.1) 02/17/25 06:41 Chloride 99 mmol/L (98-107) 02/17/25 06:41 Carbon Dioxide 26 mmol/L (22-29) 02/17/25 06:41 Anion Gap 12.7 (5-19) 02/17/25 06:41 BUN 18 mg/dL (8-23) 02/17/25 06:41 Creatinine 1.1 mg/dL (0.7-1.2) 02/17/25 06:41 GFR Calculation Not Reportable 02/17/25 06:41 Glucose 126 mg/dL (65-115) H 02/17/25 06:41 Estimat Average Glucose 105 02/16/25 08:10 Hemoglobin A1c 5.3 % (4.0-6.0) 02/16/25 08:10 Calculated Osmolality 281 mOsm/kg (285-295) L 02/17/25 06:41 Calcium 8.5 mg/dL (8.5-10.5) 02/17/25 06:41 Phosphorus 2.5 mg/dL (2.5-4.5) 02/17/25 06:41 Magnesium 2.0 mg/dL (1.7-2.3) 02/17/25 06:41 Iron 55 ug/dL (59-158) L 02/16/25 10:06 TIBC 254 mcg/dl 02/16/25 10:06 % Saturation 21.6 % (20-50) 02/16/25 10:06 Unsat Iron Binding 199 ug/dL (112-347) 02/16/25 10:06 Total Bilirubin 0.8 mg/dL (0.15-1.2) 02/17/25 06:41 AST 13 U/L (0-40) 02/17/25 06:41 ALT 9 U/L (0-41) 02/17/25 06:41 Alkaline Phosphatase 47 U/L (40-130) 02/17/25 06:41 Troponin T Baseline 13 ng/L (0-15) 02/16/25 08:10 Troponin T 120 Minute 14.93 ng/L (0-15) 02/16/25 10:06 Delta Troponin T 1.93 ABS# (0-10) 02/16/25 10:06 Troponin T Hi Sens 6Hr 15.32 ng/L (0-15) H 02/16/25 14:00 Troponin T Hi Sens 6Hr Delta 2.32 ng/L (0-12) 02/16/25 14:00 NT-Pro-B Natriuret Pep 4504 pg/mL (0-450) H 02/16/25 14:00 Total Protein 6.5 g/dL (6.6-8.7) L 02/17/25 06:41 Albumin 4.0 g/dL (3.5-5.2) 02/17/25 06:41 Globulin 2.5 g/dL (1.3-4.6) 02/17/25 06:41 Triglycerides 60 mg/dL (0-150) 02/17/25 06:41 Cholesterol 176 mg/dL (0-200) 02/17/25 06:41 LDL Cholesterol, Calc 84 mg/dL (50-129) 02/17/25 06:41 HDL Cholesterol 80 mg/dL (60-100) 02/17/25 06:41 LDL/HDL Ratio 1.05 RATIO (0.00-3.22) 02/17/25 06:41 Cholesterol/HDL Ratio 2.20 mg/dL (1.0-5.00) 02/17/25 06:41 Vitamin B12 393 pg/mL (232-1245) 02/16/25 10:06 Folate > 20.0 ng/mL (4.5-32.2) 02/17/25 06:41 TSH 3.24 uIU/mL (0.27-4.20) 02/16/25 10:06 Other data: Myocardial perfusion imaging from today 1. Myocardial perfusion imaging revealing small area of persistent decreased tracer uptake involving the apical inferior and apical lateral segments suggesting myocardial scarring versus attenuation artifact 2. Slightly elevated LV ejection fraction of 46%. 3. LV wall motion analysis revealing mild diffuse hypokinesia of the left ventricle 4. Moderately dilated LV cavity, with an end-systolic volume 111 mL No significant coronary ischemia, based on the above findings CT of the abdomen from last night 1. Minimal gallbladder sludge, which extends into the cystic duct. Mildly dilated common bile duct. If there is concern for acute cholecystitis, recommend gallbladder ultrasound . 2. Known, infrarenal abdominal aortic aneurysm, measures 4.0 x 4.0 x 7.4 cm. 3. Fat containing left inguinal hernia. . 4. Diverticulosis, without acute diverticulitis. No small bowel obstruction. No free air. A&P Assessment and plan 1. Atherosclerotic heart disease of [place] coronary artery with other forms of angina pectoris: The patient chest pain/epigastric pain is somewhat atypical. The EKG is unremarkable. No evidence of myocardial injury so far. A GI etiology cannot be excluded. Hemodynamically he seems to be stable. Currently asymptomatic. The Myocardial perfusion imaging from today is unremarkable. 2. Abdominal aortic aneurysm (AAA) 35 to 39 mm in diameter: CT of the abdomen/pelvis from last night was reviewed. Aneurysm was measuring 4.0 x 4.0 cm. No evidence of dissection. This was discussed with the patient. 3. Benign hypertension: Currently normotensive. May continue on the current medications 4. Acute on chronic systolic heart failure: Patient was little short of breath this morning. He was given a dose of Lasix. 5. Dyslipidemia: Patient is known to have dyslipidemia. Advised to continue on the current medications. Will have the follow-up evaluation as scheduled. Patient understands the importance of dietary compliance Plan: The results of Myocardial perfusion imaging and the CT of the abdomen were discussed with the patient in detail. Since the patient has no evidence of ischemia based on the perfusion scan and also since he has no chest pain, it would be appropriate to hold off on any further cardiac investigations at this point. He may have a GI issue that needs to be looked into in more detail. Since the cardiac status is stable I may sign off at this point. PDMP PDMP Reviewed: Not Reviewed Attestations Medical Necessity Statement*: Disposition as per the primary Coding Level of Care Code 06843 Diagnoses Atherosclerotic heart disease of [place] coronary artery with other forms of angina pectoris I25.118 Abdominal aortic aneurysm (AAA) 35 to 39 mm in diameter I71.40 Benign hypertension I10 Acute on chronic systolic heart failure I50.23 Heart failure chronicity: acute on chronic Dyslipidemia E78.5
--- NOTE | 2025-02-17 10:03 | PC.NURSE ---
back from nuc med
[2025-02-17] MEDS: lidocaine 2% viscous 15 ML, aluminum-mag hydrox-simethicon 30 ML, sucralfate oral liq 1 GM PO (10:49)
--- NOTE | 2025-02-17 11:48 | PM.DCS ---
Discharge Providers Date of Admission: 02/16/25 10:48 Date of Discharge: February 17, 2025 Attending Provider at Admission: Daniel Hudson MD Attending Provider at Discharge: Daniel Hudson MD Primary Care Provider: Mauricio Parks Diagnoses at Discharge Discharge Diagnosis 1. Atherosclerotic heart disease of [place] coronary artery with other forms of angina pectoris: 2. Abdominal aortic aneurysm (AAA) 35 to 39 mm in diameter: 3. Benign hypertension: 4. Acute on chronic systolic heart failure: 5. Dyslipidemia: Reason for Visit Reason for Visit: chest pain Hospital Course Hospital Course Tapan Russo is a 89 year old male with past medical history of CAD post PCI to proximal LAD ALONZO x 1, mid RCA with ALONZO x 1, systolic and diastolic heart failure presents to the ER today because of retrosternal heaviness with a bandlike chest pain in the lower chest which started today morning and woke him up from his sleep associate with nausea. Patient denies any difficulty breathing. States he has not had any chest pain or difficulty breathing on exertion at rest for last 1 to 2 weeks. Has been compliant with his medication. Denies any dizziness. Pain was relieved after he received Nitropatch in the ER. Patient was admitted for further evaluation with concerns for chest pain to rule out ACS. Cardiology was consulted. Her troponin cycled remained negative. Echocardiogram was done which showed an EF of 48% with stable regional wall motion normality. He underwent cardiac stress test on 02/17 which was concerning for myocardial scarring with a EF of 46%. There was a concern for gallbladder stones on CT abdomen pelvis which was done to further monitor his abdominal aortic aneurysm. Gallbladder stones and gallbladder wall thickening/cholecystitis was ruled out on liver ultrasound. His symptoms are most likely in setting of significant gastritis. He has been discharged on oral Protonix 40 mg twice daily for 2 weeks followed by 40 mg daily. He is to follow-up with his PCP as an outpatient in 1 week. He should continue taking his Lasix and other medications as before. Physical Exam Narrative: General: No acute distress, AO x3 HEENT: PERRLA, pupils bilaterally equal and reactive Chest: Normal vesicular breath sounds, no added sounds, equal good air entry bilaterally CVS: S1-S2 regular, no murmurs, no tachycardia, no gallops, no rubs Abdomen: Soft, nontender, no organomegaly, bowel sounds present Neuro: No focal deficits, no facial deformity, AO x3, power 5/5 in all limbs Discharge Data Studies Completed and Pending Completed Studies During Hospitalization Category Date Time Status CT angio abdomen pelvis [id number] Routine Cat Scan 02/16/25 19:27 Completed Cardiac Stress Test MIBI [Sestamibi Stress Test Request Exams 02/16/25 19:14 Draft ] Routine XR chest 1V portable [id number] Stat Exams 02/16/25 08:00 Completed NM camron perf SPECT r/s* [id number] Routine Nuc Med 02/17/25 19:14 Completed CV. echo limited [id number] Routine Ultrasound 02/16/25 12:50 Completed US gall bladder [id number] Routine Ultrasound 02/17/25 08:32 Completed Pending at discharge Category Date Time Status Complete Blood Count w/Auto AM LABS Lab 02/18/25 04:00 Ordered Complete Blood Count w/Auto AM LABS Lab 02/19/25 04:00 Ordered Comprehensive Metabolic Panel AM LABS Lab 02/18/25 04:00 Ordered Comprehensive Metabolic Panel AM LABS Lab 02/19/25 04:00 Ordered Magnesium AM LABS Lab 02/18/25 04:00 Ordered Magnesium AM LABS Lab 02/19/25 04:00 Ordered Phosphorus AM LABS Lab 02/18/25 04:00 Ordered Phosphorus AM LABS Lab 02/19/25 04:00 Ordered Radiology Impressions Chest X-Ray 02/16/25 08:00 IMPRESSION: Suspect minimal atelectasis or scarring at the left lung base. Abdomen/Pelvis CTA 02/16/25 19:27 IMPRESSION: 1. Minimal gallbladder sludge, which extends into the cystic duct. Mildly dilated common bile duct. If there is concern for acute cholecystitis, recommend gallbladder ultrasound. 2. Known, infrarenal abdominal aortic aneurysm, measures 4.0 x 4.0 x 7.4 cm. 3. Fat containing left inguinal hernia. 4. Diverticulosis, without acute diverticulitis. No small bowel obstruction. No free air. Gallbladder Ultrasound 02/17/25 08:32 IMPRESSION: 1. Negative gallbladder for stones or gallbladder wall thickening. 2. Mildly hydropic gallbladder. 3. Normal common bile duct. 4. Normal size liver with a LEFT lobe cyst and RIGHT lobe hemangioma. Echocardiogram: CONCLUSIONS Mildly dilated left ventricle with an ejection fraction of 48%. Wall motion abnormalities as mentioned above. Mildly increased left atrial size. Mild mitral annular calcification. Thickened aortic valve. There is no pericardial effusion. There are no intracardiac masses. Compared to the previous study from 11/21/2024, there may not be a significant change Dr Claire Jaramillo MD [facility] (Electronically Signed) Final Date: 16 February 2025 19:48 Lexiscan stress test: PERFUSION FINDINGS Small area of minimal to moderately decreased tracer uptake was noted in the apical inferior and apical lateral segments. No reversibility is noted in this area FUNCTIONAL RESULTS (calculated via Gated SPECT) Stress Image LV EF (%): 46 Stress EDV (mL):205 TID: 1.03 Stress ESV (mL):111 FUNCTIONAL FINDINGS: Summary wall motion analysis revealed diffuse hypokinesis of the left ventricle. IMPRESSIONS 1. Myocardial perfusion imaging revealing small area of persistent decreased tracer uptake involving the apical inferior and apical lateral segments suggesting myocardial scarring versus attenuation artifact 2. Slightly elevated LV ejection fraction of 46%. 3. LV wall motion analysis revealing mild diffuse hypokinesia of the left ventricle 4. Moderately dilated LV cavity, with an end-systolic volume 111 mL No significant coronary ischemia, based on the above findings Dr Claire Jaramillo MD [facility] (Electronically Signed) Final Date: 17 February 2025 Laboratory Results WBC 10.09 10^3/uL (3.29-11.43) 02/17/25 06:41 RBC 3.41 10^6/uL (3.85-5.65) L 02/17/25 06:41 Hgb 11.20 g/dL (11.27-16.99) L 02/17/25 06:41 Hct 33.7 % (37-53) L 02/17/25 06:41 MCV 98.8 fl (82-101) 02/17/25 06:41 MCH 32.8 pg (27-33) 02/17/25 06:41 MCHC 33.2 g/dL (30-55) 02/17/25 06:41 RDW 13.2 % (12.1-15.1) 02/17/25 06:41 Plt Count 172 10^3/cmm (157-399) 02/17/25 06:41 MPV 10.1 fL (7.4-10.4) 02/17/25 06:41 Neut % (Auto) 87.0 % 02/17/25 06:41 Lymph % (Auto) 6.0 % 02/17/25 06:41 [place] % (Auto) 6.2 % 02/17/25 06:41 Eos % (Auto) 0.1 % 02/17/25 06:41 Baso % (Auto) 0.2 % 02/17/25 06:41 Neut # (Auto) 8.77 10^3/uL (1.8-7.7) H 02/17/25 06:41 Lymph # (Auto) 0.6 10^3/uL (0.8-4.8) L 02/17/25 06:41 [place] # (Auto) 0.6 10^3/uL (0.2-0.9) 02/17/25 06:41 Eos # (Auto) 0.0 10^3/uL (0.0-0.8) 02/17/25 06:41 Baso # (Auto) 0.0 10^3/uL (0.0-0.1) 02/17/25 06:41 Nucleated RBC % (auto) 0 % 02/17/25 06:41 Nucleated RBCs # 0.0 /100WBC 02/17/25 06:41 APTT 55.3 SECONDS (23.9-36.7) H 02/17/25 06:41 Sodium 134 mmol/L (136-145) L 02/17/25 06:41 Potassium 3.7 mmol/L (3.5-5.1) 02/17/25 06:41 Chloride 99 mmol/L (98-107) 02/17/25 06:41 Carbon Dioxide 26 mmol/L (22-29) 02/17/25 06:41 Anion Gap 12.7 (5-19) 02/17/25 06:41 BUN 18 mg/dL (8-23) 02/17/25 06:41 Creatinine 1.1 mg/dL (0.7-1.2) 02/17/25 06:41 GFR Calculation Not Reportable 02/17/25 06:41 Glucose 126 mg/dL (65-115) H 02/17/25 06:41 Estimat Average Glucose 105 02/16/25 08:10 Hemoglobin A1c 5.3 % (4.0-6.0) 02/16/25 08:10 Calculated Osmolality 281 mOsm/kg (285-295) L 02/17/25 06:41 Calcium 8.5 mg/dL (8.5-10.5) 02/17/25 06:41 Phosphorus 2.5 mg/dL (2.5-4.5) 02/17/25 06:41 Magnesium 2.0 mg/dL (1.7-2.3) 02/17/25 06:41 Iron 55 ug/dL (59-158) L 02/16/25 10:06 TIBC 254 mcg/dl 02/16/25 10:06 % Saturation 21.6 % (20-50) 02/16/25 10:06 Unsat Iron Binding 199 ug/dL (112-347) 02/16/25 10:06 Total Bilirubin 0.8 mg/dL (0.15-1.2) 02/17/25 06:41 AST 13 U/L (0-40) 02/17/25 06:41 ALT 9 U/L (0-41) 02/17/25 06:41 Alkaline Phosphatase 47 U/L (40-130) 02/17/25 06:41 Troponin T Baseline 13 ng/L (0-15) 02/16/25 08:10 Troponin T 120 Minute 14.93 ng/L (0-15) 02/16/25 10:06 Delta Troponin T 1.93 ABS# (0-10) 02/16/25 10:06 Troponin T Hi Sens 6Hr 15.32 ng/L (0-15) H 02/16/25 14:00 Troponin T Hi Sens 6Hr Delta 2.32 ng/L (0-12) 02/16/25 14:00 NT-Pro-B Natriuret Pep 4504 pg/mL (0-450) H 02/16/25 14:00 Total Protein 6.5 g/dL (6.6-8.7) L 02/17/25 06:41 Albumin 4.0 g/dL (3.5-5.2) 02/17/25 06:41 Globulin 2.5 g/dL (1.3-4.6) 02/17/25 06:41 Triglycerides 60 mg/dL (0-150) 02/17/25 06:41 Cholesterol 176 mg/dL (0-200) 02/17/25 06:41 LDL Cholesterol, Calc 84 mg/dL (50-129) 02/17/25 06:41 HDL Cholesterol 80 mg/dL (60-100) 02/17/25 06:41 LDL/HDL Ratio 1.05 RATIO (0.00-3.22) 02/17/25 06:41 Cholesterol/HDL Ratio 2.20 mg/dL (1.0-5.00) 02/17/25 06:41 Vitamin B12 393 pg/mL (232-1245) 02/16/25 10:06 Folate > 20.0 ng/mL (4.5-32.2) 02/17/25 06:41 TSH 3.24 uIU/mL (0.27-4.20) 02/16/25 10:06 Vitals Last Vital Signs Temp 98.4 F 02/16/25 23:00 Pulse 87 02/17/25 08:56 Resp 18 02/17/25 08:00 BP 98/48 02/17/25 08:56 Pulse Ox 96 02/17/25 08:00 O2 Del Method Room Air 02/17/25 08:00 Discharge Plan Discharge Patient Disposition: Home Condition: Stable Prescriptions: New pantoprazole [Protonix] 40 mg tablet,delayed release (DR/EC) 40 mg PO QAM Qty: 60 0RF Rx Instructions: Twice daily for next 2 weeks followed by once daily Jardiance 10 mg tablet 10 mg PO DAILY Qty: 30 0RF Continued clopidogrel 75 mg tablet 75 mg PO DAILY Qty: 90 3RF furosemide [Lasix] 40 mg tablet 40 mg PO DAILY Qty: 90 3RF metoprolol succinate 25 mg tablet extended release 24 hr 12.5 mg PO DAILY Qty: 90 3RF Entresto 49-51 mg tablet 1 tab PO BID Qty: 180 3RF simvastatin 80 mg tablet 80 mg PO BEDTIME Qty: 90 3RF finasteride [Proscar] 5 mg tablet 5 mg PO BEDTIME tamsulosin 0.4 mg capsule 0.8 mg PO BEDTIME aspirin 81 mg tablet,delayed release (DR/EC) 81 mg PO DAILY Qty: 90 3RF potassium chloride 20 mEq tablet extended release 20 meq PO BID levothyroxine 125 mcg Tablet 125 mcg PO DAILY Discontinued omeprazole 20 mg capsule,delayed release(DR/EC) 20 mg PO DAILY Discharge Order = DC NOW: Discharge Order (Routine); Ordered 02/17/25 Ordered By: Daniel Hudson Referrals: Mauricio Parks [Primary Care Provider] Discharge Diet: Cardiac Discharge Activity: Resume usual activity and Increase activity as tolerated Patient Instructions: Opioid Safety, Patient Portal & Estephanie Instructions Activity Restrictions/Additional Instructions: Restrict fluid intake to less than 1500 cc, salt intake to less than 2 g daily. Advised to check his weight daily at home. Is advised that weight today would be the dry weight and if body weight increases by around 5 pounds, patient is to take an extra dose of Lasix daily till body weight comes down to weight today. If not able to come down to dry body weight in 1 week, then is to call cardiology office for further recommendations. Patient was counseled in detail to take medications regularly as prescribed. Check your blood pressure daily at home and remember pressure diary. Goal blood pressure less than 140/90 mmHg. Take Protonix 40 mg twice daily for for 14 days followed by 40 mg daily. Take Jardiance 10 mg oral daily. Patient discharged after result of cardiac stress test and gallbladder ultrasound results. Discharge Attestations Time Spent in Discharge Care*: greater than 30 min Specific Discharge Activities: educating patient, educating and/or supporting family/caregiver, discussing with pcp/other providers, discussing with complex case manager/social workers/dc planners, documenting/other paperwork and evaluating patient/reviewing data Status at Discharge: Cognitive status at discharge: cognitively intact, Behavioral status at discharge: cooperative, Functional status at discharge: independent ambulation, Overall status at discharge: patient is back to baseline Quality Metrics Clinical Quality Measures [ No reported AMI, CVA or VTE this stay] Coding Level of Care Code 40362 Total time (in minutes) for Discharge: 65 Diagnoses Atherosclerotic heart disease of [place] coronary artery with other forms of angina pectoris I25.118 Abdominal aortic aneurysm (AAA) 35 to 39 mm in diameter I71.40 Benign hypertension I10 Acute on chronic systolic heart failure I50.23 Heart failure chronicity: acute on chronic Dyslipidemia E78.5
[2025-02-17] MEDS: pantoprazole 40 mg SDV IVP (13:09)
--- NOTE | 2025-02-17 14:17 | PC.NURSE ---
Discharge instructions given to patient and friend, prescriptions to [facility]. Patient's PCP to call with appointment. No further questions. IV removed. Patient ambulated to private vehicle accompanied by this nurse. Friend is driving.
--- NOTE | 2025-02-17 19:14 | NMCV_ITS ---
NM camron perf SPECT r/s* [id number] Tapan Russo Age: 89 Gender: M : 1935 Exam Date: 02/17/2025 08:18 Ordering Phys: Claire Jaramillo MD ([email or web address]) Technologist: MIKIE [place] Exam Location: [facility] Indications: cp STRESS TEST Please see separate stress test report in [facility] for full findings IMAGE PROTOCOL Rest/Stress 1 Lexiscan Day Radiopharmaceutical Dose (mCi) Administration Site Administered by Rest: Tc-99m 11 IV MIKIE [place] Sestamibi Stress:Tc-99m 32.9 IV MIKIE [place] Sestamibi Rest: 17-Feb-2025 60 Discovery 630 Stress: 17-Feb-2025 30 Discovery 630 0.4mg Lexiscan. Images obtained in supine and prone position. SPECT RESULTS Technical Quality: Good Raw Data Analysis: Normal Image Corrections: No attenuation or motion correction applied Summed Stress Score: 3 Summed Rest Score: 5 Summed Difference Score: 0 PERFUSION FINDINGS Small area of minimal to moderately decreased tracer uptake was noted in the apical inferior and apical lateral segments. No reversibility is noted in this area FUNCTIONAL RESULTS (calculated via Gated SPECT) Stress Image LV EF (%): 46 Stress EDV (mL):205 TID: 1.03 Stress ESV (mL):111 FUNCTIONAL FINDINGS: Summary wall motion analysis revealed diffuse hypokinesis of the left ventricle. IMPRESSIONS 1. Myocardial perfusion imaging revealing small area of persistent decreased tracer uptake involving the apical inferior and apical lateral segments suggesting myocardial scarring versus attenuation artifact 2. Slightly elevated LV ejection fraction of 46%. 3. LV wall motion analysis revealing mild diffuse hypokinesia of the left ventricle 4. Moderately dilated LV cavity, with an end-systolic volume 111 mL No significant coronary ischemia, based on the above findings Dr Claire Jaramillo MD [facility] (Electronically Signed) Final Date: 17 February 2025 11:09 S
== END 2025-02-17 14:00 | disposition home or self-care (01) ==
LOC: ER 08:26 → ICU 11:19
PROVIDERS: Internal Medicine Cardiovascular Disease; Student in an Organized Health Care Education/Training Program; Admitting Provider Student in an Organized Health Care Education/Training Program; Emergency Provider Family Medicine; PCP Family Medicine; Visit Provider Student in an Organized Health Care Education/Training Program
DX: I25.118 Atherosclerotic heart disease of native coronary artery with other forms of angina pectoris (principal); I71.40 Abdominal aortic aneurysm, without rupture, unspecified; I11.0 Hypertensive heart disease with heart failure; I50.23 Acute on chronic systolic (congestive) heart failure; E78.5 Hyperlipidemia, unspecified; Z79.82 Long term (current) use of aspirin; Z79.02 Long term (current) use of antithrombotics/antiplatelets; K21.9 Gastro-esophageal reflux disease without esophagitis; E03.9 Hypothyroidism, unspecified; Z87.891 Personal history of nicotine dependence
CPT/HCPCS: 36415; 71045; 74174; 76705; 78452; 80053; 80061; 82607; 82746; 83036; 83540; 83550; 83735; 83880; 84100; 84443; 84484; 85025; 85730; 93005; 93017; 93308; 94664; 96365; 96372; 96375; 99285; A9500; G0378; J1644; J1938; J2270; J2470; J2785; J3411; J9999

== ENCOUNTER 2025-02-19 21:51 | Inpatient (IN) | payer OTHER, SELFPAY ==
--- OUTSIDE RECORDS SUMMARY | 2025-02-19 21:58 | XMS_ITS | Encounter Summary ---
Author Organization [facility] Address [address] [facility] [place] [address] Care Team Providers Care Overseer Kosher Kitchen Name Role Phone Hitesh Vega MD Primary Care Provider [phone] Encounter Details Date Type Department Care Team (Late st Contact Info) Description 02/17/2010 Emergency [facility] Emergency Services [address] [facility] [place] [address] Breonna Benítez Esophageal reflux (Primary Dx) Social History Tobacco Use Types Packs/Day Years Used Date Smoking Tobacco: Never Assessed Sex and Gender Information Value Date Recorded Sex Assigned at Not on file 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
--- OUTSIDE RECORDS SUMMARY | 2025-02-19 21:58 | XMS_ITS | Clinical Summary ---
Author Organization [facility] Address [address] [address] Phone Care Team Providers Care Application Engineer Name Role Phone Unavailable Primary Care Provider [...] patient's age to complete this topic Insurance [address] [place] [address] [employer]
--- OUTSIDE RECORDS SUMMARY | 2025-02-19 21:58 | XMS_ITS | Clinical Summary ---
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
--- NOTE | 2025-02-19 22:08 | XRR_ITS ---
PROCEDURE INFORMATION: Exam: XR Chest Exam date and time: 02/19/2025 10:10 PM Age: 89 years old Clinical indication: Shortness of breath TECHNIQUE: Imaging protocol: Radiologic exam of the chest. Views: 1 view. COMPARISON: CR (CHEST, ) 02/16/2025 8:04 AM FINDINGS: Lungs: Mild atelectasis in the lung bases, [id number]. No consolidation. Pleural spaces: Unremarkable. No pleural effusion. No pneumothorax. Heart/Mediastinum: Unremarkable. No cardiomegaly. Diaphragm: Stable elevation of the right diaphragm. Bones/joints: Unremarkable. Gastrointestinal tract: Interposed colon beneath the right diaphragm. XR/XR chest 1V portable [id number] IMPRESSION: No acute findings.
[2025-02-19 22:10] VITALS: BP 138/95; PULSE 97; RESP 30; TEMP 37; O2SAT 95; BMI 28.8
--- NOTE | 2025-02-19 22:13 | CTR_ITS ---
PROCEDURE INFORMATION: Exam: CTA Chest With Contrast Exam date and time: 02/19/2025 10:44 PM Age: 89 years old Clinical indication: Shortness of breath TECHNIQUE: Imaging protocol: Computed tomographic angiography of the chest with contrast. Exam focused on the arteries. 3D rendering (Not supervised by radiologist): MIP and/or 3D reconstructed images were created by the technologist. Radiation optimization: All CT scans at this facility use at least one of these dose optimization techniques: automated exposure control; mA and/or kV adjustment per patient size (includes targeted exams where dose is matched to clinical indication); or iterative reconstruction. Contrast material: OMNI 350; Contrast volume: 100 ml; Contrast route: INTRAVENOUS (IV); COMPARISON: CR (CHEST, ) 02/19/2025 10:10 PM RADIATION DOSE METRICS: Total DLP (mGy-cm): 416.89 FINDINGS: Pulmonary arteries: Normal. No pulmonary emboli. Aorta: Unremarkable. No aortic aneurysm. No aortic dissection. Lungs: Dependent atelectasis in both lungs. No consolidation. Right lower lobe calcified granuloma. Pleural spaces: Trace right pleural effusion. Heart: Unremarkable. No cardiomegaly. No pericardial effusion. Coronary arteries: Coronary artery calcifications. Lymph nodes: Unremarkable. No enlarged lymph nodes. Diaphragm: Small hiatal hernia. Gallbladder and biliary ducts: Inflamed gallbladder with irregular wall thickening and pericholecystic fat stranding. Bones/joints: Degenerative changes in the spine with mild leftward curvature. No acute fracture. Soft tissues: Unremarkable. CT/CT angio chest PE protcl [id number] IMPRESSION: 1. No evidence of pulmonary embolus. 2. Trace right pleural effusion. 3. Acute cholecystitis. Please refer to CT abdomen pelvis report.
[2025-02-19 22:16] VITALS: BP 138/95; PULSE 97; RESP 30; TEMP 37; O2SAT 95
[2025-02-19 22:29] LABS: ABG PCO2 34.6 mmHg (35-45); ABG PH Result 7.43 (7.35-7.45); Alveolar-Arterial Oxygen Gradi 6.1 mmHg (5-10); Arterial Blood Gas Hematocrit 34.7 % (42-52); Blood Gas Allen Test Pos; Blood Gas Sample Site Radial, right; Blood Gas Sample Type Arterial; Carboxyhemoglobin 0.9 %THgb (0.4-20.1); Glucose Level-ABG 146.0 mg/dL (70-115); HCO3 ABG 23.0 mmol/L (22-26); Ionized Calcium Level - ABG 1.1 mmol/L (1.1-1.4); Methemoglobin 1.0 % (0.4-1.5); Oxygen Saturation ABG 92.5; PO2 ABG 60.6 mmHg (80.0-100.0); Potassium Level - ABG 3.9 mmol/L (3.5-5.0); Sodium Level - ABG 138.0 mmol/L (131-143)
--- NOTE | 2025-02-19 22:36 | ED_ITS ---
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 On exam patient appears uncomfortable, is tachypneic and is complaining of right sided upper chest pain/shoulder pain. He states that he has been afebrile. He denies productive cough or hemoptysis. He does not have a history of COPD. Patient is a former smoker (stopped 40y ago). Patient denies any history of DVT/PE, syncope, lower extremity asymmetry. He has not experienced significant orthopnea. He does have mild lower extremity edema and takes furosemide daily. Patient denies abdominal pain, nausea, vomiting, diarrhea or dysuria. Related Data Home Medications ?Medication ?Instructions ?Recorded ?Confirmed finasteride 5 mg tablet (Proscar) 5 mg PO BEDTIME 04/1002/16/25 tamsulosin 0.4 mg capsule 0.8 mg PO BEDTIME 04/28/22 1 04/18/24 levothyroxine 125 mcg tablet 125 mcg PO DAILY 02/16/25 02/16/25 potassium chloride 20 mEq 20 meq PO BID 02/16/2502/16 tablet,extended release Previous Rx's ?Medication ?Instructions ?Recorded aspirin 81 mg tablet,delayed 81 mg PO DAILY #90 tabs 0 08/01/24 release clopidogrel 75 mg tablet 75 mg PO DAILY #90 tabs 11/08 08/02 furosemide 40 mg tablet (Lasix) 40 mg PO DAILY #90 tab s 11/21/24 metoprolol succinate 25 mg 12.5 mg (1/2 x 25 mg) PO DA SAVANNAH #90 11/21/24 tablet,extended release 24 hr tabs sacubitril 49 mg-valsartan 51 mg 1 tab PO BID #180 tab s 11/21/24 tablet (Entresto) simvastatin 80 mg tablet 80 mg PO BEDTIME #90 tabs empagliflozin 10 mg tablet 10 mg PO DAILY #30 tabs 02/01 (Jardiance) pantoprazole 40 mg tablet,delayed 40 mg PO QAM #60 tab s 02/17/25 release (Protonix) Allergies Allergy/AdvReac Type Severity Reaction Status Date / Time No Known Allergies Allergy Verified 02/16/25 08:08 [facility] ED 2 [facility]: Medical History (Updated 02/20/25 @ 00:32 by Katie Rhodes MD) Hypertension Hypothyroidism Acute on chronic systolic heart failure Coronary artery disease Surgical History Coronary angioplasty status Social History Smoking and tobacco/nicotine status: former use of tobacco/nicotine (quit 1968) Physical Exam 2 Narrative: EXAM NARRATIVE: Vital signs were reviewed. Patient is alert and oriented. Patient is uncomfortable, tachypneic but SpO2 is above 95% on RA. Patient has clear lungs b/l, no rhonchi, wheezing or crackles. No hypotension or tachycardia. Abdomen is soft, nondistended and nontender. Patient is moving all extremities, no deformity or gross injury. No lower extremity asymmetry. Mild b/l LE edema. Course 2 Vital Signs: Vital signs: Vital Signs Temperature 98.6 F 02/19/25 22:16 Pulse Rate 86 02/20/25 00:00 Respiratory Rate 35 H 02/19/25 23:20 Blood Pressure 126/57 02/20/25 00:00 Pulse Oximetry 96 02/20/25 00:00 Oxygen Delivery Me thod Nasal Cannula 02/20/25 00:00 Oxygen Flow Rate 1 02/20/25 00:00 [facility] - General Adult Medical Decision Making 89-year-old male with history of cardiac disease, heart failure, hypertension and thyroid disease presents with a chief complaint of sudden onset of shortness of breath/difficulty breathing. Differential diagnosis includes presumptive, pulmonary embolus, pneumothorax, heart failure, viral upper respiratory infection, pneumonia, COPD/asthma exacerbation, ACS, pericardial effusion, other. On exam, patient is tachypneic but continues to maintain SpO2 above 95% on room air. Patient was evaluated with CBC, CMP, troponin, BNP, ABG, COVID and flu screen, EKG, chest x-ray, CT PE. Patient was placed on supplemental oxygen for comfort and treated with IV morphine and IV Zofran. On reassessment, patient is much more comfortable. Patient has a normal white count, he is not anemic, there are no electrolyte abnormalities that are actionable. Patient's creatinine is mildly elevated in comparison to previous which may be consistent with VALORIE. LFTs are relatively within normal limits. Patient has an elevation in troponin and elevated BNP. CT scan does not show PE, pneumonia, pneumothorax but does show acute cholecystitis. Patient will need admission for surgical consultation. He was started n.p.o., given a dose of Zosyn here in the emergency department admitted to the medical floor. Lab Data 02/19/25 22:26 02/19/25 22:26 Radiology Impressions Chest X-Ray 02/19/25 22:08 IMPRESSION: No acute findings. Chest CTA 02/19/25 22:13 IMPRESSION: 1. No evidence of pulmonary embolus. 2. Trace right pleural effusion. 3. Acute cholecystitis. Please refer to CT abdomen pelvis report. Abdomen/Pelvis CT 02/19/25 22:52 IMPRESSION: 1. Findings consistent with acute cholecystitis. No visible gallstones. 2. Mild colitis in the hepatic flexure portion of the colon as it passes adjacent to the inflamed gallbladder. 3. Small bowel ileus. 4. Diverticulosis of the colon without diverticulitis. 5. Asymmetric enlargement of the left prostate. An underlying neoplastic process is not excluded. COMMENTS: Consistent with the [employer]'s Incidental Findings Committee white paper (J Am Meet Radiol 2018): Any incidental renal lesion less than 1 cm or classified as too small to characterize, or any incidental cystic renal lesion characterized as simple-appearing, is likely benign. No follow-up imaging is recommended for these lesions per consensus recommendations based on imaging criteria. Laboratory Results WBC 10.48 10^3/uL (3.29-11.43) 02/19/25: RBC 3.57 10^6/uL (3.85-5.65) L 02/19/25: Hgb 11.60 g/dL (11.27-16.99) 02/19/25: Hct 34.8 % (37-53) L 02/19/25: MCV 97.5 fl (82-101) 02/19/25: MCH 32.5 pg (27-33) 02/19/25: MCHC 33.3 g/dL (30-55) 02/19/25: RDW 13.2 % (12.1-15.1) 02/19/25: Plt Count 199 10^3/cmm (157-399) 02/19/25 22: MPV 10.6 fL (7.4-10.4) H 02/19/25 22: Neut % (Auto) 87.1 % 02/19/25: Lymph % (Auto) 5.0 % 02/19/25: Avery % (Auto) 7.0 % 02/19/25: Eos % (Auto) 0.1 % 02/19/25: Baso % (Auto) 0.2 % 02/19/25: Neut # (Auto) 9.14 10^3/uL (1.8-7.7) H 02/19/25: Lymph # (Auto) 0.5 10^3/uL (0.8-4.8) L 02/19/25: Avery # (Auto) 0.7 10^3/uL (0.2-0.9) 02/19/25: Eos # (Auto) 0.0 10^3/uL (0.0-0.8) 02/19/25: Baso # (Auto) 0.0 10^3/uL (0.0-0.1) 02/19/25: Nucleated RBC % (auto) 0 % 02/19/25: Nucleated RBCs # 0.0 /100WBC 02/19/25: Specimen Type Arterial 02/19/25 22: Sample Site Radial, right 02/19/25 22:18 ABG pH 7.43 (7.35-7.45) 02/19/25 22:18 ABG pCO2 34.6 mmHg (35-45) L 02/19/25 22: ABG pO2 60.6 mmHg (80.0-100.0) L 02/19/25 22:18 ABG HCO3 23.0 mmol/L (22-26) 02/19/25 22: ABG O2 Saturation 92.5 02/19/25 22: ABG Base Excess -0.8 mmol/L (-2.0-2.0) 02/19/25 22:18 Pablo Test Pos 02/19/25 22:18 A-a O2 Gradient 6.1 mmHg (5-10) 02/19/25 22:18 Hematocrit 34.7 % (42-52) L 02/19/25 22:18 Hgb O2 Saturation 90.7 % (95-100) L 02/19/25 22:18 Carboxyhemoglobin 0.9 %THgb (0.4-20.1) 02/19/25 22:18 Methemoglobin 1.0 % (0.4-1.5) 02/19/25 22:18 Total Hemoglobin 11.3 g/dL (14-18) L 02/19/25 22:18 Sodium 138.0 mmol/L (131-143) 02/19/25 22:18 Potassium 3.9 mmol/L (3.5-5.0) 02/19/25 22:18 Glucose 146.0 mg/dL (70-115) H 02/19/25 22:18 Ionized Calcium 1.1 mmol/L (1.1-1.4) 02/19/25 22:18 O2 Delivery Device Room air 02/19/25 22:18 Helix Coil Winder ID [email or web address] 02/19/25 22:18 Sodium 138 mmol/L (136-145) 02/19/25 22:26 Potassium 4.2 mmol/L (3.5-5.1) 02/19/25 22:26 Chloride 100 mmol/L (98-107) 02/19/25 22:26 Carbon Dioxide 22 mmol/L (22-29) 02/19/25 22:26 Anion Gap 20.2 (5-19) H 02/19/25 22:26 BUN 34 mg/dL (8-23) H 02/19/25 22:26 Creatinine 1.7 mg/dL (0.7-1.2) H 02/19/25 22:26 GFR Calculation Not Reportable 02/19/25 22:26 Glucose 142 mg/dL (65-115) H 02/19/25 22:26 Calculated Osmolality 296 mOsm/kg (285-295) H 02/19/25 22:26 Calcium 8.6 mg/dL (8.5-10.5) 02/19/25 22:26 Total Bilirubin 0.9 mg/dL (0.15-1.2) 02/19/25 22: AST 48 U/L (0-40) H 02/19/25 22: ALT 74 U/L (0-41) H 02/19/25 22: Alkaline Phosphatase 129 U/L (40-130) 02/19/25 22: Troponin T Baseline 28 ng/L (0-15) H 02/19/25 22: NT-Pro-B Natriuret Pep 5752 pg/mL (0-450) H 02/19/25 22: Total Protein 6.3 g/dL (6.6-8.7) L 02/19/25 22: Albumin 3.9 g/dL (3.5-5.2) 02/19/25: Globulin 2.4 g/dL (1.3-4.6) 02/19/25 22:26 Influenza A (PCR) Negative (Negative) 02/19/25 22:32 Influenza Type B (PCR) Negative (Negative) 02/19/25 22: RSV (PCR) Negative (Negative) 02/19/25 22:32 SARS-CoV-2 (PCR) Negative (Negative) 02/19/25 22:32 All radiology interpretation(s) finalized by discharge EKG Data EKG 1: Interpretation: Sinus rhythm with frequent PVCs, heart rate of 93, left axis deviation, prolonged QRS, normal QT/QTc, no STEMI. Q waves in precordial leads, poor R wave progression (wonder if this is related to lead placement), Q waves in inferior leads. Computer generated interpretation: Chest X-Ray 02/19/25 22:08 IMPRESSION: No acute findings. Chest CTA 02/19/25 22:13 IMPRESSION: 1. No evidence of pulmonary embolus. 2. Trace right pleural effusion. 3. Acute cholecystitis. Please refer to CT abdomen pelvis report. Abdomen/Pelvis CT 02/19/25 22:52 IMPRESSION: 1. Findings consistent with acute cholecystitis. No visible gallstones. 2. Mild colitis in the hepatic flexure portion of the colon as it passes adjacent to the inflamed gallbladder. 3. Small bowel ileus. 4. Diverticulosis of the colon without diverticulitis. 5. Asymmetric enlargement of the left prostate. An underlying neoplastic process is not excluded. COMMENTS: Consistent with the [employer] [employer]'s Incidental Findings Committee white paper (J Am Meet Radiol 2018): Any incidental renal lesion less than 1 cm or classified as too small to characterize, or any incidental cystic renal lesion characterized as simple-appearing, is likely benign. No follow-up imaging is recommended for these lesions per consensus recommendations based on imaging criteria. Discharge Plan Discharge Patient Disposition: Admitted As Inpatient Clinical Impression: Acute cholecystitis, Heart failure, VALORIE (acute kidney injury) Condition: Stable Coding Level of Care Code ED Bar Supervisor for Lennie Garcia
--- NOTE | 2025-02-19 22:39 | ECG_ITS ---
[facility] Date: 2025-02-19 Pat Name: Tapan Russo Department: Room: Gender: Male Cna Ltc: : 1935 Requested By: Katie Rhodes Order Number: [id number] Ciera MD: Errol Paz M.D. Measurements Intervals [place] Rate: 93 P: -8 CO: 162 QRS: -53 QRSD: 113 T: 107 QT: 343 QTc: 427 Interpretive Statements SINUS RHYTHM WITH FREQUENT VENTRICULAR PREMATURE COMPLEXES POSSIBLE LEFT ATRIAL ENLARGEMENT [-0.1mV P-WAVE IN V1/V2] INFERIOR MYOCARDIAL INFARCTION , OF INDETERMINATE AGE ANTEROSEPTAL MYOCARDIAL INFARCTION , OF INDETERMINATE AGE MODERATE T-WAVE ABNORMALITY, CONSIDER LATERAL ISCHEMIA [-0.1+ mV T-WAVE IN I/aVL/V5/V6] Compared to ECG 02/16/2025 14:52:16 First degree AV block no longer present Electronically Signed On 02-20-2025 19:58:25 MUSEUM OR ZOO DIRECTOR by Errol Paz M.D. [email or web address]
[2025-02-19 22:42] LABS: Hematocrit 34.8 % (37-53); Hemoglobin 11.60 g/dL (11.27-16.99); Mean Corpuscular HGB Conc 33.3 g/dL (30-55); Mean Corpuscular Hemoglobin 32.5 pg (27-33); Mean Corpuscular Volume 97.5 fl (82-101); Nucleated Red Blood Cells % 0 %; Platelet Count 199 10^3/cmm (157-399); Red Blood Count 3.57 10^6/uL (3.85-5.65); White Blood Count 10.48 10^3/uL (3.29-11.43)
--- NOTE | 2025-02-19 22:52 | CTR_ITS ---
PROCEDURE INFORMATION: Exam: CT Abdomen And Pelvis Without Contrast Exam date and time: 02/19/2025 10:54 PM Age: 89 years old Clinical indication: Abdominal pain; PT has a HX of prostate cancer; Additional info: Shortness of breath, upper abd pain TECHNIQUE: Imaging protocol: Computed tomography of the abdomen and pelvis without contrast. Radiation optimization: All CT scans at this facility use at least one of these dose optimization techniques: automated exposure control; mA and/or kV adjustment per patient size (includes targeted exams where dose is matched to clinical indication); or iterative reconstruction. COMPARISON: CT angio abdomen pelvis [id number] 02/16/2025 10:20 PM RADIATION DOSE METRICS: Total DLP (mGy-cm): 890.88 FINDINGS: Lungs: Discoid atelectasis in the lung bases. Pleural spaces: Small right pleural effusion. Liver: Multiple hepatic cysts, Hounsfield units less than 20. No follow-up imaging is recommended. Gallbladder and biliary ducts: Fluid distended gallbladder with a thickened irregular wall. Pericholecystic fluid and fat stranding. No visible gallstone. The bile ducts are normal. Pancreas: Normal. No ductal dilation. Spleen: Normal. No splenomegaly. Adrenal glands: Normal. No mass. Kidneys and ureters: Contrast excretion in both renal collecting systems. No hydronephrosis. Small left renal cyst, Hounsfield units less than 20. No follow-up imaging is recommended. Stomach and bowel: Diverticulosis in the colon. No diverticulitis. Mild wall thickening in the hepatic flexure segment of the colon, as it passes adjacent to the inflamed gallbladder. Scattered gas and fluid in mildly distended small bowel, measuring up to 3.1 cm diameter. No transition point or obstruction. The stomach is unremarkable. Appendix: The appendix is visualized and is normal. Intraperitoneal space: Unremarkable. No free air. No significant fluid collection. Vasculature: Calcified arterial plaque. 4.3 cm fusiform infrarenal abdominal aortic aneurysm. No dissection. Lymph nodes: Unremarkable. No enlarged lymph nodes. Urinary bladder: Unremarkable as visualized. Reproductive: Prostatomegaly with asymmetric enlargement of the left lobe. Bones/joints: Degenerative changes in the spine and right hip. No acute fracture. Anterior subluxation of L4 on L5. Soft tissues: Fat containing inguinal hernias, left greater than right. CT/CT abdomen pelvis wo con [id number] IMPRESSION: 1. Findings consistent with acute cholecystitis. No visible gallstones. 2. Mild colitis in the hepatic flexure portion of the colon as it passes adjacent to the inflamed gallbladder. 3. Small bowel ileus. 4. Diverticulosis of the colon without diverticulitis. 5. Asymmetric enlargement of the left prostate. An underlying neoplastic process is not excluded. COMMENTS: Consistent with the [place] [employer]'s Incidental Findings Committee white paper (J Am Emet Radiol 2018): Any incidental renal lesion less than 1 cm or classified as too small to characterize, or any incidental cystic renal lesion characterized as simple-appearing, is likely benign. No follow-up imaging is recommended for these lesions per consensus recommendations based on imaging criteria.
[2025-02-19 23:06] LABS: Troponin(5th) Baseline 28 ng/L (0-15)
[2025-02-19 23:14] VITALS: BP 118/69; PULSE 98; O2SAT 94
[2025-02-19 23:16] LABS: Alanine Aminotransferase 74 U/L (0-41); Albumin Level 3.9 g/dL (3.5-5.2); Alkaline Phosphatase 129 U/L (40-130); Blood Urea Nitrogen 34 mg/dL (8-23); Calcium 8.6 mg/dL (8.5-10.5); Carbon Dioxide 22 mmol/L (22-29); Chloride 100 mmol/L (98-107); Globulin 2.4 g/dL (1.3-4.6); Glucose 142 mg/dL (65-115); NT Pro B Type Natriuretic Pept 5752 pg/mL (0-450); Osmolality Calculated 296 mOsm/kg (285-295); Sodium 138 mmol/L (136-145); Total Protein 6.3 g/dL (6.6-8.7)
[2025-02-19 23:20] VITALS: RESP 35; O2SAT 96
[2025-02-19] MEDS: morphine 4 mg/mL SDV 1 mL IVP (23:20)
[2025-02-19 23:22] LABS: Anion Gap 20.2 (5-19); Aspartate Amino Transferase 48 U/L (0-40); Potassium 4.2 mmol/L (3.5-5.1)
[2025-02-19] MEDS: ondansetron 2 mg/ML SDV 2 mL 4 MG IVP (23:25)
[2025-02-19 23:30] VITALS: BP 140/63; PULSE 95; O2SAT 99
[2025-02-19 23:30] LABS: Slide Review Slide Review Perform
[2025-02-19 23:37] LABS: Respiratory Syncytial Virus Ce NEGATIVE (Negative); SARS-CoV-2 PCR NEGATIVE (Negative)
[2025-02-20] VITALS (16 sets, daily range): BP systolic 104–126; BP diastolic 41–70; PULSE 60–101; RESP 15–28; TEMP 35.8–36.9; O2SAT 90–97; BMI 29.0
--- NOTE | 2025-02-20 00:31 | ECG_ITS ---
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 Measurements Intervals [place] Rate: 90 P: 1 NH: 192 QRS: -60 QRSD: 130 T: 111 QT: 355 QTc: 435 Interpretive Statements SINUS RHYTHM WITH FREQUENT VENTRICULAR PREMATURE COMPLEXES POSSIBLE LEFT ATRIAL ENLARGEMENT [-0.1mV P-WAVE IN V1/V2] INFERIOR MYOCARDIAL INFARCTION , OF INDETERMINATE AGE [40+ ms Q WAVE AND/OR ST/T ABNORMALITY IN II/aVF] ANTEROSEPTAL MYOCARDIAL INFARCTION , OF INDETERMINATE AGE [40+ ms Q WAVE IN V1-V4] MODERATE T-WAVE ABNORMALITY, CONSIDER LATERAL ISCHEMIA [-0.1+ mV T-WAVE IN I/aVL/V5/V6] Compared to ECG 02/19/2025 22:39:24 No significant changes Electronically Signed On 02-21-2025 19:47:42 DIRECTOR OF GRADUATE MEDICAL EDUCATION by Hira Cha M.D. [id number] [id number]
--- NOTE | 2025-02-20 01:31 | P.HP_ITS ---
Providers/Chief Complaint 2 Admitting Physician: Oneal Salcido MD Primary Care Provider: Mauricio Parks Chief Complaint: trouble breathing History of Present Illness Tapan Russo is a 89 year old male with a past medical history of CAD, status post stenting, on aspirin, Plavix, systolic and diastolic CHF, recent hospitalization for chest pain, status post stress testing, hypothyroidism who presents [facility] for chest pain, shortness of breath, right shoulder pain, right upper quadrant abdominal pain. Currently patient alert orientated x 3, following all commands, he is hard of hearing, he reports pain in his right shoulder, radiating into his right chest, he is also tender in the right upper quadrant complains of shortness of breath, feels nauseous, no vomiting, no diarrhea, no constipation Medications/Allergies Home Medications ?Medication ?Instructions ?Recorded ?Confirmed ?Last Taken ?Type finasteride 5 mg tablet (Proscar) 5 mg PO BEDTIME 04/1002/16/25 02/15/25 History tamsulosin 0.4 mg capsule 0.8 mg PO BEDTIME 04/28/2204/18/24 02/15/25 History aspirin 81 mg tablet,delayed 81 mg PO DAILY #90 tabs 0 08/01/24 02/16/25 02/15/25 Rx release clopidogrel 75 mg tablet 75 mg PO DAILY #90 tabs 11/0802/16/25 02/15/25 Rx furosemide 40 mg tablet (Lasix) 40 mg PO DAILY #90 tab s 11/21/24 02/16/25 02/15/25 Rx metoprolol succinate 25 mg 12.5 mg (1/2 x 25 mg) PO DA SAVANNAH #90 11/21/24 02/16/25 02/15/25 Rx tablet,extended release 24 hr tabs sacubitril 49 mg-valsartan 51 mg 1 tab PO BID #180 tab s 11/21/24 02/16/25 02/15/25 Rx tablet (Entresto) simvastatin 80 mg tablet 80 mg PO BEDTIME #90 tabs 02/16/25 02/15/25 Rx levothyroxine 125 mcg tablet 125 mcg PO DAILY 02/16/25 02/16/25 02/15/25 07:00 History potassium chloride 20 mEq 20 meq PO BID 02/16/2502/1602/15/25 History tablet,extended release empagliflozin 10 mg tablet 10 mg PO DAILY #30 tabs 02/01 Unknown Rx (Jardiance) pantoprazole 40 mg tablet,delayed 40 mg PO QAM #60 tab s 02/17/25 Unknown Rx release (Protonix) Allergies Allergy/AdvReac Type Severity Reaction Status Date / Time No Known Allergies Allergy Verified 02/16/25 08:08 PFSH Acute 2 PFSH: Medical History Hypertension Hypothyroidism Acute on chronic systolic heart failure Coronary artery disease Surgical History Coronary angioplasty status Social History Smoking and tobacco/nicotine status: former use of tobacco/nicotine (quit 1968) Vitals/I&O/Wt Last Vital Signs Temp 98.6 F 02/19/25 22:16 Pulse 86 02/20/25 00:00 Resp 35 H 02/19/25 23:20 BP 126/57 02/20/25 00:00 Pulse Ox 96 02/20/25 00:00 O2 Del Method Nasal Cannula 02/20/25 00:00 O2 Flow Rate 1 02/20/25 00:00 Weight last 48 hrs Weight 86.183 kg Physical Exam 2 Const: COMMON NORMALS: no acute distress and patient oriented x3 HENMT: COMMON NORMALS: normocephalic HEAD & SCALP: normocephalic Neck/C-Spine: COMMON NORMALS: no JVD Resp: COMMON NORMALS: normal respiratory effort, No retractions, No use of accessory muscles and clear to auscultation bilaterally AUSCULTATION: clear to auscultation bilaterally Cardio: COMMON NORMALS: no JVD, regular rate, regular rhythm, S1 normal heart sound present and S2 normal heart sound present RATE: regular rate RHYTHM: regular rhythm HEART SOUNDS: S1 normal heart sound present and S2 normal heart sound present GI: COMMON NORMALS: Normal to inspection, nondistended, normoactive bowel sounds present and Soft to palpation OTHER: Right upper quadrant tenderness Extremity: COMMON NORMALS: no calf tenderness and no pedal edema Neuro: COMMON NORMALS: patient oriented x3, CN's II-XII intact bilaterally, moves all extremities and no focal motor deficits Psych: COMMON NORMALS: mental status grossly normal Data 02/19/25 22:26 02/19/25 22:26 A&P Assessment and plan 1. Chest pain: 2. Heart failure: 3. Acute cholecystitis: Plan: Chest pain - Serial EKGs, serial troponins, telemetry monitoring - Aspirin, statin, Plavix, beta-tesfaye - Recent stress test IMPRESSIONS 1. Myocardial perfusion imaging revealing small area of persistent decreased tracer uptake involving the apical inferior and apical lateral segments suggesting myocardial scarring versus attenuation artifact 2. Slightly elevated LV ejection fraction of 46%. 3. LV wall motion analysis revealing mild diffuse hypokinesia of the left ventricle 4. Moderately dilated LV cavity, with an end-systolic volume 111 mL No significant coronary ischemia, based on the above findings - CT angiogram of the chest, no acute pulmonary embolism Right upper quadrant abdominal pain, -Concerns for acute cholecystitis CT/CT abdomen pelvis wo con [id number] IMPRESSION: 1. Findings consistent with acute cholecystitis. No visible gallstones. 2. Mild colitis in the hepatic flexure portion of the colon as it passes adjacent to the inflamed gallbladder. 3. Small bowel ileus. 4. Diverticulosis of the colon without diverticulitis. 5. Asymmetric enlargement of the left prostate. An underlying neoplastic process is not excluded. Plan -N.p.o. -Gallbladder ultrasound -History of CHF elevated BNP, gentle IV hydration with VALORIE -Zosyn -Full code -Lovenox for DVT prophylaxis Complaints of shortness of breath, -Creatinine 1.7, will consider Lasix based on clinical progress Acute kidney injury on CKD, monitor on IV fluids PDMP PDMP Reviewed: Not Reviewed Attestations 2 Medical Necessity Statement*: Patient requires hospitalization, outpatient with observation, for chest pain, right upper quadrant abdominal pain Diagnoses Chest pain R07.9 Heart failure I50.9 Acute cholecystitis K81.0
[2025-02-20 01:39] LABS: Troponin 5 2HR 29.06 ng/L (0-15); Troponin 5 2HR Delta 1.06 ABS# (0-10)
[2025-02-20] MEDS: piperacillin-tazobactam 4.5 GM in sodium chloride 0.9% (plus) 50 ML IV (01:42)
[2025-02-20 01:54] LABS: Lactic Sepsis W/Reflex 1.5 mmol/L (0.5-2.2)
--- NOTE | 2025-02-20 02:20 | USCV_ITS ---
Rafaela Tapan Age: 89 Gender: M : 1935 Exam Date: 02/20/2025 03:49 Ordering Phys: Oneal Salcido MD Technologist: SYLVAIN [place]am [place] [facility] [place]ication: chest pain, SOB, history CAD s/p PCI, BP: 106 / 58 HR: 60 Rhythm: Mostly Atrial fibrillation with strings of sinus rhythm Technical Quality: Adequate MEASUREMENTS (Male / Female) Normal Values 2D ECHO LV Diastolic Diameter PLAX 4.8 cm 4.2 - 5.9 / 3.9 - 5.3 cm IVS Diastolic Thickness 1.4 cm 0.6 - 1.0 / 0.6 - 0.9 cm IVS Systolic Thickness 1.7 cm LVPW Diastolic Thickness 1.4 cm 0.6 - 1.0 / 0.6 - 0.9 cm LVPW Systolic Thickness 1.6 cm LVOT Diameter 2.1 cm LV Ejection Fraction 2D Teich 46.8 % LV Ejection Fraction MOD 4C 48.9 % LV Ejection Fraction MOD 2C 35.0 % LV Ejection Fraction 2C AL 38.2 % LA Diameter 3.5 cm Aorta at Sinotubular Diameter 2.6 cm IVC Diameter 1.1 cm M-MODE LA Ao Ratio MM 1.2 AV Cusp Separation MM 1.7 cm DOPPLER AV Peak Velocity 235.0 cm/s LVOT Peak Velocity 119.0 cm/s AV Area Cont Eq vti 2.5 cm squared AV Area Cont Eq pk 1.7 cm squared MV Peak Velocity 136.0 cm/s MV Area PHT 3.7 cm squared Mitral E to A Ratio 0.7 TV Peak E Velocity 38.0 cm/s PV Peak Velocity 121.0 cm/s FINDINGS Left Ventricle Left ventricle is normal in size. LV systolic function is mildly reduced with EF of 40-45%. Mild global hypokinesis. Grade 1 diastolic dysfunction Right Ventricle Normal in size and function Right Atrium Normal in size Left Atrium Dilated IA Septum Grossly normal Mitral Valve Mild mitral annular calcification. Mild mitral regurgitation. Aortic Valve Aortic valve is thickened. Mild to moderate aortic regurgitation. No significant stenosis. Tricuspid Valve Insufficient TR jet to calculate RVSP Pulmonic Valve Mild pulmonic regurgitation Pericardium Normal Aorta Normal in size IVC Not well visualized CONCLUSIONS LV systolic function is mildly reduced with EF of 40-45% Grade 1 diastolic dysfunction Left atrial dilation Mild mitral regurgitation. Mild to moderate aortic regurgitation Mild pulmonic regurgitation Hira Cha MD (Electronically Signed) Final Date: 21 February 2025 12:13 S
--- NOTE | 2025-02-20 02:20 | US_ITS ---
WS: [id number] RIGHT UPPER QUADRANT ULTRASOUND HISTORY: ruq pain COMPARISON: CT 02/19/2025, Prior ultrasound 02/17/2025. Liver: 12.4 cm in length. Limited evaluation of the liver. No intrahepatic duct dilatation. Possible cyst in the posterior liver. This area of decreased echogenicity measures 1.1 x 1.6 x 1.3 cm. Hyperechoic focus in the central liver measures 1.1 x 1.5 x 1.1 cm. Neither lesion location is well depicted. Cannot determine if these are within the RIGHT or LEFT lobes. Portal Vein: Normal hepatopetal flow with monophasic waveform. Gallbladder: Abnormal gallbladder. Hydropic gallbladder with adjacent fluid. No stones or shadowing identified. Amount of fluid adjacent to the gallbladder has increased. CBD: 0.3 cm Pancreas: Completely obscured. Right kidney: 9.9 cm in length. Poorly visualized. Aorta and IVC: Limited. No ascites. US/US gall bladder [id number] IMPRESSION: 1. Limited RIGHT upper quadrant ultrasound evaluation. 2. Hydropic gallbladder with mild wall thickening and adjacent fluid. No stone s are identified. Findings are highly suspicious for acute acalculous cholecyst itis. CT of 02/19/2025 was also highly suspicious for acute cholecystitis.
[2025-02-20] MEDS: pantoprazole 40 mg SDV IVP (02:45)
[2025-02-20 04:12] LABS: Glucose Urine UA Negative (Normal); Nitrate Urine Negative (Negative); Specific Gravity, Urine 1.027 (1.005-1.030)
[2025-02-20 04:17] LABS: Add Urine Microscopic? YES
[2025-02-20 04:19] LABS: Lipase 15 U/L (13-60); Thyroid Stimulating Hormone 3.82 uIU/mL (0.27-4.20)
[2025-02-20 04:31] LABS: UA Slide Review UA Slide Review Perf
[2025-02-20] MEDS: FUROsemide 10 mg/mL SDV 4mL 40 MG IVP (04:49)
[2025-02-20] MEDS: metoprolol succinate ER (24 HR) 25 mg Tablet 12.5 MG PO (04:57)
[2025-02-20] MEDS: morphine 4 mg/mL SDV 1 mL 2 MG IVP (05:37)
--- OUTSIDE RECORDS SUMMARY | 2025-02-20 05:39 | XMS_ITS | Clinical Summary ---
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
--- OUTSIDE RECORDS SUMMARY | 2025-02-20 05:39 | XMS_ITS | Encounter Summary ---
Author Organization [facility] Address [address] [facility] [place] [address] Care Team Providers Care Tumble Tailstock Turret Lathe Operator Name Role Phone Hitesh Vega MD Primary Care Provider [phone] Encounter Details Date Type Department Care Team (Late st Contact Info) Description 02/17/2010 Emergency [facility] Emergency [facility] [address] [place] [address] Breonna Benítez Esophageal reflux (Primary Dx) Social History Tobacco Use Types Packs/Day Years Used Date Smoking Tobacco: Never Assessed Sex and Gender Information Value Date Recorded Sex Assigned at Not on file 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
--- OUTSIDE RECORDS SUMMARY | 2025-02-20 05:39 | XMS_ITS | Clinical Summary ---
Author Organization [facility] Address [address] [address] Phone Care Team Providers Care Nut Sifter Name Role Phone Unavailable Primary Care Provider [...] patient's age to complete this topic Insurance [place] [address] [employer]
[2025-02-20] MEDS: piperacillin-tazobactam 3.375 GM in sodium chloride 0.9% (plus) 50 ML IV ×3 (06:15→22:45)
--- NOTE | 2025-02-20 06:59 | PM.CONSULT ---
Providers/Reason For Consult Consulting Physician/Specialty*: General Surgery Reason for Consult*: Acute cholecystitis Attending Physician: Oneal Salcido MD Primary Care Provider: Mauricio Parks History of Present Illness History of Present Illness Tapan Russo is a 89 year old male With extensive cardiac history including heart failure and stent placed on August of this year. He is currently on dual antiplatelet therapy and unable to stop it due to stent placement. He presented initially on Monday with epigastric abdominal pain of the time workup was unremarkable he was allowed to go home but over the last 24 hours explained has become unbearable and he returned to the hospital CT scan showed evidence of acute cholecystitis with severe inflammation in the right upper quadrant that involves the right hepatic flexure and severe amount of gallbladder wall edema and pericholecystic fluid. Review of Systems General: Reports: 10 or more systems reviewed and unremarkable except in HPI and below Medications/Allergies Home Medications ?Medication ?Instructions ?Recorded ?Confirmed ?Last Taken ?Type finasteride 5 mg tablet (Proscar) 5 mg PO BEDTIME 04/28/22 02/16/25 02/15/25 History tamsulosin 0.4 mg capsule 0.8 mg PO BEDTIME 04/28/22 02/16/25 02/15/25 History aspirin 81 mg tablet,delayed 81 mg PO DAILY #90 tabs 08/01/24 02/16/25 02/15/25 Rx release clopidogrel 75 mg tablet 75 mg PO DAILY #90 tabs 11/21/24 02/16/25 02/15/25 Rx furosemide 40 mg tablet (Lasix) 40 mg PO DAILY #90 tabs 11/21/24 02/16/25 02/15/25 Rx metoprolol succinate 25 mg 12.5 mg (1/2 x 25 mg) PO DAILY #90 11/21/24 02/16/25 02/15/25 Rx tablet,extended release 24 hr tabs sacubitril 49 mg-valsartan 51 mg 1 tab PO BID #180 tabs 11/21/24 02/16/25 02/15/25 Rx tablet (Entresto) simvastatin 80 mg tablet 80 mg PO BEDTIME #90 tabs 11/21/24 02/16/25 02/15/25 Rx levothyroxine 125 mcg tablet 125 mcg PO DAILY 02/16/25 02/16/25 02/15/25 07:00 History potassium chloride 20 mEq 20 meq PO BID 02/16/25 02/16/25 02/15/25 History tablet,extended release empagliflozin 10 mg tablet 10 mg PO DAILY #30 tabs 02/17/25 Unknown Rx (Jardiance) pantoprazole 40 mg tablet,delayed 40 mg PO QAM #60 tabs 02/17/25 Unknown Rx release (Protonix) Allergies Allergy/AdvReac Type Severity Reaction Status Date / Time No Known Allergies Allergy Verified 02/16/25 08:08 Current Medications Generic Name Dose Route Start Last Admin Trade Name Freq PRN Reason Stop Dose Admin Aspirin 81 mg 02/20/25 05:00 02/20/25 05:00 Aspirin 81 Mg Ec Tablet PO Not Given DAILY PRINCE Enoxaparin Sodium 40 mg 02/20/25 02:20 02/20/25 02:45 Enoxaparin 40 Mg/0.4 Ml Syringe SUBCUT 40 mg Q24H PRINCE Administration Sodium Chloride 1,000 mls @ 50 mls/hr 02/20/25 02:20 02/20/25 04:49 Sodium Chloride 0.9% IV 02/20/25 22:19 50 mls/hr .Q20H PRINCE Administration Piperacillin Sod/Tazobactam 50 mls @ 12.5 mls/hr 02/20/25 05:45 02/20/25 06:15 Sod 3.375 gm/ Sodium Chloride IV 12.5 mls/hr Q8H PRINCE Administration Protocol Levothyroxine Sodium 125 mcg 02/20/25 05:00 02/20/25 05:00 Levothyroxine 125 Mcg Tablet PO Not Given DAILY PRINCE Metoprolol Succinate 12.5 mg 02/20/25 05:00 02/20/25 04:57 Metoprolol Succinate Er (24 Hr) 25 Mg Tablet PO 12.5 mg DAILY PRINCE Administration Morphine Sulfate 2 mg 02/20/25 02:20 02/20/25 05:37 Morphine 4 Mg/Ml Sdv 1 Ml IVP 2 mg Q4H PRN Administration SEVERE PAIN Pantoprazole Sodium 40 mg 02/20/25 02:20 02/20/25 02:45 Pantoprazole 40 Mg Sdv IVP 40 mg Q24H PRINCE Administration PFSH Acute PFSH: Medical History (Updated 02/20/25 @ 07:05 by Helio Espinoza MD) Hypertension Hypothyroidism Acute on chronic systolic heart failure Coronary artery disease Surgical History Coronary angioplasty status Social History Smoking and tobacco/nicotine status: former use of tobacco/nicotine (quit 1968) Vitals/I&O/Wt Last Vital Signs Temp 98.1 F 02/20/25 04:00 Pulse 76 02/20/25 04:00 Resp 20 H 02/20/25 05:37 BP 104/68 02/20/25 04:00 Pulse Ox 92 02/20/25 05:37 O2 Del Method Nasal Cannula 02/20/25 04:38 O2 Flow Rate 2 02/20/25 04:38 02/19/25 02/19/25 02/20/25 14:59 22:59 06:59 Intake Total 50 / 50 Balance 50 / 50 Weight last 48 hrs Weight 198 lb 1 oz Weight 190 lb 9.6 oz Weight 190 lb Physical Exam GI: OTHER: There is abdominal pain especially in the right upper quadrant, Carson sign is positive. Data 02/19/25 22:26 02/19/25 22:26 A&P Assessment and plan 1. Acalculous cholecystitis: 2. Acute on chronic systolic heart failure: 3. Heart failure: 4. Coronary artery disease: 5. Dyspnea on exertion: 6. Dyslipidemia: 7. VALORIE (acute kidney injury): Plan: This is a 89-year-old male with severe Acalculous acute cholecystitis, patient has significant symptoms including severe abdominal pain shortness of breath and has been wheezing. He has extensive cardiac history, had recent stents and needs to continue anticoagulation. His ASA score is 4 and roe comorbidity index is 6, in the setting surgical intervention for removal of the gallbladder cannot be safely performed due to significant risk for major intraoperative bleeding due to dual antiplatelet therapy in the setting of major inflammation on the right upper quadrant. The onset of his symptoms are also more than 72 hours ago indicating that the amount of inflammation is likely severe which is concordant with the findings of the imaging. As guided by the current clinical guidelines for the management of acute cholecystitis in patients with elevated operative risk, the initial management should be IV antibiotics fluids resuscitation and in the case of lack of clinical improvement patient will need to be transferred out to higher level of care for IR guided cholecystostomy tube placement. I had extensive discussion with the patient regarding his situation, He shows understanding and is agreeable with the plan. I would recommend that we keep the patient n.p.o. at least for the next 24 hours, continue IV fluids, continue IV antibiotics and all additional management per medical team. If there is lack of improvement in the next 24 hours we should consider cholecystostomy tube placement PDMP PDMP Reviewed: Not Reviewed Coding Level of Care Code Acute Code for Chg Fwd Diagnoses Acalculous cholecystitis K81.9 Acute on chronic systolic heart failure I50.23 Heart failure chronicity: acute on chronic Heart failure I50.9 Coronary artery disease I25.10 Dyspnea on exertion R06.09 Dyslipidemia E78.5 VALORIE (acute kidney injury) N17.9
[2025-02-20 10:03] LABS: Hematocrit 34.0 % (37-53); Hemoglobin 11.20 g/dL (11.27-16.99); Mean Corpuscular HGB Conc 32.9 g/dL (30-55); Mean Corpuscular Hemoglobin 33.2 pg (27-33); Mean Corpuscular Volume 100.9 fl (82-101); Platelet Count 215 10^3/cmm (157-399); Red Blood Count 3.37 10^6/uL (3.85-5.65); White Blood Count 10.97 10^3/uL (3.29-11.43)
[2025-02-20 10:27] LABS: Alanine Aminotransferase 66 U/L (0-41); Albumin Level 3.8 g/dL (3.5-5.2); Alkaline Phosphatase 116 U/L (40-130); Anion Gap 22.2 (5-19); Aspartate Amino Transferase 37 U/L (0-40); Blood Urea Nitrogen 35 mg/dL (8-23); Calcium 8.8 mg/dL (8.5-10.5); Carbon Dioxide 22 mmol/L (22-29); Chloride 100 mmol/L (98-107); Creatinine Clr Calc Pharmacy 33.3311; Globulin 3.2 g/dL (1.3-4.6); Glucose 124 mg/dL (65-115); Osmolality Calculated 299 mOsm/kg (285-295); Potassium 4.2 mmol/L (3.5-5.1); Sodium 140 mmol/L (136-145); Total Protein 7.0 g/dL (6.6-8.7)
[2025-02-20 10:28] LABS: Procalcitonin 0.92 ng/mL (0-0.5)
--- NOTE | 2025-02-20 10:28 | PC.PHAR ---
Patient received a prescription for Jardiance On 02/17/25 and it was sent to [facility]. Patient can't afford it . [facility].
[2025-02-20 10:30] LABS: Slide Review Slide Review Perform
[2025-02-20 10:31] LABS: Absolute Segmented Neutrophil 9.3 10/cmm (1.6-7.1); Atypical Lymphs 0.0 % (0-5); Band Neutrophils Absolute 0.5 10^3/cmm (0.0-1.2); Total Cells Counted 100 (0-100)
[2025-02-20] MEDS: vancomycin 1,750 MG/350 ML PIGGYBACK 175 MG IV (12:10)
--- NOTE | 2025-02-20 12:14 | PM.MISC ---
Miscellaneous Note Purpose of Documentation: Update on patient care Note: I saw the patient this afternoon, has been stable, feeling much better in terms of pain, has been breathing well. The vital signs are stable. I have encouraged him to ambulate this afternoon. If he continues to progress in the same manner will output him to have clear liquid diet tomorrow morning and he will likely stay in the hospital for another 48 to 72 hours for IV antibiotics. If there is any clinical deterioration we will have to proceed with cholecystostomy tube placement. He shows understanding he is agreeable with the plan.
--- NOTE | 2025-02-20 19:45 | PM.MISC ---
Miscellaneous Note Purpose of Documentation: update on patient care Note: Have re-evaluated patient. while he is stable and abdominal pain is improving, the clinical progression is slow and he has significant tenderness in the RUQ consistent with the hydropic gallblader seen on imaging. In this setting I think the best course of action will be to proceed with Cholecystostomy tube placment. Patient will be kept NPO and procedure ordered. will discuss with radiologist in the morning for planning. Patient shows understanding and agrees with plan
[2025-02-21 00:51] VITALS: BP 108/67; PULSE 98; RESP 16; TEMP 36.7; O2SAT 96
[2025-02-21 04:00] VITALS: BP 98/55; PULSE 94; RESP 17; TEMP 36.8; O2SAT 95
[2025-02-21] MEDS: pantoprazole 40 mg SDV IVP (04:07)
[2025-02-21 05:14] LABS: Hematocrit 31.8 % (37-53); Hemoglobin 10.40 g/dL (11.27-16.99); Mean Corpuscular HGB Conc 32.7 g/dL (30-55); Mean Corpuscular Hemoglobin 32.7 pg (27-33); Mean Corpuscular Volume 100.0 fl (82-101); Nucleated Red Blood Cells % 0 %; Platelet Count 207 10^3/cmm (157-399); Red Blood Count 3.18 10^6/uL (3.85-5.65); White Blood Count 10.98 10^3/uL (3.29-11.43)
[2025-02-21 05:34] LABS: Alanine Aminotransferase 47 U/L (0-41); Albumin Level 3.3 g/dL (3.5-5.2); Alkaline Phosphatase 106 U/L (40-130); Anion Gap 19.1 (5-19); Aspartate Amino Transferase 29 U/L (0-40); Blood Urea Nitrogen 41 mg/dL (8-23); Calcium 8.6 mg/dL (8.5-10.5); Carbon Dioxide 24 mmol/L (22-29); Chloride 103 mmol/L (98-107); Globulin 3.1 g/dL (1.3-4.6); Glucose 122 mg/dL (65-115); Osmolality Calculated 305 mOsm/kg (285-295); Potassium 4.1 mmol/L (3.5-5.1); Sodium 142 mmol/L (136-145); Total Protein 6.4 g/dL (6.6-8.7)
[2025-02-21 06:00] VITALS: PULSE 72
[2025-02-21 06:03] LABS: Slide Review Slide Review Perform
[2025-02-21] MEDS: piperacillin-tazobactam 3.375 GM in sodium chloride 0.9% (plus) 50 ML IV ×2 (06:12→13:57)
[2025-02-21 07:24] VITALS: BP 125/66; PULSE 79; RESP 15; TEMP 36.7; O2SAT 95
[2025-02-21 07:55] VITALS: PULSE 78; RESP 16; O2SAT 93
--- NOTE | 2025-02-21 08:23 | PM.PN ---
Subjective Subjective: Clinically appears to be improving, abdominal pain is well-controlled this morning no nausea or vomiting over the last 24 hours. Vitals/I&O/Wt Last Vital Signs Temp 98.1 F 02/21/25 07:24 Pulse 78 02/21/25 07:55 Resp 16 02/21/25 07:55 BP 125/66 02/21/25 07:24 Pulse Ox 93 02/21/25 07:55 O2 Del Method Nasal Cannula 02/21/25 07:55 O2 Flow Rate 2.5 02/21/25 07:55 02/20/25 02/21/25 02/21/25 22:59 06:59 14:59 Intake Total 340 / 390 1050 / 1440 Balance 340 / 140 1050 / 1190 Weight last 48 hrs Weight 198 lb Weight 198 lb 1 oz Weight 190 lb 9.6 oz Weight 190 lb Physical Exam GI: OTHER: Abdominal examination is benign the abdomen is soft there is only mild tenderness in the right upper quadrant much improved from yesterday Data 02/21/25 05:03 02/21/25 05:03 A&P Assessment and plan 1. Acalculous cholecystitis: 2. VALORIE (acute kidney injury): Plan: 89-year-old male with acalculous cholecystitis in the setting of multiple comorbidities and current dual antiplatelet therapy. While he is clinically improving and pain is better controlled his CRP is still very elevated at 330. He also still has a persistent VALORIE. With this findings I think it would be reasonable to proceed with gallbladder decompression to allow for resolution of the current acute inflammatory process. I have discussed with the patient that after cholecystostomy tube placement we should discuss the possibility of a cholecystectomy in 6 to 8 weeks once the inflammation has settled. He shows understanding agrees with the plan. Cholecystostomy tube has been order, awaiting radiology confirmation regarding availability. PDMP PDMP Reviewed: Not Reviewed Attestations Medical Necessity Statement*: Per medical team Coding Level of Care Code Acute Code for [facility] Fwd Diagnoses Acalculous cholecystitis K81.9 VALORIE (acute kidney injury) N17.9
--- NOTE | 2025-02-21 09:49 | PM.MISC ---
Miscellaneous Note Purpose of Documentation: Update on patient care Note: Case was discussed with radiology, there is agreement that patient will benefit from biliary decompression. due to technical complexity as well as increased risk and taking consideration patient current clinical condition the recomendation has been made for evaluation at higher level of care for dedicated IR. This has been discussed with medical team and they are in agreement. Patient is also agreable for transition to higher level of care
[2025-02-21 11:12] VITALS: BP 115/62; PULSE 68; RESP 15; TEMP 36.7; O2SAT 97
--- NOTE | 2025-02-21 11:30 | P.TS_ITS ---
Transfer Summary Providers Date of Admission: 02/21/25 08:26 Date of Discharge/Transfer: 02/21/25 Attending Provider at Admission: Oneal Salcido MD Attending Provider at Transfer: Daniel Hudson MD Consults: Surgery: Dr. Vijay Rivera Primary Care Provider: Mauricio Parks Transfer Plans: Anticipated date of transfer: 02/21/25 . Receiving Facility: [facility] . Receiving Provider: Dr. Estrada . Diagnoses at Discharge Discharge Diagnosis 1. Acalculous cholecystitis: 2. VALORIE (acute kidney injury): 3. Coronary artery disease: 4. Acute on chronic systolic heart failure: 5. Benign hypertension: Reason for Visit Reason for Visit trouble breathing Brief History: Tapan Russo is a 89 year old male with a past medical history of CAD, status post stenting, on aspirin, Plavix, systolic and diastolic CHF, recent hospitalization for chest pain, status post stress testing, hypothyroidism who presents [facility] for chest pain, shortness of breath, right shoulder pain, right upper quadrant abdominal pain. Currently patient alert orientated x 3, following all commands, he is hard of hearing, he reports pain in his right shoulder, radiating into his right chest, he is also tender in the right upper quadrant complains of shortness of breath, feels nauseous, no vomiting, no diarrhea, no constipation Hospital Course Hospital Course Patient was admitted to the hospital further evaluation and management abdominal pain with concerns for acute cholecystitis. He was started on IV antibiotics. Surgery was consulted. As per surgical opinion because of his multiple comorbidities, currently on DAPT even though patient was clinically improving but still elevated CRP and persistent VALORIE decision was made to go ahead with decompression with cholecystostomy tube. Care were discussed in detail with in- house radiology team who recommended due to technical difficulties patient would benefit more with a dedicated IR team. Transfer was sought for the same reason to address recent or radiated IR team is available. Patient has been accepted at [facility] and has been transferred in hemodynamically stable condition for further treatment Physical Exam Const: COMMON NORMALS: no acute distress and patient oriented x3 HENMT: COMMON NORMALS: normocephalic HEAD & SCALP: normocephalic Neck/C-Spine: COMMON NORMALS: no JVD Resp: COMMON NORMALS: normal respiratory effort, No retractions, No use of accessory muscles and clear to auscultation bilaterally AUSCULTATION: clear to auscultation bilaterally Cardio: COMMON NORMALS: no JVD, regular rate, regular rhythm, S1 normal heart sound present and S2 normal heart sound present RATE: regular rate RHYTHM: regular rhythm HEART SOUNDS: S1 normal heart sound present and S2 normal heart sound present GI: COMMON NORMALS: Normal to inspection, nondistended, normoactive bowel sounds present and Soft to palpation PALPATION: Yes Soft to palpation OTHER: Right upper quadrant tenderness Extremity: COMMON NORMALS: no calf tenderness and no pedal edema Neuro: COMMON NORMALS: patient oriented x3, CN's II-XII intact bilaterally, moves all extremities and no focal motor deficits Psych: COMMON NORMALS: mental status grossly normal TS Data Studies Completed and Pending Pending at discharge Category Date Time Status Blood Culture Stat Lab 02/20/25 03:13 Received Complete Blood Count w/Auto AM LABS Lab 02/22/25 04:00 Ordered Comprehensive Metabolic Panel AM LABS Lab 02/22/25 04:00 Ordered Vancomycin Trough Timed Lab 02/21/25 12:00 Ordered CV. echo complete* [id number] Routine Ultrasound 02/20/25 02:20 Taken Completed Studies During Hospitalization Category Date Time Status CT PE [CT angio chest PE protcl [id number]] Stat Cat Scan 02/19/25 22:[address] abdomen pelvis wo con [id number] Stat Cat Scan 02/19/25 22:52 Completed XR chest 1V portable [id number] Stat Exams 02/19/25 22:08 Completed US gall bladder [id number] Routine Ultrasound 02/20/25 02:20 Completed Laboratory Last Values WBC 10.98 10^3/uL (3.29-11.43) 02/21/25 05:03 RBC 3.18 10^6/uL (3.85-5.65) L 02/21/25 05:03 Hgb 10.40 g/dL (11.27-16.99) L 02/21/25 05:03 Hct 31.8 % (37-53) L 02/21/25 05:03 MCV 100.0 fl (82-101) 02/21/25 05:03 MCH 32.7 pg (27-33) 02/21/25 05:03 MCHC 32.7 g/dL (30-55) 02/21/25 05:03 RDW 13.4 % (12.1-15.1) 02/21/25 05:03 Plt Count 207 10^3/cmm (157-399) 02/21/25 05:03 MPV 10.2 fL (7.4-10.4) 02/21/25 05:03 Neut % (Auto) 85.9 % 02/21/25 05:03 Lymph % (Auto) 3.1 % 02/21/25 05:03 [place] % (Auto) 9.5 % 02/21/25 05:03 Eos % (Auto) 0.6 % 02/21/25 05:03 Baso % (Auto) 0.2 % 02/21/25 05:03 Neut # (Auto) 9.43 10^3/uL (1.8-7.7) H 02/21/25 05:03 Lymph # (Auto) 0.3 10^3/uL (0.8-4.8) L 02/21/25 05:03 [place] # (Auto) 1.0 10^3/uL (0.2-0.9) H 02/21/25 05:03 Eos # (Auto) 0.1 10^3/uL (0.0-0.8) 02/21/25 05:03 Baso # (Auto) 0.0 10^3/uL (0.0-0.1) 02/21/25 05:03 Nucleated RBC % (auto) 0 % 02/21/25 05:03 Total Counted 100 (0-100) 02/20/25 03:06 Atypical Lymphs % 0.0 % (0-5) 02/20/25 03:06 Absolute Neutrophils 9.9 10^3/cmm (1.4-6.5) H 02/20/25 03:06 Segmented Neutrophils 85 % 02/20/25 03:06 Band Neutrophils 5.0 % 02/20/25 03:06 Absolute Lymphocytes 0.0 10^3/cmm (1.2-3.4) L 02/20/25 03:06 Lymphocytes (Manual) 0 % 02/20/25 03:06 Monocytes (Manual) 10.0 % 02/20/25 03:06 Absolute Monocytes 1.1 10^3/cmm (0.1-0.6) H 02/20/25 03:06 Eosinophils (Manual) 0 % 02/20/25 03:06 Absolute Eosinophils 0.0 10^3/cmm (0.0-0.7) 02/20/25 03:06 Basophils (Manual) 0.0 % 02/20/25 03:06 Absolute Basophils 0.0 10^3/cmm (0.0-0.2) 02/20/25 03:06 Nucleated RBCs # 0.0 /100WBC 02/21/25 05:03 Platelet Estimate Normal (Normal) 02/20/25 03:06 Specimen Type Arterial 02/19/25 22:18 Sample Site Radial, right 02/19/25 22:18 ABG pH 7.43 (7.35-7.45) 02/19/25 22:18 ABG pCO2 34.6 mmHg (35-45) L 02/19/25 22:18 ABG pO2 60.6 mmHg (80.0-100.0) L 02/19/25 22:18 ABG HCO3 23.0 mmol/L (22-26) 02/19/25 22:18 ABG O2 Saturation 92.5 02/19/25 22:18 ABG Base Excess -0.8 mmol/L (-2.0-2.0) 02/19/25 22:18 Pablo Test Pos 02/19/25 22:18 A-a O2 Gradient 6.1 mmHg (5-10) 02/19/25 22:18 Hematocrit 34.7 % (42-52) L 02/19/25 22:18 Hgb O2 Saturation 90.7 % (95-100) L 02/19/25 22:18 Carboxyhemoglobin 0.9 %THgb (0.4-20.1) 02/19/25 22:18 Methemoglobin 1.0 % (0.4-1.5) 02/19/25 22:18 Total Hemoglobin 11.3 g/dL (14-18) L 02/19/25 22:18 Sodium 138.0 mmol/L (131-143) 02/19/25 22:18 Potassium 3.9 mmol/L (3.5-5.0) 02/19/25 22:18 Glucose 146.0 mg/dL (70-115) H 02/19/25 22:18 Ionized Calcium 1.1 mmol/L (1.1-1.4) 02/19/25 22:18 O2 Delivery Device Room air 02/19/25 22:18 Lead Case Manager ID [email or web address] 02/19/25 22:18 Sodium 142 mmol/L (136-145) 02/21/25 05:03 Potassium 4.1 mmol/L (3.5-5.1) 02/21/25 05:03 Chloride 103 mmol/L (98-107) 02/21/25 05:03 Carbon Dioxide 24 mmol/L (22-29) 02/21/25 05:03 Anion Gap 19.1 (5-19) H 02/21/25 05:03 BUN 41 mg/dL (8-23) H 02/21/25 05:03 Creatinine 2.5 mg/dL (0.7-1.2) H 02/21/25 05:03 GFR Calculation Not Reportable 02/21/25 05:03 Glucose 122 mg/dL (65-115) H 02/21/25 05:03 POC Glucose 120 mg/dL (70-110) H 02/21/25 11:15 Calculated Osmolality 305 mOsm/kg (285-295) H 02/21/25 05:03 Lactic Acid 1.5 mmol/L (0.5-2.2) 02/19/25 22:26 Calcium 8.6 mg/dL (8.5-10.5) 02/21/25 05:03 Total Bilirubin 0.4 mg/dL (0.15-1.2) 02/21/25 05:03 AST 29 U/L (0-40) 02/21/25 05:03 ALT 47 U/L (0-41) H 02/21/25 05:03 Alkaline Phosphatase 106 U/L (40-130) 02/21/25 05:03 Troponin T Baseline 28 ng/L (0-15) H 02/19/25 22:26 Troponin T 120 Minute 29.06 ng/L (0-15) H 02/20/25 01:04 Delta Troponin T 1.06 ABS# (0-10) 02/20/25 01:04 C-Reactive Protein 330.2 mg/L (0.0-4.9) H 02/21/25 05:03 NT-Pro-B Natriuret Pep 5752 pg/mL (0-450) H 02/19/25 22:26 Total Protein 6.4 g/dL (6.6-8.7) L 02/21/25 05:03 Albumin 3.3 g/dL (3.5-5.2) L 02/21/25 05:03 Globulin 3.1 g/dL (1.3-4.6) 02/21/25 05:03 Lipase 15 U/L (13-60) 02/20/25 03:06 Procalcitonin 0.92 ng/mL (0-0.5) H 02/20/25 03:06 TSH 3.82 uIU/mL (0.27-4.20) 02/20/25 03:06 Urine Color Yellow (Yellow) 02/20/25 02:30 Urine Appearance Cloudy (CLEAR) A 02/20/25 02:30 Urine pH 5.0 (5-7) 02/20/25 02:30 Ur Specific [place] 1.027 (1.005-1.030) 02/20/25 02:30 Urine Protein 1+ (Negative) A 02/20/25 02:30 Urine Glucose (UA) Negative (Normal) 02/20/25 02:30 Urine Ketones Negative (Negative) 02/20/25 02:30 Urine Blood 1+ (Negative) A 02/20/25 02:30 Urine Nitrate Negative (Negative) 02/20/25 02:30 Urine Bilirubin Negative (Negative) 02/20/25 02:30 Urine Urobilinogen 1.0 mg/dL (Negative) 02/20/25 02:30 Ur Leukocyte Esterase Negative (Negative) 02/20/25 02:30 Urine RBC 0-2 /hpf (0-2) 02/20/25 02:30 Urine WBC 0-5 /hpf (0-5) 02/20/25 02:30 Ur Squamous Epith Cells 0-5 /hpf (0-5) 02/20/25 02:30 Amorphous Sediment Not Reportable 02/20/25 02:30 Urine Bacteria None seen /hpf (NONE) 02/20/25 02:30 Hyaline Casts 33.93 /lpf 02/20/25 02:30 Urine Mucus 1+ /hpf 02/20/25 02:30 Influenza A (PCR) Negative (Negative) 02/19/25 22:32 Influenza Type B (PCR) Negative (Negative) 02/19/25 22:32 RSV (PCR) Negative (Negative) 02/19/25 22:32 SARS-CoV-2 (PCR) Negative (Negative) 02/19/25 22:32 Radiology Impressions Chest X-Ray 02/19/25 22:08 IMPRESSION: No acute findings. Chest CTA 02/19/25 22:13 IMPRESSION: 1. No evidence of pulmonary embolus. 2. Trace right pleural effusion. 3. Acute cholecystitis. Please refer to CT abdomen pelvis report. Abdomen/Pelvis CT 02/19/25 22:52 IMPRESSION: 1. Findings consistent with acute cholecystitis. No visible gallstones. 2. Mild colitis in the hepatic flexure portion of the colon as it passes adjacent to the inflamed gallbladder. 3. Small bowel ileus. 4. Diverticulosis of the colon without diverticulitis. 5. Asymmetric enlargement of the left prostate. An underlying neoplastic process is not excluded. COMMENTS: Consistent with the [place] [employer]'s Incidental Findings Committee white paper (J Am Meet Radiol 2018): Any incidental renal lesion less than 1 cm or classified as too small to characterize, or any incidental cystic renal lesion characterized as simple-appearing, is likely benign. No follow-up imaging is recommended for these lesions per consensus recommendations based on imaging criteria. Gallbladder Ultrasound 02/20/25 02:20 IMPRESSION: 1. Limited RIGHT upper quadrant ultrasound evaluation. 2. Hydropic gallbladder with mild wall thickening and adjacent fluid. No stones are identified. Findings are highly suspicious for acute acalculous cholecystitis. CT of 02/19/2025 was also highly suspicious for acute cholecystitis. Recent Clincial Data Last Vital Signs Temp 98.1 F 02/21/25 07:24 Pulse 78 02/21/25 07:55 Resp 16 02/21/25 07:55 BP 125/66 02/21/25 07:24 Pulse Ox 93 02/21/25 07:55 O2 Del Method Nasal Cannula 02/21/25 07:55 O2 Flow Rate 2.5 02/21/25 07:55 Vital Signs Temp Pulse Resp BP Pulse Ox O2 Del Method O2 Flow Rate 02/21/25 07:55 78 16 93 Nasal Cannula 2.5 02/21/25 07:24 98.1 F 79 15 125/66 95 Nasal Cannula 2.5 02/21/25 06:00 72 02/21/25 04:00 98.2 F 94 17 98/55 95 Nasal Cannula 2.5 02/21/25 00:51 98.1 F 98 16 108/67 96 Room Air 02/20/25 23:39 Nasal Cannula 2 Intake & Output/Weight 02/19/25 02/20/25 02/21/25 02/22/25 06:59 06:59 06:59 06:59 Intake Total 50 / 50 1440 / 1440 50 / 50 Output Total 250 / 250 Balance 50 / 50 1190 / 1190 50 / 50 Weight 89.84 kg 89.811 kg Vitals Last Vital Signs Temp 98.1 F 02/21/25 07:24 Pulse 78 02/21/25 07:55 Resp 16 02/21/25 07:55 BP 125/66 02/21/25 07:24 Pulse Ox 93 02/21/25 07:55 O2 Del Method Nasal Cannula 02/21/25 07:55 O2 Flow Rate 2.5 02/21/25 07:55 TS Medications Medications Acetaminophen (Acetaminophen 325 Mg Tablet) 650 mg PO Q6H PRN PRN Reason: Mild/Mod Pain Or Temp >/= 101 Last Admin: 02/20/25 17:58 Dose: 650 mg Albuterol/Ipratropium (Ipratropium-Albuterol 3 Ml Neb) 3 ml INHALATION Q6H PRN PRN Reason: SHORTNESS OF BREATH Aspirin (Aspirin 81 Mg Ec Tablet) 81 mg PO DAILY PRINCE On Hold: 02/20/25 22:27 Last Admin: 02/20/25 05:00 Dose: Not Given Atorvastatin Calcium (Atorvastatin 40 Mg Tablet) 40 mg PO BEDTIME PRINCE Last Admin: 02/20/25 21:00 Dose: 40 mg Enoxaparin Sodium (Enoxaparin 40 Mg/0.4 Ml Syringe) 40 mg SUBCUT Q24H PRINCE On Hold: 02/20/25 12:34 Last Admin: 02/20/25 02:45 Dose: 40 mg Finasteride (Finasteride 5 Mg Tablet) 5 mg PO BEDTIME PRINCE Last Admin: 02/20/25 20:58 Dose: 5 mg Glucagon (Glucagon 1 Mg/Ml Kit 1 Ml) 1 mg IM ONCE PRN; Protocol PRN Reason: Adult Acute Hypoglycemia Nursing Prot. Dextrose (D5w) 500 mls @ 0 mls/hr IV ONCE PRN; Protocol PRN Reason: Adult Acute Hypoglycemia Prot Dextrose (D10w) 125 mls @ 750 mls/hr IV PRN PRN; Protocol PRN Reason: Adult Acute Hypoglycemia Nursing Protocol Dextrose (D10w) 250 mls @ 1,000 mls/hr IV PRN PRN; Protocol PRN Reason: Adult Acute Hypoglycemia Nursing Protocol Piperacillin Sod/Tazobactam (Sod 3.375 gm/ Sodium Chloride) 50 mls @ 12.5 mls/hr IV Q8H PRINCE; Protocol Last Infusion: 02/21/25 10:56 Dose: Infused Sodium Chloride (Sodium Chloride 0.9%) 1,000 mls @ 50 mls/hr IV .Q20H PRINCE Levothyroxine Sodium (Levothyroxine 125 Mcg Tablet) 125 mcg PO DAILY [facility] Last Admin: 02/21/25 06:08 Dose: Not Given Metoprolol Succinate (Metoprolol Succinate Er (24 Hr) 25 Mg Tablet) 12.5 mg PO DAILY [facility] Last Admin: 02/21/25 06:09 Dose: Not Given Morphine Sulfate (Morphine 4 Mg/Ml Sdv 1 Ml) 2 mg IVP Q4H PRN PRN Reason: SEVERE PAIN Last Admin: 02/20/25 05:37 Dose: 2 mg Naloxone HCl (Naloxone 0.4 Mg/Ml Sdv) 0.1 mg IVP Q2M PRN PRN Reason: OPIATERV Nitroglycerin (Nitroglycerin 0.4 Mg Sublingual Tablet) 0.4 mg SUBLINGUAL Q5M PRN PRN Reason: CHEST PAIN Ondansetron HCl (Ondansetron 2 Mg/Ml Sdv 2 Ml) 4 mg IVP Q8H PRN PRN Reason: vomiting, or N/V if npo Pantoprazole Sodium (Pantoprazole 40 Mg Sdv) 40 mg IVP Q24H [facility] Last Admin: 02/21/25 04:07 Dose: 40 mg Tamsulosin HCl (Tamsulosin 0.4 Mg Capsule) 0.8 mg PO BEDTIME [facility] Last Admin: 02/20/25 20:57 Dose: 0.8 mg Vancomycin HCl (Vancomycin 1,000 Mg Sdv (Pharmacy Mix)) 0 mg XX PRN PRN PRN Reason: Pharmacy to Dose Discontinued Medications Aspirin (Aspirin 81 Mg Ec Tablet) 81 mg PO ONCE ONE Stop: 02/20/25 08:01 Last Admin: 02/20/25 08:37 Dose: 81 mg Clopidogrel Bisulfate (Clopidogrel 75 Mg Tablet) 75 mg PO DAILY [facility] Last Admin: 02/20/25 05:00 Dose: Not Given Clopidogrel Bisulfate (Clopidogrel 75 Mg Tablet) 75 mg PO DAILY [facility] Clopidogrel Bisulfate (Clopidogrel 75 Mg Tablet) 75 mg PO ONCE ONE Stop: 02/20/25 08:01 Last Admin: 02/20/25 08:37 Dose: 75 mg Furosemide (Furosemide 10 Mg/Ml Sdv 4ml) 40 mg IVP ONCE ONE Stop: 02/20/25 03:52 Last Admin: 02/20/25 04:49 Dose: 40 mg Piperacillin Sod/Tazobactam (Sod 4.5 gm/ Sodium Chloride) 50 mls @ 100 mls/hr IV ONCE ONE; Protocol Stop: 02/20/25 01:01 Last Infusion: 02/20/25 03:06 Dose: Infused Sodium Chloride (Sodium Chloride 0.9%) 1,000 mls @ 50 mls/hr IV .Q20H PRINCE Stop: 02/20/25 22:19 Last Infusion: 02/21/25 02:30 Dose: Infused Vancomycin HCl (Vancocin) 1,750 mg in 350 mls @ 175 mls/hr IV ONCE ONE Stop: 02/20/25 12:14 Last Admin: 02/20/25 12:10 Dose: 175 mls/hr Morphine Sulfate (Morphine 4 Mg/Ml Sdv 1 Ml) 4 mg IVP ONCE ONE Stop: 02/19/25 22:14 Last Admin: 02/19/25 23:20 Dose: 4 mg Ondansetron HCl (Ondansetron 2 Mg/Ml Sdv 2 Ml) 4 mg IVP ONCE ONE Stop: 02/19/25 22:14 Last Admin: 02/19/25 23:25 Dose: 4 mg Allergies No Known Allergies Allergy (Verified 02/16/25 08:08) Home Medications finasteride 5 mg tablet (Proscar) 5 mg PO BEDTIME 04/28/22 [History Confirmed 02/20/25] tamsulosin 0.4 mg capsule 0.8 mg PO BEDTIME 04/28/22 [History Confirmed 02/20/25] aspirin 81 mg tablet,delayed release 81 mg PO DAILY #90 tabs 08/01/24 [Rx Confirmed 02/20/25] clopidogrel 75 mg tablet 75 mg PO DAILY #90 tabs 11/21/24 [Rx Confirmed 02/20/25] furosemide 40 mg tablet (Lasix) 40 mg PO DAILY #90 tabs 11/21/24 [Rx Confirmed 02/20/25] metoprolol succinate 25 mg tablet,extended release 24 hr 12.5 mg (1/2 x 25 mg) PO DAILY #90 tabs 11/21/24 [Rx Confirmed 02/20/25] sacubitril 49 mg-valsartan 51 mg tablet (Entresto) 1 tab PO BID #180 tabs 11/21/24 [Rx Confirmed 02/20/25] simvastatin 80 mg tablet 80 mg PO BEDTIME #90 tabs 11/21/24 [Rx Confirmed 02/20/25] levothyroxine 125 mcg tablet 125 mcg PO DAILY 02/16/25 [History Confirmed 02/20/25] potassium chloride 20 mEq tablet,extended release 20 meq PO BID 02/16/25 [History Confirmed 02/20/25] empagliflozin 10 mg tablet (Jardiance) 10 mg PO DAILY #30 tabs 02/17/25 [Rx Confirmed 02/20/25] pantoprazole 40 mg tablet,delayed release (Protonix) 40 mg PO QAM #60 tabs 02/17/25 [Rx Confirmed 02/20/25] Discharge Plan Discharge Patient Disposition: Xfer Other Condition: Stable Prescriptions: No Action clopidogrel 75 mg tablet 75 mg PO DAILY Qty: 90 3RF furosemide [Lasix] 40 mg tablet 40 mg PO DAILY Qty: 90 3RF metoprolol succinate 25 mg tablet extended release 24 hr 12.5 mg PO DAILY Qty: 90 3RF Entresto 49-51 mg tablet 1 tab PO BID Qty: 180 3RF simvastatin 80 mg tablet 80 mg PO BEDTIME Qty: 90 3RF finasteride [Proscar] 5 mg tablet 5 mg PO BEDTIME tamsulosin 0.4 mg capsule 0.8 mg PO BEDTIME aspirin 81 mg tablet,delayed release (DR/EC) 81 mg PO DAILY Qty: 90 3RF potassium chloride 20 mEq tablet extended release 20 meq PO BID levothyroxine 125 mcg Tablet 125 mcg PO DAILY pantoprazole [Protonix] 40 mg tablet,delayed release (DR/EC) 40 mg PO QAM Qty: 60 0RF Rx Instructions: Twice daily for next 2 weeks followed by once daily Jardiance 10 mg tablet 10 mg PO DAILY Qty: 30 0RF Referrals: Mauricio Parks [Primary Care Provider] Patient Instructions: Opioid Safety, Patient Portal & Esetphanie Instructions Transfer Attestations Time Spent in Transfer Care: greater than 30 min Specific Discharge Activities: educating patient, educating and/or supporting family/caregiver, discussing with pcp/other providers, discussing with child welfare caseworker/social workers/dc planners, documenting/other paperwork and evaluating patient/reviewing data Status at Transfer: Cognitive status at transfer: cognitively intact ; Behavioral status at transfer: cooperative ; Functional status at transfer: independent ambulation ; Overall status at transfer: patient is not back to baseline Quality Metrics Clinical Quality Measures [ No reported AMI, CVA or VTE this stay] Coding Level of Care Code 83182 Total time (in minutes) for Discharge: 65 Diagnoses Acalculous cholecystitis K81.9 VALORIE (acute kidney injury) N17.9 Coronary artery disease I25.10 Acute on chronic systolic heart failure I50.23 Heart failure chronicity: acute on chronic Benign hypertension I10
[2025-02-21] MEDS: lidocaine 2% viscous 15 ML, aluminum-mag hydrox-simethicon 30 ML, sucralfate oral liq 1 GM PO (14:16)
== END 2025-02-21 15:00 | disposition short-term general hospital (02) | DRG 444 ==
LOC: ER 02-20 01:09 → MEDSURG 02-20 01:59
PROVIDERS: Surgery; Admitting Provider Family Medicine; Emergency Provider Emergency Medicine; PCP Family Medicine; Visit Provider Student in an Organized Health Care Education/Training Program
DX: K81.0 Acute cholecystitis (principal); I50.23 Acute on chronic systolic (congestive) heart failure; K82.1 Hydrops of gallbladder; N17.9 Acute kidney failure, unspecified; I25.10 Atherosclerotic heart disease of native coronary artery without angina pectoris; I11.0 Hypertensive heart disease with heart failure; E03.9 Hypothyroidism, unspecified; M25.511 Pain in right shoulder; Z79.82 Long term (current) use of aspirin; Z79.02 Long term (current) use of antithrombotics/antiplatelets; Z95.5 Presence of coronary angioplasty implant and graft
CPT/HCPCS: 36415; 36416; 36600; 71045; 71275; 74176; 76705; 80051; 80053; 80202; 81001; 82330; 82805; 82962; 83605; 83690; 83880; 84145; 84443; 84484; 85007; 85025; 86140; 87040; 87637; 93005; 93306; 94664; 96372; G0378; J1650; J1938; J2270; J2405; J2470; J2543; J3372; J7030; J9999